=== PATIENT | male | born 1955 | race Caucasian/White ===

== ENCOUNTER 2022-10-25 13:34 | Outpatient (CLI) | payer MEDICARE, OTHER, SELFPAY ==
--- NOTE | ~2022-10-25 | MR_ITS ---
EXAMINATION: MR brain/brain stem wo con DATE: 10/25/2022 14:36 INDICATION: Unspecified dementia, mild. Memory loss. TECHNIQUE: Magnetic resonance imaging (MRI) of the brain and brainstem was performed without intraven ous contrast. COMPARISON: None. FINDINGS: There is no intracranial hemorrhage, acute infarction, or abnormal intracranial mass lesion . There are scattered areas of nonspecific increased T2-weighted signal intensity in the cerebral whi te matter. The ventricles are normal in size. There are likely changes of ocular lens replacement antoni geries. There is mild mucosal thickening in the paranasal sinuses. The mastoid air cells are normal. IMPRESSION: 1. Mild nonspecific cerebral white matter disease, which likely represents chronic small vessel ische bettye disease. Reviewed, dictated and finalized at location E. IMPRESSION: 1. Mild nonspecific cerebral white matter disease, which likely represents children's librarian idania small vessel ischemic disease.
[2022-10-25 20:48] LABS: Folic Acid > 20.0 ng/mL (2.76->20)
== END 2022-10-25 13:35 | disposition home or self-care (01) ==
PROVIDERS: PCP Family Medicine Adolescent Medicine; Visit Provider Student in an Organized Health Care Education/Training Program
DX: F03.A0 Unspecified dementia, mild, without behavioral disturbance, psychotic disturbance, mood disturbance, and anxiety (principal); E78.00 Pure hypercholesterolemia, unspecified; R93.0 Abnormal findings on diagnostic imaging of skull and head, not elsewhere classified
CPT/HCPCS: 36415; 70551; 82607; 82746; 84443

== ENCOUNTER 2023-08-25 14:12 | Outpatient (CLI) | payer MEDICARE, OTHER, SELFPAY | END 2023-08-25 14:13 | disposition home or self-care (01) | LOC: ANHAUDASC 14:14 | PROVIDERS: PCP Family Medicine Adolescent Medicine; Visit Provider Otolaryngology | DX: H93.13 Tinnitus, bilateral (principal); H90.3 Sensorineural hearing loss, bilateral | CPT/HCPCS: 92557; 92567 ==

== ENCOUNTER 2023-09-24 10:05 | Emergency (ER) | payer MEDICARE, OTHER, SELFPAY ==
--- NOTE | 2023-09-24 10:09 | ED.URI ---
HPI - URI/Sore Throat General Chief Complaint: Upper Respiratory Infection Stated Complaint: RUNNY NOSE/COVID EXPOSURE Time Seen by Provider: 09/24/23 10:19 Source: patient and RN notes reviewed Mode of arrival: ambulatory Limitations: no limitations History of Present Illness HPI Narrative: 68-year-old male presents with concern for 5 day history of runny nose, stuffy nose. Reports he had a positive COVID test 2 days ago at home. He denies fever, body aches, chills, sweats. Denies cough. Reports his brother also has COVID MD elicited complaint: rhinorrhea and nasal congestion Related Data Home Medications Medication Instructions Recorded Confirmed lisinopril 10 mg tablet 10 mg PO DAILY 04/29/21 08/11/23 melatonin 1 mg tablet 2 mg PO QHS 04/29/21 08/11/23 simvastatin 20 mg tablet 20 mg PO DAILY 04/29/21 08/11/23 testosterone 1.62 % (40.5 mg/2.5 topical 01/11/23 08/11/23 gram) transdermal gel packet ferrous sulfate 325 mg (65 mg 325 mg PO DAILY 08/11/23 08/11/23 iron) tablet (Feosol) Allergies Allergy/AdvReac Type Severity Reaction Status Date / Time No Known Allergies Allergy Verified 09/24/23 10:10 Review of Systems Review of Systems: CONSTITUTIONAL: Denies malaise, chills, sweats, or fever. EYES: Denies visual changes, redness, or discharge. ENT: Reports rhinorrhea, congestion. Denies sinus pain, otalgia and sore throat. CARDIOVASCULAR: Denies chest pain, palpitations, or edema. RESPIRATORY: Denies cough. Denies dyspnea. GASTROINTESTINAL: Denies abdominal pain, nausea, vomiting, diarrhea SKIN: Denies rash or itching. MUSCULOSKELETAL: Denies myalgia. NEUROLOGIC: Denies headache. All systems reviewed & are unremarkable except as noted in HPI and below PMFSH Surgical History Surgical History History of cataract surgery Family History Family History Sibling Patient's sister is in good health Patient's brother is in good health Mother Family history of emphysema Father Family history of congestive heart failure Diabetes mellitus Cerebrovascular accident Heart disease Grandparent Diabetes mellitus Social History Social History Smoking status: Never smoker Second hand tobacco smoke exposure: No Alcohol intake: current Drinks per week: 2 Alcohol use details: every now and then Substance use: never Substance use type: does not use Do You Feel Safe in your Home?: Yes Lack of Transportation: No Lack of Food: Never True Current Housing: I Have Housing Concerned About Future Housing: No Difficulty Paying Gas/Electric Bills: No Difficulty Paying for Meds: No Currently Unemployed: No Education: Master's Degree or Higher Difficulty w/ Childcare or Family Care: No Living arrangements: with family Occupation/Education: occupation Gender identity (if verbalized by the patient): Male Sexual Orientation (if Verbalized by the Patient): Straight or Heterosexual Spiritual care concerns: No Agree to blood products: Yes Comments At time of signature, agree with nursing past medical, surgical, social and family history. There is no relevant family history pertinent to the presenting complaint Exam Narrative: GENERAL: Well-appearing, well-nourished, and in no acute distress. HEAD: Normocephalic EYES: PERRLA, conjunctivae clear ENT: Nares clear, clear discharge. Mucous membranes moist. TM pearly ramos with dull light reflex bilaterally; no tragal tenderness. Oropharynx not erythematous without lesions. Tonsils not enlarged and without exudate, no drooling, no hoarseness, no trismus, uvula midline. NECK: Supple. No lymphadenopathy CHEST: Clear to auscultation, breath sounds equal. No wheezing, rhonchi, rales, or stridor. No respiratory distress, speaks in full sentences. HEART: Regular rate and r
[2023-09-24 10:14] VITALS: BP 139/78; PULSE 91; RESP 16; TEMP 37.1; O2SAT 100
== END 2023-09-24 10:30 | disposition home or self-care (01) ==
PROVIDERS: Emergency Provider Nurse Practitioner; PCP Family Medicine Adolescent Medicine
DX: U07.1 COVID-19 (principal)
CPT/HCPCS: 99213; G0463

== ENCOUNTER 2024-02-20 15:51 | Outpatient (CLI) | payer MEDICARE, OTHER, SELFPAY | END 2024-02-20 15:52 | disposition home or self-care (01) | PROVIDERS: PCP Family Medicine Adolescent Medicine; Visit Provider Psychiatry & Neurology Neurology | DX: G30.9 Alzheimer's disease, unspecified (principal); F02.80 Dementia in other diseases classified elsewhere, unspecified severity, without behavioral disturbance, psychotic disturbance, mood disturbance, and anxiety | CPT/HCPCS: 0346U; 36415 ==

== ENCOUNTER 2024-04-18 14:15 | Outpatient (CLI) | payer MEDICARE, OTHER, SELFPAY ==
--- OUTSIDE RECORDS SUMMARY | 2024-04-18 14:14 | XMS_ITS | Referral Summary ---
Author Organization [facility] Address [address] [facility] [place] [address] Care Team Providers Care Wire Machine Operator Name Role Phone Antonio Peña MD Primary Care Provider + Source Comments [facility],non-owned Affiliates and Associated Physician Practices is amultiple site organization consisting of ambulatory clinics and hospital sitesin [place], [place], [place] and [place]. This disclosure is being madepursuant to the Care Everywhere program and may not contain all information available regarding this patient. Last updated 17.[employer] [facility] Allergies No known active allergies Medications Be aware that medications may not be up to date on this document. Always verify current medications with the patient. No known medications Immunizations Name Administration Dates Next Due INFLUENZA VACCINE, QUADR. (F LUZONE; FLULAVAL; FLUARIX; AFLURIA QUADRIVALENT; 6MO+), 0.5 ML (IIV4) 01/14/2017 iNFLUENZA VACCINE, RECOM-MCCANN, QUADR. (FLUBLOCK QUADRIVALENT; 18Y+) (RIV4) 02/22/2018 Social History Tobacco Use Types Packs/Day Years Used Date Smoking Tobacco: Never Assessed Sex and Gender Information Value Date Recorded Sex Assigned at Not on file Gender Identity Not on file Sexual Orientation Not on file Plan of Treatment Not on file Care Teams Wire Machine Operator Relationship Specialty Start Date End Date Antoino Peña MD [address] [facility] [address] [place] [address] PCP - General Family Medicine 01/14/17
--- OUTSIDE RECORDS SUMMARY | 2024-04-18 14:14 | XMS_ITS | Continuity of Care Document ---
Author Organization [facility] Address [address] [place] [address] [address] [place] [address] Phone Care Team Providers Care Fisheries Technical Officer Name Role Phone Reddy OD, Phani Unavailable Unavailable Procedures Procedure Date Eye Exam & Treatment Refraction Eye Exam & Treatment Refraction Advance Directives Directive Yes / No Effective Date File Name No Information Encounters Encounter Description Practice Location Reason(s) For Visit Diagnoses Date Provider Providers Copied on Encounter [facility], [address] [place] [address] [address], [place], [place], [id number], tel:[phone] [facility] No Information Nov-0 8-200 9 Reddy OD Phani. [address] [facility] , [address], [place], [place], [facility], . tel:[phone] Referring Provider: Antonio Peña MD, [address] [place] [address], [address]. tel:[phone] [facility], [address] [place] [address] [address], [place], [place], [address], tel:[phone] [facility] No Information 1-200 7 Reddy OD Phani. [address] [facility] [address], [address], [place], [address], . tel:[phone] Referring Provider: Antonio Peña MD, [address] [place] [address], [address]. tel:[phone] Family History Family Member Type Diagnosis Age At Onset No Information Payers Payer name Insurance type Covered democrat ID Amena riggs(s) [employer] Plan [id number] 2 Social History Type Description Quantity Date [...]
--- OUTSIDE RECORDS SUMMARY | 2024-04-18 14:14 | XMS_ITS | Patient Health Summary ---
Author Organization [facility] Address [address] [facility] [place] [address] Care Team Providers Care Biomedical Engineering Professor Name Role Phone Antonio Peña MD Primary Care Provider + Note from [facility],non-owned Affiliates and Associated Physician Practices is amultiple site organization consisting of ambulatory clinics and hospital sitesin [place]. This disclosure is being madepursuant to the Care Everywhere program and may not contain all information available regarding this patient. Last updated 17.[facility] Allergies No known active allergies Medications Be aware that medications may not be up to date on this document. Always verify current medications with the patient. No known medications Immunizations * INFLUENZA VACCINE, QUADR. (FLUZONE; FLULAVAL; FLUARIX; AFLURIA QUADRIVALENT; 6MO+), 0.5 ML (IIV4)(Given 01/14/2017) * iNFLUENZA VACCINE, RECOM-MCCANN, QUADR. (FLUBLOCK QUADRIVALENT; 18Y+) (RIV4)(Given 02/22/2018) Social History Tobacco Use Types Packs/Day Years Used Date Smoking Tobacco: Never Assessed Sex and Gender Information Value Date Recorded Sex Assigned at Not on file Gender Identity Not on file Sexual Orientation Not on file Care Teams Biomedical Engineering Professor Relationship Specialty Start Date End Date Antonio Peña MD [address] [facility] [address] [place] [address] PCP - General Family Medicine 01/14/17
--- OUTSIDE RECORDS SUMMARY | 2024-04-18 14:14 | XMS_ITS | Clinical Summary ---
Author Organization [facility] Address [address] [place] [address] Care Team Providers Care Screw Eye Assembler Name Role Phone Unavailable Primary Care Provider Unavailabl e Social History Tobacco Use Types Packs/Day Years Used Date Smoking Tobacco: Never Assessed Sex and Gender Information Value Date Recorded Sex Assigned at Not on file Legal Sex Male 9:53 AM INSIDE SALES ASSISTANT Gender Identity Not on file Sexual Orientation Not on file Plan of Treatment Health Maintenance Due Date Last Done Comments Hepatitis C Virus (HCV) Screening 1955 TdaP Immunization 1956 Colonoscopy 2001 Colorectal Cancer Screening 2001 Cologuard 2006 Immunochemical Fecal Occult Blood 2006 Pneumococcal Immunization (50+ years) (1 of 1 - PCV) 2006 Zoster Immunization (1 of 2) 2006 PSA Discussion 2011 Influenza Immunization (#1) 2023 09/2 , 11/20/2018, 02/22/2018, Additional history exists SARS-COV-2 Immunization ( season) 2023 05/22/2020, 04/24/2020 Respiratory Syncytial Virus (RSV) Immunization (Adult) (1 - 1-dose 75+ series) 2031 Hepatitis B Immunization Aged Out No longer eligible based on patient's age to complete this topic Meningococcal Immunization (ACWY) Aged Out No longer eligible based on patient's age to complete this topic Rotavirus Immunization Aged Out No lo nger eligible based on patient's age to complete this topic
--- OUTSIDE RECORDS SUMMARY | 2024-04-18 14:14 | XMS_ITS | Clinical Summary ---
Author Organization [email or web address] Address [address] [facility] [place] [address] Care Team Providers Care Photographic Developer And Printer Name Role Phone Antonio Peña MD Primary Care Provider + Source Comments [email or web address],non-owned Affiliates and Associated Physician Practices is amultiple site organization consisting of ambulatory clinics and hospital sitesin [place], [place], [place]. This disclosure is being madepursuant to the Care Everywhere program and may not contain all information available regarding this patient. Last updated 17.[employer] [email or web address] Allergies No known active allergies Medications Be [...] Health Maintenance Due Date Last Done Comments COLOGUARD (AGES 45-75) - COL ON CA SCREENING 1956 COLON MONITORING 1956 COLONOSCOPY - COLON CA SCREENING 1956 CT COLONOGRAPHY - COLON CA SCREENING 1956 Colorectal Cancer Screening 1956 FIT - COLON CA SCREENING 1956 FLEX SIG - COLON CA SCREENING 1956 LIPID TESTING 1956 HEPATITIS C SCREENING 03/28/1974 DTAP/TDAP/TD VACCINES (1 - Tdap) 1975 PNEUMOCOCCAL VACCINE 50+ (1 of 1 - PCV) 2006 ZOSTER VACCINE (1 of 2) 2006 COVID-19 VACCINE (1 - 2023-2 5 season) 2023 INFLUENZA VACCINE (#1) 2023 8, 01/14/2017 DEPRESSION SCREENING 02/29/2024 Respiratory Syncytial Virus (RSV) Vaccine Pt: or over 60 yrs (1 - 1-dose 75+ series) 2031 HEPATITIS B VACCINE Aged Out No longe r eligible based on patient's age to complete this topic HIB VACCINE Aged Out No longer eligi ble based on patient's age to complete this topic HPV VACCINE Aged Out No longer eligi ble based on patient's age to complete this topic MENINGOCOCCAL (Group B) VACCINE Aged Out No longer eligible b ased on patient's age to complete this topic MENINGOCOCCAL VACCINE Aged Out No yann candice eligible based on patient's age to complete this topic Care Teams Photographic Developer And Printer Relationship Specialty Start Date End Date Antonio Peña MD [address] [facility] [address] [place] [address] PCP - General Family Medicine 01/14/17
--- OUTSIDE RECORDS SUMMARY | 2024-04-18 14:22 | XMS_ITS | Continuity of Care Document ---
Author Organization [facility] Address [address] [place] [address] [address] [place] [address] Phone Care Team Providers Care Braided Band Assembler Name Role Phone Reddy OD, Phani Unavailable Unavailable Procedures Procedure Date Eye Exam & Treatment Refraction Eye Exam & Treatment Refraction Advance Directives Directive Yes / No Effective Date File Name No Information Encounters Encounter Description Practice Location Reason(s) For Visit Diagnoses Date Provider Providers Copied on Encounter [facility], [address] [place] [address] [address], [place], [place], [id number], tel:[phone] [facility] No Information Nov-0 8-200 9 Reddy OD Phani. [address] [facility] , [address], [place], [place], [facility], . tel:[phone] Referring Provider: Antonio Peña MD, [address] [place] [address], [address]. tel:[phone] [facility], [address] [place] [address] [address], [place], [place], [id number], tel:[phone] [facility] No Information 1-200 7 Reddy OD Phani. [address] [facility] [address], [address], [place], [address], . tel:[phone] Referring Provider: Antonio Peña MD, [address] [place] [address], [address]. tel:[phone] Family History Family Member Type Diagnosis Age At Onset No Information Payers Payer name Insurance type Covered alliance party ID Amena riggs(s) [employer] Vision Plan [id number] 2 Social History Type Description Quantity Date [...]
[2024-04-22 02:57] LABS: Phos tau181(p-tau181) Plasma 2.15 pg/mL (< OR = 1.07)
[2024-04-22 22:13] LABS: A Beta 42 50 pg/mL; ABETA 40 331 pg/mL; Beta Amyloid 42/40 Ratio Plasm 0.151 (> OR = 0.170)
[2024-04-24 03:25] LABS: Neurofilament Light Chain Plas 3.72 pg/mL (<12.28)
== END 2024-04-18 14:16 | disposition home or self-care (01) ==
PROVIDERS: PCP Family Medicine Adolescent Medicine; Visit Provider Psychiatry & Neurology Neurology
DX: G30.9 Alzheimer's disease, unspecified (principal); F02.80 Dementia in other diseases classified elsewhere, unspecified severity, without behavioral disturbance, psychotic disturbance, mood disturbance, and anxiety
CPT/HCPCS: 36415; 82233; 84393

== ENCOUNTER 2024-05-03 13:58 | Outpatient (CLI) | payer MEDICARE, OTHER, SELFPAY ==
--- NOTE | ~2024-05-03 | CT_ITS ---
CT abdomen pelvis wo/w con Ordering provider: Sandro Farris MD History: 69 years Male with . GROSS HEMATURIA . Comparison: None. Technique: CT abdomen and pelvis with IV and without oral contrast. Automated exposure control and it erative reconstruction technique were employed. The dose-length product was 1698.36 mGy-cm. 130 mL Om nipaque 350 was given IV. Findings: VISUALIZED LOWER CHEST: Dependent atelectatic changes. Multiple small calcified granulomas. UPPER ABDOMINAL ORGANS: Liver: Tiny cysts in the right lobe of the liver measuring 5 mm segment #6 and segment #8 Gallbladder: Normal. Spleen: Normal. Stomach/duodenum: Normal. Pancreas: Normal. Adrenals: Normal. Kidneys: Mass is seen in the left kidney lower pole measuring 6.1 x 4.9x 8.2 cm most likely renal ashlyn l carcinoma. Central necrosis is noted. Small focus of calcification seen in the mass. The mass is ab utting the left psoas muscle. Thickening of the left renal pelvis is seen. Left upper pole cyst seen measuring 3.1 cm. PELVIC ORGANS: The bladder is underfilled with slightly thickened wall. Penile prosthesis is noted. BOWEL AND MESENTERY: Colon: No evidence of diverticulitis.. The appendix is not demonstrated. Small Bowel: Normal. No obstruction. Peritoneum/mesentery: No free air or free fluid. No mesenteric lymphadenopathy. RETROPERITONEUM: Mild atheromatous disease of the abdominal aorta. Single origin of the superior mes enteric and celiac artery is seen. No retroperitoneal lymphadenopathy. Small para-aortic lymph nodes are seen. MUSCULOSKELETAL: Superficial soft tissues: The superficial soft tissues are normal. Bones: Age appropriate degenerative changes of the spine. IMPRESSION: 1. Left renal mass most likely renal cell carcinoma. The mass is abutting the left psoas muscle. Foc us of calcification with central necrosis is seen. Thickening of the wall of the left renal pelvis is also noted which may be inflammatory or due to infiltration.. 2. No evidence of appendicitis, diverticulitis or intestinal obstruction Reviewed, dictated and finalized at location A. ING DEVICES ASSEMBLER IMPRESSION: 1. Left renal mass most likely renal cell carcinoma. The mass is abutting the left psoas muscle. Focus of calcification with central necrosis is seen. Thicke lisa of the wall of the left renal pelvis is also noted which may be inflammato ry or due to infiltration.. 2. No evidence of appendicitis, diverticulitis or intestinal obstruction
--- OUTSIDE RECORDS SUMMARY | 2024-05-03 15:17 | XMS_ITS | Continuity of Care Document ---
Author Organization [facility] Address [address] [place] [address] [address] [place] [address] Phone Care Team Providers Care Database Technician Name Role Phone Reddy OD, Phani Unavailable Unavailable Procedures Procedure Date Eye Exam & Treatment Refraction Eye Exam & Treatment Refraction Advance Directives Directive Yes / No Effective Date File Name No Information Encounters Encounter Description Practice Location Reason(s) For Visit Diagnoses Date Provider Providers Copied on Encounter [facility], [address] [place] [address] [address], [place], [place], [id number], tel:[phone] [facility] No Information 0 8-200 9 Reddy OD Phani. [address] [facility] , [address], [place], [place], [facility], . tel:[phone] Referring Provider: Antonio Peña MD, [address] [place] [address], [address]. tel:[phone] [facility], [address] [place] [address] [address], [place], [place], [address], tel:[phone] [facility] No Information 1-200 7 Reddy OD Phani. [address] [facility] [address], [place], [address], . tel:[phone] Referring Provider: Antonio Peña MD, [address] [place] [address], [address]. tel:[phone] Family History Family Member Type Diagnosis Age At Onset No Information Payers Payer name Insurance type Covered democrat ID Amena riggs(s) [employer] Vision Plan [id number] 2 Social History Type Description Quantity Date [...]
--- OUTSIDE RECORDS SUMMARY | 2024-05-03 15:17 | XMS_ITS | Referral Summary ---
Author Organization [facility] Address [address] [facility] [place] [address] Care Team Providers Care Aircraft Life Support Fitter Name Role Phone Antonio Peña MD Primary Care Provider + Source Comments [facility],non-owned Affiliates and Associated Physician Practices is amultiple site organization consisting of ambulatory clinics and hospital sitesin [place], [place], [place] and [place]. This disclosure is being madepursuant to the Care Everywhere program and may not contain all information available regarding this patient. Last updated 17.[employer] [facility] Allergies No known active allergies Medications Be [...] of Treatment Not on file Care Teams Aircraft Life Support Fitter Relationship Specialty Start Date End Date Antonio Peña MD [address] [facility] [address] [place] [address] PCP - General Family Medicine 01/14/17
--- OUTSIDE RECORDS SUMMARY | 2024-05-03 15:17 | XMS_ITS | Clinical Summary ---
Author Organization [facility] Address [address] [place] [address] Care Team Providers Care Drainlayer Name Role Phone Unavailable Primary Care Provider Unavailabl e Social History Tobacco Use Types Packs/Day Years Used Date Smoking Tobacco: Never Assessed Sex and Gender Information Value Date Recorded Sex Assigned at Not on file Legal Sex Male 9:53 AM WINCH DRIVER Gender Identity Not on file Sexual Orientation [...]
--- OUTSIDE RECORDS SUMMARY | 2024-05-03 15:17 | XMS_ITS | Clinical Summary ---
Author Organization [facility] Address [address] [place] [address] Care Team Providers Care Automotive Porter Name Role Phone Antonio Peña MD Primary Care Provider + Source Comments [facility],non-owned Affiliates and Associated Physician Practices is amultiple site organization consisting of ambulatory clinics and hospital sitesin [place], [place], [place] and [place]. This disclosure is being madepursuant to the Care Everywhere program and may not contain all information available regarding this patient. Last updated 17.[employer] [facility] Allergies No known active allergies Medications Be [...] age to complete this topic Care Teams Automotive Porter Relationship Specialty Start Date End Date Antonio Peña MD [address] [facility] 100 [place] [address] PCP - General Family Medicine 01/14/17
--- OUTSIDE RECORDS SUMMARY | 2024-05-03 15:17 | XMS_ITS | Patient Health Summary ---
Author Organization [facility] [employer] Address [address] [place] [address] Care Team Providers Care Tail Sawyer Name Role Phone Antonio Peña MD Primary Care Provider + Note from [facility],non-owned Affiliates and Associated Physician Practices is amultiple site organization consisting of ambulatory clinics and hospital sitesin [place], [place], [place] and [place]. This disclosure is being madepursuant to the Care Everywhere program and may not contain all information available regarding this patient. Last updated 17.[facility] [employer] Allergies No known active allergies Medications Be [...] Sexual Orientation Not on file Care Teams Tail Sawyer Relationship Specialty Start Date End Date Antonio Peña MD [address] [facility] [address] [place] [address] PCP - General Family Medicine 01/14/17
== END 2024-05-03 13:59 | disposition home or self-care (01) ==
LOC: ANHIMG 14:00
PROVIDERS: PCP Family Medicine Adolescent Medicine; Visit Provider Urology
DX: R93.41 Abnormal radiologic findings on diagnostic imaging of renal pelvis, ureter, or bladder (principal); N28.89 Other specified disorders of kidney and ureter; N28.0 Ischemia and infarction of kidney; R31.0 Gross hematuria
CPT/HCPCS: 74178; Q9967

== ENCOUNTER 2024-05-04 02:18 | Inpatient (IN) | payer MEDICARE, OTHER, SELFPAY ==
[2024-05-04] VITALS (13 sets, daily range): BP systolic 128–180; BP diastolic 68–98; PULSE 68–88; RESP 15–18; TEMP 36.4–36.9; O2SAT 96–100; BMI 29.9
--- NOTE | ~2024-05-04 | US_ITS ---
EXAMINATION: US pelvic limited DATE: 05/04/2024 12:39 INDICATION: Hematuria. TECHNIQUE: Multiple transabdominal sonographic images of the pelvis were obtained. COMPARISON: CT abdomen and pelvis 05/04/2024 FINDINGS: There is a Gamboa catheter in expected position. There is echogenic material in the bladder, consisten t with hematoma. IMPRESSION: 1. Hematoma in the bladder. Reviewed, dictated and finalized at location A. E [employer]GE IMPRESSION: 1. Hematoma in the bladder.
--- NOTE | ~2024-05-04 | CT_ITS ---
CT abdomen pelvis wo con Ordering provider: Manuel Noyola MD History: 69 years Male with . assess upper and lower urinary tract clot burden . Comparison: May 04, 2024 Technique: CT abdomen and pelvis without IV and without oral contrast. Automated exposure control and iterative reconstruction technique were employed. The dose-length product was 891.47 mGy-cm. Findings: VISUALIZED LOWER CHEST: Dependent atelectatic changes. UPPER ABDOMINAL ORGANS: Liver: Normal. Gallbladder: Normal. Spleen: Normal. Stomach/duodenum: Normal. Pancreas: Normal. Adrenals: Normal. Kidneys: Left kidney lower pole mass unchanged from previous examination. Left kidney upper pole cyst . Filling defect is seen in the left renal pelvis which may be a clot. Follow-up advised. PELVIC ORGANS: The bladder is underfilled with Gamboa's catheter. Minimal contrast is seen in the blad vandana. Previously seen clot is not well demonstrated. Penile prosthesis is noted. BOWEL AND MESENTERY: Colon: No evidence of diverticulitis. Normal appendix. Small Bowel: Normal. No obstruction. Peritoneum/mesentery: No free air or free fluid. No mesenteric lymphadenopathy. RETROPERITONEUM: Mild atheromatous disease of the abdominal aorta. No retroperitoneal lymphadenopat hy. MUSCULOSKELETAL: Superficial soft tissues: The superficial soft tissues are normal. Bones: Age appropriate degenerative changes of the spine. IMPRESSION: 1. Left kidney lower pole mass. 2. Possible clot in the left renal pelvis. The urinary bladder is underfilled no definite clot seen. 3. Other appearances are unchanged from previous study Reviewed, dictated and finalized at location A.
--- NOTE | ~2024-05-04 | CT_ITS ---
EXAMINATION: CT abdomen pelvis wo con DATE: 05/04/2024 04:03 INDICATION: Hematuria. TECHNIQUE: Computed tomography (CT) of the abdomen and pelvis was performed without intravenous contr ast. Automated exposure control and iterative reconstruction technique were employed. The dose-length product was 1005.24 mGy-cm. COMPARISON: CT abdomen and pelvis 05/03/2024 FINDINGS: The visualized portions of the lung bases demonstrate subpleural bands in the lower lobes, consistent with mild chronic lung disease. There is mild atelectasis in right lung. There is a 4 mm n odule left lower lobe, likely benign. No pleural effusion. The heart size is normal. No pericardial e ffusion. There is a small sliding hiatal hernia. The liver is normal. Calcifications in the spleen ar e consistent with old granulomatous disease. There is contrast in the gallbladder, which is normal in size. The pancreas and adrenal glands are normal. There is a 3.3 cm cyst in left kidney. There is a 7.4 cm enhancing mass in left kidney. There is mild bilateral hydronephrosis and hydroureter. There a re persistent contrast nephrograms, left worse than right. The prostate is moderately enlarged. The b ladder is distended. There is a Gamboa catheter in expected position. There is diffuse bladder wall th ickening, likely secondary to chronic outlet obstruction. There is heterogeneous attenuation of mater ial in the bladder. The appendix is normal. There are no pathologically enlarged lymph nodes. There i s no free intraperitoneal fluid. There is a penile prosthesis. There is severe lumbar spondylosis and mild thoracic spondylosis. There is mild chronic anterior wedging of multiple vertebral bodies. IMPRESSION: 1. 7.4 cm enhancing mass in left kidney, consistent with renal cell carcinoma. 2. Distended bladder with mild bilateral hydronephrosis and hydroureter. Heterogeneous attenuation of material in the bladder, consistent with hematoma. Reviewed, dictated and finalized at location A. [employer] SERVICES ANALYST IMPRESSION: 1. 7.4 cm enhancing mass in left kidney, consistent with renal cell carcinoma. 2. Distended bladder with mild bilateral hydronephrosis and hydroureter. Hetero geneous attenuation of material in the bladder, consistent with hematoma.
--- OUTSIDE RECORDS SUMMARY | 2024-05-04 02:21 | XMS_ITS | Patient Health Summary ---
Author Organization [facility] [employer] Address [address] [place] [address] Care Team Providers Care Washing Tub Operator Name Role Phone Antonio Peña MD Primary Care Provider + Note from [facility],non-owned Affiliates and Associated Physician Practices is amultiple site organization consisting of ambulatory clinics and hospital sitesin [place], [place] and [place]. This disclosure is being madepursuant to the Care Everywhere program and may not contain all information available regarding this patient. Last updated 17.[facility] [employer] Allergies No known active allergies Medications Be [...] Sexual Orientation Not on file Care Teams Washing Tub Operator Relationship Specialty Start Date End Date Antonio Peña MD [address] [facility] [address] [place] [address] PCP - General Family Medicine 01/14/17
--- OUTSIDE RECORDS SUMMARY | 2024-05-04 02:21 | XMS_ITS | Continuity of Care Document ---
Author Organization [facility] Address [address] [place] [address] [address] [place] [address] Phone Care Team Providers Care Machine Shop Lead Man Name Role Phone Reddy OD, Phani Unavailable Unavailable Procedures Procedure Date Eye Exam & Treatment Refraction Eye Exam & Treatment Refraction Advance Directives Directive Yes / No Effective Date File Name No Information Encounters Encounter Description Practice Location Reason(s) For Visit Diagnoses Date Provider Providers Copied on Encounter [facility], [address] [place] [address] [address], [place], [place], [id number], tel:[phone] SEC [facility] No Information Nov-0 8-200 9 Reddy OD Phani. [address] [facility] , [address], [place], [address], . tel:[phone] Referring Provider: Antonio Peña MD, [address] [place] [address], [address]. tel:[phone] [facility], [address] [place] [address] [address], [place], [place], [id number], tel:[phone] [facility] No Information 1-200 7 Reddy OD Phani. [address] [facility] [address], [address], [place], [address], . tel:[phone] Referring Provider: Antonio Peña MD, [address] [place] [address], [address]. tel:[phone] Family History Family Member Type Diagnosis Age At Onset No Information Payers Payer name Insurance type Covered alliance party ID Amena riggs(s) [employer] Vision Plan [id number] 2 Social History Type Description Quantity Date [...]
--- OUTSIDE RECORDS SUMMARY | 2024-05-04 02:21 | XMS_ITS | Clinical Summary ---
Author Organization 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
--- OUTSIDE RECORDS SUMMARY | 2024-05-04 02:21 | XMS_ITS | Referral Summary ---
Author Organization [facility] [employer] Address [address] [facility] [place] [address] Care Team Providers Care Diving Coach Name Role Phone Antonio Peña MD Primary Care Provider + Source Comments [facility] [employer],non-owned Affiliates and Associated Physician Practices is amultiple site organization consisting of ambulatory clinics and hospital sitesin [place], [place], [place] and [place]. This disclosure is being madepursuant to the Care Everywhere program and may not contain all information available regarding this patient. Last updated 17.[employer] Allergies No known active allergies Medications Be [...] of Treatment Not on file Care Teams Diving Coach Relationship Specialty Start Date End Date Antonio Peña MD [address] [facility] [address] [place] [address] PCP - General Family Medicine 01/14/17
--- OUTSIDE RECORDS SUMMARY | 2024-05-04 02:21 | XMS_ITS | Clinical Summary ---
Author Organization [facility] [employer] Address [address] [place] [address] Care Team Providers Care Physician Assistant Name Role Phone Antonio Peña MD Primary Care Provider + Source Comments [facility] [employer],non-owned Affiliates and Associated Physician Practices is amultiple site organization consisting of ambulatory clinics and hospital sitesin [place], [place], [place] and [place]. This disclosure is being madepursuant to the Care Everywhere program and may not contain all information available regarding this patient. Last updated 17.[employer] Allergies No known active allergies Medications Be [...] age to complete this topic Care Teams Physician Assistant Relationship Specialty Start Date End Date Antonio Peña MD [address] [facility] [address] [place] [address] PCP - General Family Medicine 01/14/17
[2024-05-04] MEDS: WATER FOR IRRIGATION, STERILE 500 ML BOTTLE (03:20)
[2024-05-04] MEDS: NACL 0.9% IRRIGATION POUR BOTTLE 500 ML (03:20)
--- OUTSIDE RECORDS SUMMARY | 2024-05-04 03:37 | XMS_ITS | Clinical Summary ---
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
--- OUTSIDE RECORDS SUMMARY | 2024-05-04 03:37 | XMS_ITS | Clinical Summary ---
Author Organization [facility] [employer] Address [address] [place] [address] Care Team Providers Care Emergency Veterinarian Name Role Phone Antonio Peña MD Primary Care Provider + Source Comments [facility] [employer],non-owned Affiliates and Associated Physician Practices is amultiple site organization consisting of ambulatory clinics and hospital sitesin [place], [place], [place] and [place]. This disclosure is being madepursuant to the Care Everywhere program and may not contain all information available regarding this patient. Last updated 17.[employer] Allergies No known active allergies Medications Be [...] age to complete this topic Care Teams Emergency Veterinarian Relationship Specialty Start Date End Date Antonio Peña MD [address] [facility] 100 [place] [address] PCP - General Family Medicine 01/14/17
--- OUTSIDE RECORDS SUMMARY | 2024-05-04 03:37 | XMS_ITS | Patient Health Summary ---
Author Organization [facility] [employer] Address [address] [place] [address] Care Team Providers Care Drier Take Off Tender Name Role Phone Antonio Peña MD Primary Care Provider + Note from [facility],non-owned Affiliates and Associated Physician Practices is amultiple site organization consisting of ambulatory clinics and hospital sitesin [place], [place], [place] and [place]. This disclosure is being madepursuant to the Care Everywhere program and may not contain all information available regarding this patient. Last updated 17.[facility] [employer] Allergies No known active allergies Medications Be [...] Sexual Orientation Not on file Care Teams Drier Take Off Tender Relationship Specialty Start Date End Date Antonio Peña MD [address] [facility] [address] [place] [address] PCP - General Family Medicine 01/14/17
--- OUTSIDE RECORDS SUMMARY | 2024-05-04 03:37 | XMS_ITS | Referral Summary ---
Author Organization [facility] [employer] Address [address] [facility] [place] [address] Care Team Providers Care Coin Machine Assembler Name Role Phone Antonio Peña MD Primary Care Provider + Source Comments [facility] [employer],non-owned Affiliates and Associated Physician Practices is amultiple site organization consisting of ambulatory clinics and hospital sitesin [place], [place], [place] and [place]. This disclosure is being madepursuant to the Care Everywhere program and may not contain all information available regarding this patient. Last updated 17.[employer] Allergies No known active allergies Medications Be [...] of Treatment Not on file Care Teams Coin Machine Assembler Relationship Specialty Start Date End Date Antonio Peña MD [address] [facility] [address] [place] [address] PCP - General Family Medicine 01/14/17
--- OUTSIDE RECORDS SUMMARY | 2024-05-04 03:37 | XMS_ITS | Continuity of Care Document ---
Author Organization [facility] Address [address] [place] [address] [address] [place] [address] Phone Care Team Providers Care Sustainability Coach Name Role Phone Reddy OD, Phani Unavailable Unavailable Procedures Procedure Date Eye Exam & Treatment Refraction Eye Exam & Treatment Refraction Advance Directives Directive Yes / No Effective Date File Name No Information Encounters Encounter Description Practice Location Reason(s) For Visit Diagnoses Date Provider Providers Copied on Encounter [facility], [address] [place] [address] [address], [place], [place], [id number], tel:[phone] SEC [facility] No Information Nov-0 8-200 9 Reddy OD Phani. [address] [facility] , [address], [place], [address], . tel:[phone] Referring Provider: Antonio Peña MD, [address] [place] [address], [address]. tel:[phone] [facility], [address] [place] [address] [address], [place], [place], [id number], tel:[phone] [facility] No Information 1-200 7 Reddy OD Phani. [address] [facility] [address], [address], [place], [address], . tel:[phone] Referring Provider: Antonio Peña MD, [address] [place] [address], [address]. tel:[phone] Family History Family Member Type Diagnosis Age At Onset No Information Payers Payer name Insurance type Covered republican ID Amena riggs(s) [employer] Vision Plan [id number] 2 Social History Type Description Quantity Date [...]
--- NOTE | 2024-05-04 03:39 | PC.NURSE ---
18 Fr 3-way hall placed originally, was able to get some bloody urine return but urine was coming out around hall. Exchanged the 18 Fr hall for a 3-way 22 Fr hall. Able to manually irrigate with some clots present. Dr. Lawrence at bedside, will place orders for continuous irrigation.
[2024-05-04 04:08] LABS: Basophils Percent Auto 0.3 % (0.2-1.2); Eosinophils Absolute Auto 0.1 K/mm3 (0-0.3); Eosinophils Percent Auto 0.8 % (0-4.4); Hematocrit 38.7 % (42.0-52.0); Hemoglobin 13.1 g/dL (14.0-18.0); Immature Granulocyte Absolute 0.04 K/mm3 (0.00-0.031); Immature Granulocyte Percent A 0.4 % (0-0.5); Lymphocytes Percent Auto 15.4 % (18.3-44.2); Mean Corpuscular HGB Conc 33.9 g/dl (32-36); Mean Corpuscular Hemoglobin 30.5 pg (26-34); Mean Corpuscular Volume 90.2 fl (80-100); Mean Platelet Volume 10.6 fl (7.4-10.4); Monocytes Percent Auto 9.3 % (2.6-8.5); Neutrophils Absolute Auto 8.1 K/mm3 (1.3-6.7); Neutrophils Percent Auto 73.8 % (45.5-73.1); Platelet Count Result 219 k/mm3 (150-375); Red Blood Count 4.29 M/mm3 (4.6-6.20); Red Cell Distribution Width 13.1 % (11.5-14.5)
[2024-05-04 04:19] LABS: Bacteria Urine None Seen /hpf; INR 1.1; Need Manual Microscopic Reviewed; Prothrombin Time 14.1 Seconds (11.1-14.7); RBC Urine >100 /hpf (0-2); Squamous Epithelial Cell Urine Occasional /hpf (Few)
[2024-05-04 04:20] LABS: Add Urine Microscopic? YES; Appearance Urine Turbid (Clear); Bilirubin Urine 1+ (Negative); Blood Urine 3+ (Negative); Color Urine Red (Yellow); Glucose Urine UA 2+ mg/dL (Negative); Ketones Urine Negative (Negative); Leukocyte Esterase Ur 1+ LEU/UL (Negative); Nitrate Urine Positive (Negative); Protein Urine 3+ mg/dL (Negative); Specific Grav Ur 1.011 (1.001-1.035); Urobilinogen Urine 0.2 mg/dL (<2.0)
[2024-05-04] MEDS: LIDOCAINE 2% GEL UROJET 10 ML PKG MUCOUS MEM (04:29)
[2024-05-04 04:32] LABS: Alanine Aminotransferase 21 U/L (6-50); Albumin Level 4.3 g/dL (3.5-5.1); Alkaline Phosphatase 74 U/L (38-126); Anion Gap 15 mmol/L (4-12); Aspartate Amino Transferase 27 U/L (17-59); Bilirubin,Total 0.5 mg/dL (0.2-1.3); Blood Urea Nitrogen 19 mg/dL (9-20); Calcium 8.9 mg/dL (8.4-10.2); Carbon Dioxide 18 mmol/L (22-30); Chloride 101 mmol/L (98-107); Estimated CRCL calculation 53 ml/min; Estimated Glomerular Filt Rate 59; Glucose 126 mg/dL (65-110); Magnesium 1.7 mg/dL (1.6-2.3); Potassium 4.3 mmol/L (3.4-5.0); Sodium 134 mmol/L (137-145)
--- NOTE | 2024-05-04 05:00 | ED_ITS ---
HPI - General Adult General Chief complaint: Urogenital-Male Stated complaint: my bladder is stopped up Time Seen by Provider: 05/04/24 03:24 History of Present Illness HPI narrative: Patient is a 69-year-old gentleman who presents emergency department with chief complaint of hematuria and inability to urinate. The patient has been having intermittent hematuria for last several weeks sees urology had an outpatient CT scan and then has had clots in his urine and has been unable to urinate since he was unable to pass a clot. The patient states he has uncomfortableness with attempted to urinate and feels as though he has a full bladder. Related Data Home Medications ?Medication ?Instructions ?Recorded ?Confirmed ?Last Taken ?Type lisinopril 10 mg tablet 10 mg PO DAILY 04/29/21 04/25/24 Unknown History melatonin 1 mg tablet 2 mg PO QHS 04/29/21 04/25/24 Unknown History simvastatin 20 mg tablet 20 mg PO DAILY 04/29/21 04/25/24 Unknown History testosterone 1.62 % (40.5 mg/2.5 topical 01/11/23 04/25/24 Unknown History gram) transdermal gel packet Allergies Allergy/AdvReac Type Severity Reaction Status Date / Time No Known Allergies Allergy Verified 05/04/24 02:19 Review of Systems 2 Review of Systems: A 10 system review of systems was completed on the patient and is negative except for what is stated in the HPI. Nursing and ancillary documentation was reviewed. [facility] Past Medical History Medical History REM behavioral disorder Obstructive sleep apnea syndrome in adult Dementia of the Alzheimer's type Surgical History Surgical History History of cataract surgery Family History Family History Sibling Patient's sister is in good health Patient's brother is in good health Mother Family history of emphysema Father Family history of congestive heart failure Diabetes mellitus Cerebrovascular accident Heart disease Grandparent Diabetes mellitus Social History Social History Smoking status: Never smoker Second hand tobacco smoke exposure: No Alcohol intake: current Drinks per week: 2 Alcohol use details: every now and then Substance use: never Substance use type: does not use Do You Feel Safe in your Home?: Yes Lack of Transportation: No Lack of Food: Never True Current Housing: I Have Housing Concerned About Future Housing: No Difficulty Paying Gas/Electric Bills: No Difficulty Paying for Meds: No Currently Unemployed: No Education: Master's Degree or Higher Difficulty w/ Childcare or Family Care: No Living arrangements: with family Occupation/Education: occupation Gender identity (if verbalized by the patient): Male Sexual Orientation (if Verbalized by the Patient): Straight or Heterosexual Spiritual care concerns: No Agree to blood products: Yes Exam 2 Narrative: GENERAL: Well-appearing, well-nourished, and in no acute distress. HEAD: Normocephalic, atraumatic. EYES: PERRLA and EOMI. ENT: Nares clear, no rhinorrhea or epistaxis. Mucous membranes moist. NECK: Supple. CHEST: Clear to auscultation. No respiratory distress. HEART: Regular rate and rhythm. No murmur heard. Normal peripheral pulses. ABDOMEN: Soft, nontender, nondistended, normal active bowel sounds. : Gamboa catheter in place there are clots in the urine and there is difficulty irrigating EXTREMITIES: Normal range of motion. No edema. SKIN: Warm, dry, no rash. NEURO: No focal deficits. Alert and oriented x3. PSYCH: Normal mood and affect. Course Vital Signs Vital signs: Vital Signs Temperature 36.4 C L 05/04/24 02:21 Pulse Rate 72 05/04/24 02:21 Respiratory Rate 18 05/04/24 02:21 Blood Pressure 163/98 H 05/04/24 02:21 Pulse Oximetry 98 05/04/24 02:21 Oxygen Delivery Room Air 05/04/24 02:21 Temperature 36.4 C L 05/04/24 02:21 Pulse Rate 68 05/04/24 04:30 Respiratory Rate 16 05/04/24 04:30 Blood Pressure 159/82 H 05/04/24 04:30 Pulse Oximetry 97 05/04/24 04:30 Oxygen Delivery Room Air 05/04/24 02:21 Medical Decision Making MDM Narrative Medical decision making narrative: Differential diagnosis includes large clot burden in the bladder, hematuria, UTI Patient's urinalysis was nitrate positive and positive for leukocyte esterase with 11-20 white blood cells the patient was started on Rocephin A 3 way catheter was placed patient was manually irrigated and then CBI was initiated. The case was discussed with Urology who will consult on the patient CT scan showed heterogeneous fluid within the bladder concerning for UA blood products Vital Signs Vital Signs: Vital Signs Temperature 36.4 C L 05/04/24 02:21 Pulse Rate 72 05/04/24 02:21 Respiratory Rate 18 05/04/24 02:21 Blood Pressure 163/98 H 05/04/24 02:21 Pulse Oximetry 98 05/04/24 02:21 Oxygen Delivery Room Air 05/04/24 02:21 Temperature 36.4 C L 05/04/24 02:21 Pulse Rate 68 05/04/24 04:30 Respiratory Rate 16 05/04/24 04:30 Blood Pressure 159/82 H 05/04/24 04:30 Pulse Oximetry 97 05/04/24 04:30 Oxygen Delivery Room Air 05/04/24 02:21 Lab Data 05/04/24 03:52 05/04/24 03:52 Labs: Lab Results 05/04/24 Range/Units 03:52 WBC 11.0 H (4.5-10.0) K/mm3 RBC 4.29 L (4.6-6.20) M/mm3 Hgb 13.1 L (14.0-18.0) g/dL Hct 38.7 L (42.0-52.0) % MCV 90.2 (80-100) fl MCH 30.5 (26-34) pg MCHC 33.9 (32-36) g/dl RDW 13.1 (11.5-14.5) % Plt Count 219 (150-375) k/mm3 MPV 10.6 H (7.4-10.4) fl Immature Gran % (Auto) 0.4 (0-0.5) % Neut % (Auto) 73.8 H (45.5-73.1) % Lymph % (Auto) 15.4 L (18.3-44.2) % [place] % (Auto) 9.3 H (2.6-8.5) % Eos % (Auto) 0.8 (0-4.4) % Baso % (Auto) 0.3 (0.2-1.2) % Lymph # (Auto) 1.70 (0.9-3.2) K/mm3 [place] # (Auto) 1.0 H (0.1-0.6) K/mm3 Eos # (Auto) 0.1 (0-0.3) K/mm3 Baso # (Auto) 0.0 (0.0-0.1) K/mm3 Abs Immat Gran (auto) 0.04 H (0.00-0.031) K/mm3 Absolute Neuts (auto) 8.1 H (1.3-6.7) K/mm3 Absolute Nucleated RBC 0.000 (0.0-0.012) K/mm3 Nucleated RBC % 0.0 (0.0-0.2) % PT 14.1 (11.1-14.7) Seconds INR 1.1 APTT 33.0 (22.3-36.8) Seconds Sodium 134 L (137-145) mmol/L Potassium 4.3 (3.4-5.0) mmol/L Chloride 101 (98-107) mmol/L Carbon Dioxide 18 L (22-30) mmol/L Anion Gap 15 H (4-12) mmol/L BUN 19 (9-20) mg/dL Creatinine 1.22 (0.7-1.3) mg/dL Estim Creat Clear Calc 53 ml/min Estimated GFR 59 (59 - ) Glucose 126 H (65-110) mg/dL Calcium 8.9 (8.4-10.2) mg/dL Magnesium 1.7 (1.6-2.3) mg/dL Total Bilirubin 0.5 (0.2-1.3) mg/dL AST 27 (17-59) U/L ALT 21 (6-50) U/L Alkaline Phosphatase 74 (38-126) U/L Total Protein 7.0 (6.3-8.2) g/dL Albumin 4.3 (3.5-5.1) g/dL Urine Color Red H (Yellow) Urine Appearance Turbid H (Clear) Urine pH 5.0 (5.0-9.0) Ur Specific [place] 1.011 (1.001-1.035) Urine Protein 3+ H (Negative) mg/dL Urine Glucose (UA) 2+ H (Negative) mg/dL Urine Ketones Negative (Negative) mg/dL Ur Blood (Man) 3+ H (Negative) Urine Nitrate Positive H (Negative) Urine Bilirubin 1+ H (Negative) Urine Urobilinogen 0.2 (<2.0) mg/dL Add Ur Microanalysis Reviewed Leukocyte Esterase Rfl 1+ H (Negative) SKYLAR/UL Urine RBC >100 H (0-2) /hpf Urine WBC 11-20 H (0-3) /hpf Ur Squamous Epith Cells Occasional (Few) /hpf Urine Bacteria None seen /hpf Urine Casts 3-5 Discharge Plan Discharge Clinical Impression: Hematuria Patient Disposition: Still a Patient Condition: Stable Patient Language: Sami Prescriptions: No Action ipratropium bromide 21 mcg (0.03 %) spray,non-aerosol 2 spray NASAL TID PRN (Reason: nasal drainage) Qty: 30 0RF Rx Instructions: administer into each nostril simvastatin 20 mg tablet 20 mg PO DAILY lisinopril 10 mg tablet 10 mg PO DAILY melatonin 1 mg tablet 2 mg PO QHS testosterone 1.62 % (40.5 mg/2.5 gram) gel in packet topical Rx Instructions: 3 PUMPS azelastine 137 mcg (0.1 %) spray,non-aerosol 137 mcg intranasal . q.h.s. Qty: 30 1RF Rx Instructions: administer into each nostril 1 or 2 sprays q.h.s. at bedtime memantine 10 mg tablet 10 mg PO BID Qty: 180 3RF donepezil [Aricept] 10 mg tablet 10 mg PO QHS Qty: 90 5RF (DME) lancets [Onetouch Delica Safety Lancet] 30 gauge misc See Rx Instructions .Route Qty: 200 3RF Rx Instructions: As directed (DME) blood-glucose meter [OneTouch Verio Flex meter] Misc See Rx Instructions .Route Qty: 1 3RF Rx Instructions: As directed (DME) OneTouch Ultra Test Strip See Rx Instructions .ROUTE .MEDSUPPLY Qty: 100 0RF Rx Instructions: Check glucose 1-2 times a day mecobalamin (vitamin B12) 1,000 mcg tablet,chewable 1,000 mcg PO DAILY Qty: 30 5RF metformin 1,000 mg tablet 1,000 mg PO BID Qty: 180 1RF insulin degludec [Tresiba FlexTouch U-200] 200 unit/mL (3 mL) insulin pen 20 unit subcut QAM Qty: 9 3RF (DME) pen needle, diabetic [BD Daniella 2nd Gen Pen Needle] 32 gauge x 5/32 needle See Rx Instructions .Route Qty: 100 2RF Rx Instructions: As directed to inject Tresiba Glyxambi 25-5 mg tablet 1 tablet PO DAILY Qty: 90 1RF Follow-up/Referrals: Antonio Peña MD [Primary Care Provider] - Time of Disposition: 05:05
--- NOTE | 2024-05-04 05:00 | PM.IMHP ---
H&P: HPI History of Present Illness Date/Time: 05/04/24 05:00 Chief Complaint: Difficulties urinating and blood in urine. Narrative: This is a 69-year-old male with history of kidney stones, dementia, hypertension, hyperlipidemia, type 2 diabetes mellitus, and obstructive sleep apnea who presented to the emergency department via private vehicle with complaints of difficulties urinating and blood in the urine. The patient provides the following history. He reports intermittent hematuria for a few weeks for which he has seen Urology with plans for upcoming cystoscopy. He is now having difficulties emptying his bladder and he has been passing blood clots. He denies fever, chills, sweats, chest pain, shortness of breath, nausea, vomiting, diarrhea, back pain, and abdominal pain. Weight has remained stable. He is not on anticoagulation. In the ED: Blood pressure was 163/98 on arrival, the remainder of his vital signs were stable. Labs are significant for WBC count of 11.0, hemoglobin 13.1, sodium 134, carbon dioxide 18, anion gap 15, glucose 126. Urinalysis was positive for 3+ protein, 2+ glucose, 3+ blood, nitrates, 1+ leukocyte esterase, greater than 100 RBC, and [address] of the abdomen and pelvis showed nonobstructing 2 mm left lower pole calculus, heterogeneous fluid within the bladder favored to reflect hemorrhagic blood products and asymmetric enlargement and hypoenhancement of the entirety of the left inter pole and lower pole kidney concerning for infiltrative process. Three way [place]oa catheter was inserted he has been started on CBI. He is being admitted in this setting for further treatment and urology consultation. Review of Systems Review of Systems: 12 systems were reviewed and are negative except for as per HPI. [facility] Past Medical History Medical History Hyperlipidemia Hypertension Type 2 diabetes mellitus Obstructive sleep apnea REM behavioral disorder Dementia of the Alzheimer's type Surgical History Surgical History History of cataract surgery Family History Family History Sibling Patient's sister is in good health Patient's brother is in good health Mother Family history of emphysema Father Family history of congestive heart failure Diabetes mellitus Cerebrovascular accident Heart disease Grandparent Diabetes mellitus Social History Social History Social History: Surrogate medical decision maker: Ivis Salguero, spouse Code status: Full code. Smoking status: Never smoker Second hand tobacco smoke exposure: No Alcohol intake: current Drinks per week: 1 Alcohol use details: every now and then Substance use: never Substance use type: does not use Do You Feel Safe in your Home?: Yes Lack of Transportation: No Lack of Food: Never True Current Housing: I Have Housing Concerned About Future Housing: No Difficulty Paying Gas/Electric Bills: No Difficulty Paying for Meds: No Currently Unemployed: No Education: Master's Degree or Higher Difficulty w/ Childcare or Family Care: No Spiritual care concerns: No Agree to blood products: Yes Meds Home Medications and Allergies Home Medications ?Medication ?Instructions ?Recorded ?Confirmed ?Type lisinopril 10 mg tablet 10 mg PO DAILY 04/29/21 05/04/24 History melatonin 1 mg tablet 2 mg PO QHS 04/29/21 05/04/24 History simvastatin 20 mg tablet 20 mg PO DAILY 04/29/21 05/04/24 History testosterone 1.62 % (40.5 mg/2.5 See Rx Instructions topical QHS 01/11/23 05/04/24 History gram) transdermal gel packet blood sugar diagnostic (OneTouch #100 ea 11/22/23 05/04/24 Rx Ultra Test strips) blood-glucose meter (OneTouch #1 ea 11/22/23 05/04/24 Rx Verio Flex Meter) lancets 30 gauge (Onetouch Delica #200 ea 11/22/23 05/04/24 Rx Safety Lancet) azelastine 137 mcg (0.1 %) nasal 137 mcg (0.137 mL) intranasal . 11/28/23 05/04/24 Rx spray q.h.s. chronic seasonal allergic rhinitis #30 mL metformin 1,000 mg tablet 1,000 mg PO BID #180 tabs 12/26/23 05/04/24 Rx insulin degludec 200 unit/mL (3 20 unit (0.1 mL) subcut QAM #9 mL 01/13/24 05/04/24 Rx mL) subcutaneous pen (Tresiba FlexTouch U-200 insulin) pen needle, diabetic 32 gauge x #100 ea 03/27/24 05/04/24 Rx 5/32 (BD Daniella 2nd Gen Pen Needle) empagliflozin 25 mg-linagliptin 5 1 tablet PO DAILY #90 tabs 04/02/24 05/04/24 Rx mg tablet (Glyxambi) donepezil 10 mg tablet (Aricept) 10 mg PO QHS #90 tabs 04/25/24 05/04/24 Rx memantine 10 mg tablet 10 mg PO BID #180 tabs 04/25/24 05/04/24 Rx ipratropium bromide 21 mcg (0.03 2 spray intranasal DAILY PRN nasal 05/04/24 05/04/24 History %) nasal spray drainage Allergies Allergy/AdvReac Type Severity Reaction Status Date / Time No Known Allergies Allergy Verified 05/04/24 02:19 Vital Signs Vital Signs - 24 hr 05/04/24 02:21 05/04/24 04:30 Temperature 97.5 F L Pulse Rate 72 68 Respiratory Rate 18 16 Blood Pressure 163/98 H 159/82 H Pulse Oximetry 98 97 Oxygen Delivery Room Air Exam Narrative: General: Well-developed, nontoxic-appearing male supine in bed in no acute distress. Weight: 94.5 kg. BMI: 29.9 P HEENT: PERRL, EOMI. Sclera anicteric. Oral mucosa moist. Neck: Supple. Respiratory: Lungs are clear to auscultation bilaterally. Cardiovascular: Regular rate and rhythm with S1-S2. Gastrointestinal: Abdomen is soft and nontender with positive bowel sounds. No guarding or rebound tenderness. Genitourinary: Currently on CBI. Skin: Warm and dry. Extremities: No cyanosis, clubbing, or significant edema. Radial and pedal pulses intact. Neurological: Alert. Cranial nerves 2-12 are grossly intact. No gross focal deficits to casual conversation. Psychiatric: Pleasant and cooperative. Seems to suffer from short-term memory loss. H&P: Results Labs Labs: Short CBC 05/04/24 Range/Units 03:52 WBC 11.0 H (4.5-10.0) K/mm3 Hgb 13.1 L (14.0-18.0) g/dL Hct 38.7 L (42.0-52.0) % Plt Count 219 (150-375) k/mm3 [facility] 05/04/24 03:52 Sodium 134 L Potassium 4.3 Chloride 101 Carbon Dioxide 18 L BUN 19 Creatinine 1.22 Glucose 126 H Calcium 8.9 Liver Function 05/04/24 Range/Units 03:52 Total Bilirubin 0.5 (0.2-1.3) mg/dL AST 27 (17-59) U/L ALT 21 (6-50) U/L Alkaline Phosphatase 74 (38-126) U/L Albumin 4.3 (3.5-5.1) g/dL Urine 05/04/24 Range/Units 03:52 Urine Color Red H (Yellow) Urine Appearance Turbid H (Clear) Urine pH 5.0 (5.0-9.0) Ur Specific [place] 1.011 (1.001-1.035) Urine Protein 3+ H (Negative) mg/dL Urine Glucose (UA) 2+ H (Negative) mg/dL Impressions Abdomen/Pelvis CT 05/04/24 06:30 IMPRESSION: 1. 7.4 cm enhancing mass in left kidney, consistent with renal cell carcinoma. 2. Distended bladder with mild bilateral hydronephrosis and hydroureter. Heterogeneous attenuation of material in the bladder, consistent with hematoma. Pelvis Ultrasound 05/04/24 13:17 IMPRESSION: 1. Hematoma in the bladder. Imaging CT scan - abdomen: Radiologist's impression: 1. Nonobstructing 2 mm left lower pole calculus 2. Heterogeneous fluid within the bladder favored to reflect hemorrhagic blood products. 3. Asymmetric enlargement and hypoenhancement of the entirety of the left inter pole and lower pole kidney concerning for infiltrative process. Assessment and Plan Assessment and plan (1) Hematuria: Code(s): R31.9 - Hematuria, unspecified Status: Acute (2) Abnormal finding on diagnostic imaging of kidney: Code(s): R93.429 - Abnormal radiologic findings on diagnostic imaging of unspecified kidney Status: Acute (3) Left nephrolithiasis: Code(s): N20.0 - Calculus of kidney Status: Acute (4) Hypertension: Code(s): I10 - Essential (primary) hypertension Status: Acute (5) Type 2 diabetes mellitus: Code(s): E11.9 - Type 2 diabetes mellitus without complications Status: Acute (6) Obstructive sleep apnea: Code(s): G47.33 - Obstructive sleep apnea (adult) (pediatric) Status: Acute (7) Mild dementia: Code(s): F03.A0 - Unspecified dementia, mild, without behavioral disturbance, psychotic disturbance, mood disturbance, and anxiety Status: Acute Plan The patient presented to the emergency department for evaluation of difficulties urinating blood in the urine as detailed in HPI. Labs, imaging, EKG, and all reports were personally reviewed. Three way [place] catheter was inserted and he has been started on CBI. He will be NPO for possible cystoscopy later on today. Left kidney stone does not seem to be causing issues at this time. Eventually he will need an MRI to evaluate the left kidney due to concerns for possible malignancy. Continue empiric ceftriaxone, pending urine cultures. Blood pressures have been running a bit high and will be monitored. CPAP will be provided for the patient to use while hospitalized. Initiate sliding scale insulin, Accu-Cheks, and hypoglycemic protocol. His home medications will be reviewed and resumed as appropriate. Findings and treatment plan were discussed with the patient. Questions were solicited and answered to satisfaction. The patient's medical management will be taken over by the hospitalist team in a.m. Quality VTE Prophylaxis VTE prophylaxis: mechanical ordered If No VTE Prophylaxis Answer both mechanical and pharmacologic: Reason no pharmacologic proph: medical contraindication (hematuria) Hospitalist MIPS Advance Care Plan I have confirmed that the patient's Advanced Care Plan is present, code status is documented, or surrogate decision maker is listed in patient medical record.: Yes Medication Reconciliation I have utilized all available resources to obtain, update and review the patients current medications (includes all prescriptions, OTC, herbals, cannabis, and nutritional supplements).: Yes
[2024-05-04] MEDS: MORPHINE SULFATE (*CRX) 4 MG/ML INJ 2 MG IV PUSH (05:52)
[2024-05-04 06:36] LABS: Glucose Point of Care 109 mg/dl (65-105)
[2024-05-04 07:57] LABS: Glucose Point of Care 97 mg/dl (65-105)
--- NOTE | 2024-05-04 09:54 | P.CONUR_ITS ---
Assessment and Plan Assessment and plan (1) Gross hematuria: Code(s): R31.0 - Gross hematuria Status: Acute Assessment and Plan: Urinated bladder free of clots. We will get follow-up ultrasound of his bladder. At this point I do not think he needs operative intervention in the form of clot evac. I did inform them if he has significant clot in the bladder or recurrent bleeding that may be a possibility. Continue CBI at a slow rate. Can be titrated towards clear. Follow labs (2) Renal mass, left: Code(s): N28.89 - Other specified disorders of kidney and ureter Status: Acute Assessment and Plan: Discussed the natural history of renal masses and treatment options. Discussed in his this almost certainly represents a renal cell carcinoma. Will ultimately require surgical intervention on his kidney. The this will not be done during this hospitalization. We will arrange as an outpatient (3) Erectile dysfunction: Code(s): N52.9 - Male erectile dysfunction, unspecified Status: Acute Assessment and Plan: Status post inflatable penile prosthesis (4) Hypogonadism: Status: Acute Assessment and Plan: Treated by Dr. Farris Urology Consult Note HPI Date Seen: 05/04/24 Requesting Physician: David Aranda MD Primary Care Provider: Antonio Peña MD Family Provider: Hospitalist Consult Narrative Narrative: Ruben Salguero Jr. is a 69 year old male who was seen in the office recently for gross hematuria. This is about 2 weeks ago. The blood in the urine resolved. A CT scan was ordered and a cystoscopy appointment was made. He went for his CT scan yesterday. He had clear urine at the time. He then redeveloped gross hematuria with clot retention which prompted evaluation emergency room. Ultimately his CT scan came back with a left renal mass. He was admitted to the hospital. His bladder was irrigated and CBI was instituted. His hematuria is much improved. I irrigated his bladder at the bedside with 1 L of saline. I got out some clots. CBI is now running clear. I discussed with him and his that he will undoubtedly require nephrectomy for this left renal mass. We will monitor his gross hematuria. I will get a repeat bladder ultrasound to see if his bladder is free of clots. He does complain of some bladder spasm secondary to catheter. Past urologic surgeries include inflatable penile prosthesis. Past urologic history also incised Review of Systems 2 Review of Systems: All systems reviewed & are unremarkable except as noted in HPI and below PMFSH Past Medical History Medical History Hyperlipidemia Hypertension Type 2 diabetes mellitus Obstructive sleep apnea REM behavioral disorder Dementia of the Alzheimer's type Surgical History Surgical History History of cataract surgery Family History Family History Sibling Patient's sister is in good health Patient's brother is in good health Mother Family history of emphysema Father Family history of congestive heart failure Diabetes mellitus Cerebrovascular accident Heart disease Grandparent Diabetes mellitus Social History Social History Social History: Surrogate medical decision maker: nolberto Mccord Code status: Full code. Smoking status: Never smoker Second hand tobacco smoke exposure: No Alcohol intake: current Drinks per week: 2 Alcohol use details: every now and then Substance use: never Substance use type: does not use Do You Feel Safe in your Home?: Yes Lack of Transportation: No Lack of Food: Never True Current Housing: I Have Housing Concerned About Future Housing: No Difficulty Paying Gas/Electric Bills: No Difficulty Paying for Meds: No Currently Unemployed: No Education: Master's Degree or Higher Difficulty w/ Childcare or Family Care: No Spiritual care concerns: No Agree to blood products: Yes Meds Home Medications and Allergies Home Medications ?Medication ?Instructions ?Recorded ?Confirmed ?Type lisinopril 10 mg tablet 10 mg PO DAILY 04/29/21 04/25/24 History melatonin 1 mg tablet 2 mg PO QHS 04/29/21 04/25/24 History simvastatin 20 mg tablet 20 mg PO DAILY 04/29/21 04/25/24 History mecobalamin (vitamin B12) 1,000 1,000 mcg PO DAILY #30 tabs 11/02/22 04/25/24 Rx mcg chewable tablet testosterone 1.62 % (40.5 mg/2.5 topical 01/11/23 04/25/24 History gram) transdermal gel packet ipratropium bromide 21 mcg (0.03 2 spray intranasal TID PRN nasal 09/24/23 04/25/24 Rx %) nasal spray drainage #30 mL blood sugar diagnostic (OneTouch #100 ea 11/22/23 04/25/24 Rx Ultra Test strips) blood-glucose meter (OneTouch #1 ea 11/22/23 04/25/24 Rx Verio Flex Meter) lancets 30 gauge (Onetouch Delica #200 ea 11/22/23 04/25/24 Rx Safety Lancet) azelastine 137 mcg (0.1 %) nasal 137 mcg (0.137 mL) intranasal . 11/28/23 04/25/24 Rx spray q.h.s. chronic seasonal allergic rhinitis #30 mL metformin 1,000 mg tablet 1,000 mg PO BID #180 tabs 12/26/23 04/25/24 Rx insulin degludec 200 unit/mL (3 20 unit (0.1 mL) subcut QAM #9 mL 01/13/24 04/25/24 Rx mL) subcutaneous pen (Loaded Pocketsiba FlexTouch U-200 insulin) pen needle, diabetic 32 gauge x #100 ea 03/27/24 04/25/24 Rx 5/32 (BD Daniella 2nd Gen Pen Needle) empagliflozin 25 mg-linagliptin 5 1 tablet PO DAILY #90 tabs 04/02/24 04/25/24 Rx mg tablet (Glyxambi) donepezil 10 mg tablet (Aricept) 10 mg PO QHS #90 tabs 04/25/24 04/25/24 Rx memantine 10 mg tablet 10 mg PO BID #180 tabs 04/25/24 04/25/24 Rx Allergies Allergy/AdvReac Type Severity Reaction Status Date / Time No Known Allergies Allergy Verified 05/04/24 02:19 Vital Signs Vital Signs - 24 hr 05/04/24 02:21 05/04/24 04:30 05/04/24 05:01 Temperature 97.5 F L Pulse Rate 72 68 72 Respiratory Rate 18 16 18 Blood Pressure 163/98 H 159/82 H 180/84 H Pulse Oximetry 98 97 98 Oxygen Delivery Room Air 05/04/24 06:00 05/04/24 06:14 05/04/24 06:15 Temperature Pulse Rate 74 Respiratory Rate 15 Blood Pressure 176/79 H Pulse Oximetry 98 99 99 Oxygen Delivery 05/04/24 06:30 05/04/24 06:45 05/04/24 07:01 Temperature Pulse Rate 88 70 Respiratory Rate 16 15 Blood Pressure 168/79 H 173/78 H Pulse Oximetry 99 100 96 Oxygen Delivery Exam 2 Const: General: cooperative and healthy appearing Nutritional Appearance: a verage body habitus and well nourished Orientation/consciousness: patient oriented x3 Limitations: no limitations HENMT: Head: normal to inspection Eyes: General: appearance normal, both eyes and all related structures Neck: Neck: normal visual inspection and full ROM Chest: Chest palpation & inspection: normal inspection of the chest Resp: Effort & Inspection: normal respiratory effort, able to speak in complete sentences and no grunting GI: Inspection: normal to inspection Urinary Catheter: Urinary Catheter: patent and draining and urine pink Back/Spine/Pelvis: Other: Irrigated free of clots Skin: General skin exam: normal color and no rashes or lesions noted Neuro: General: patient oriented x3 and moves all extremities Extrem: General: normal to inspection Psych: Appearance: grossly normal Results Labs 05/04/24 03:52 05/04/24 03:52 Labs: Short CBC 05/04/24 Range/Units 03:52 WBC 11.0 H (4.5-10.0) K/mm3 Hgb 13.1 L (14.0-18.0) g/dL Hct 38.7 L (42.0-52.0) % Plt Count 219 (150-375) k/mm3 BMP 05/04/24 03:52 Sodium 134 L Potassium 4.3 Chloride 101 Carbon Dioxide 18 L BUN 19 Creatinine 1.22 Glucose 126 H Calcium 8.9 Liver Function 05/04/24 Range/Units 03:52 Total Bilirubin 0.5 (0.2-1.3) mg/dL AST 27 (17-59) U/L ALT 21 (6-50) U/L Alkaline Phosphatase 74 (38-126) U/L Albumin 4.3 (3.5-5.1) g/dL Urine 05/04/24 Range/Units 03:52 Urine Color Red H (Yellow) Urine Appearance Turbid H (Clear) Urine pH 5.0 (5.0-9.0) Ur Specific [place] 1.011 (1.001-1.035) Urine Protein 3+ H (Negative) mg/dL Urine Glucose (UA) 2+ H (Negative) mg/dL Imaging My impression: CT scan reviewed by myself. Left renal mass. Clot within the urinary bladder.
--- NOTE | 2024-05-04 10:22 | ADMGEN ---
This patient, Ruben Salguero Jr., was admitted to [facility] Surg Room 330-01. Patient/family oriented to hospital policies and general routines including ID bracelet, bed and alarms, visiting hours, pain management, procedures, bathroom and other care routines, personal items, smoking policy, room service/diet, and visiting hours. Information on how to activate the Rapid Response Team has been discussed. Patient/Family are encouraged to report perceived risks to care and to ask questions if they do not understand what they are told or what they should do.
[2024-05-04 11:22] LABS: Glucose Point of Care 116 mg/dl (65-105)
[2024-05-04 11:24] LABS: Hematocrit 39.3 % (42.0-52.0); Hemoglobin 13.5 g/dL (14.0-18.0)
[2024-05-04] MEDS: lisinopriL 10 MG TABLET PO (11:30)
[2024-05-04] MEDS: SIMVASTATIN 20 MG TABLET PO (12:07)
[2024-05-04] MEDS: MEMANTINE 10 MG TABLET PO ×2 (12:07→17:51)
[2024-05-04] MEDS: EMPAGLIFLOZIN 25 MG TABLET BY MOUTH (12:07)
[2024-05-04] MEDS: SITagliptin PHOSPHATE 100 MG TABLET BY MOUTH (12:07)
[2024-05-04] MEDS: oxyBUTYnin CHLORIDE 5 MG TABLET PO ×3 (12:07→23:37)
[2024-05-04] MEDS: MORPHINE SULFATE (*CRX) 2 MG/ML INJ IV PUSH ×2 (12:08→18:57)
[2024-05-04 16:29] LABS: Glucose Point of Care 130 mg/dl (65-105)
[2024-05-04 17:16] LABS: Hematocrit 38.5 % (42.0-52.0); Hemoglobin 13.1 g/dL (14.0-18.0)
--- NOTE | 2024-05-04 17:18 | PM.IMPN ---
Progress Note: A&P Assessment and Plan (1) Hematuria: Code(s): R31.9 - Hematuria, unspecified Status: Acute (2) Abnormal finding on diagnostic imaging of kidney: Code(s): R93.429 - Abnormal radiologic findings on diagnostic imaging of unspecified kidney Status: Acute (3) Left nephrolithiasis: Code(s): N20.0 - Calculus of kidney Status: Acute (4) Hypertension: Code(s): I10 - Essential (primary) hypertension Status: Acute (5) Type 2 diabetes mellitus: Code(s): E11.9 - Type 2 diabetes mellitus without complications Status: Acute (6) Obstructive sleep apnea: Code(s): G47.33 - Obstructive sleep apnea (adult) (pediatric) Status: Acute (7) Mild dementia: Code(s): F03.A0 - Unspecified dementia, mild, without behavioral disturbance, psychotic disturbance, mood disturbance, and anxiety Status: Acute Plan patient with hematuria, suspect most likely 2/2 renal mass, urologist irrigated the bladder, CBI is working there is still some blood coming out, patient stats feels better compare when he arrived, patient will patient will need to remove the renal mass later when clinically stable, patient has a diabetes will continue home regimen and monitor with sliding scale. Patient is present in the room Subjective Date/time seen: 05/04/24 17:18 Interval history: H&P-Narrative: This is a 69-year-old male with history of kidney stones, dementia, hypertension, hyperlipidemia, type 2 diabetes mellitus, and obstructive sleep apnea who presented to the emergency department via private vehicle with complaints of difficulties urinating and blood in the urine. The patient provides the following history. He reports intermittent hematuria for a few weeks for which he has seen Urology with plans for upcoming cystoscopy. He is now having difficulties emptying his bladder and has noticed blood in the urine. In the ED: Blood pressure was 163/98 on arrival, the remainder of his vital signs were stable. Labs are significant for WBC count of 11.0, hemoglobin 13.1, sodium 134, carbon dioxide 18, anion gap 15, glucose 126. Urinalysis was positive for 3+ protein, 2+ glucose, 3+ blood, nitrates, 1+ leukocyte esterase, greater than 100 RBC, and [address] of the abdomen and pelvis showed nonobstructing 2 mm left lower pole calculus, heterogeneous fluid within the bladder favored to reflect hemorrhagic blood products and asymmetric enlargement and hypoenhancement of the entirety of the left inter pole and lower pole kidney concerning for infiltrative process. Three way Gamboa catheter was inserted he has been started on CBI. He is being admitted in this setting for further treatment and urology consultation. patient with hematuria, suspect most likely 2/2 renal mass, urologist irrigated the bladder, CBI is working there is still some blood coming out, patient stats feels better compare when he arrived, patient will patient will need to remove the renal mass later when clinically stable, patient has a diabetes will continue home regimen and monitor with sliding scale. Patient is present in the room Review of Systems Review of Systems: 12 systems were reviewed and are negative except for as per HPI. Exam Narrative: Patient is comfortable, NAD HEENT: eyes are clear and none icteric LUNGS:CTA HEART: RR S1S2 ABD: BS+, Soft and nontender Lower extremities: no edema SKIN: nonjaundiced Neuro: grossly intact. Objective Data Vital Signs Vital Signs: Vital Signs - 24 hr 05/04/24 02:21 05/04/24 04:30 05/04/24 05:01 Temperature 36.4 C L Pulse Rate 72 68 72 Respiratory Rate 18 16 18 Blood Pressure 163/98 H 159/82 H 180/84 H Pulse Oximetry 98 97 98 Oxygen Delivery Room Air 05/04/24 06:00 05/04/24 06:14 05/04/24 06:15 Temperature Pulse Rate 74 Respiratory Rate 15 Blood Pressure 176/79 H Pulse Oximetry 98 99 99 Oxygen Delivery 05/04/24 06:30 05/04/24 06:45 05/04/24 07:01 Temperature Pulse Rate 88 70 Respiratory Rate 16 15 Blood Pressure 168/79 H 173/78 H Pulse Oximetry 99 100 96 Oxygen Delivery 05/04/24 14:00 Temperature 36.9 C Pulse Rate 68 Respiratory Rate 18 Blood Pressure 132/68 Pulse Oximetry 98 Oxygen Delivery Intake/Output Intake/Output: Intake & Output 05/01/24 05/02/24 05/03/24 05/04/24 23:59 23:59 23:59 23:59 Intake Total 290 Balance 290 Meds/Results Medications: Active Medications Generic Name Dose Route Start Last Admin Trade Name Freq PRN Reason Stop Dose Admin Acetaminophen 650 mg 05/04/24 05:11 Acetaminophen 325 Mg Tablet PO Q6H PRN Mild Pain (1-3) or Fever Azelastine HCl 2 spray 05/04/24 21:00 Azelastine Hcl Nasal 0.1% 137 Mcg/Spr 30 Ml Btl NASAL HS [facility] Dextrose 12.5 gm 05/04/24 05:11 Dextrose 50% 25 Gm/50 Ml Syringe IV PUSH PRN PRN Hypoglycemia Protocol Donepezil HCl 10 mg 05/04/24 21:00 Donepezil Hcl 10 Mg Tablet PO QHS [facility] Empagliflozin 25 mg 05/04/24 11:00 05/04/24 12:07 Empagliflozin 25 Mg Tablet BY MOUTH 25 mg DAILY [facility] Administration Glucagon 1 mg 05/04/24 05:11 Glucagon For Inj 1 Mg Vial IM PRN PRN Hypoglycemia Protocol Glucose 15 gm 05/04/24 05:11 Glucose Oral Gel 15 Gm Of Glucse In 37.5 Gm Tube PO PRN PRN Hypoglycemia Protocol Ceftriaxone Sodium 1 gm in 50 mls @ 100 mls/hr 05/05/24 05:00 Rocephin 1 Gm/Ns 50 Ml IVPB Q24H [facility] Dextrose 1,000 mls @ 100 mls/hr 05/04/24 05:11 Dextrose 5% 1,000 Ml IVPB PRN PRN Hypoglycemia Protocol Insulin Aspart 3 - 6 units 05/04/24 08:00 05/04/24 14:16 Insulin Aspart (*Bkc) 100 Units/Ml SUB-Q Not Given TIDWM [facility] Protocol Insulin Aspart 1 - 3 units 05/04/24 21:00 Insulin Aspart (*Bkc) 100 Units/Ml SUB-Q HS [facility] Protocol Insulin Glargine 20 units 05/05/24 09:00 Insulin Glargine (*Bkc) 100 Units/Ml SUB-Q QAM [facility] Ipratropium [place] 2 spray 05/04/24 10:44 Ipratropium Nasal [place] 0.03% 15 Ml Bottle NASAL DAILY PRN nasal drainage Lisinopril 10 mg 05/04/24 10:55 05/04/24 11:30 Lisinopril 10 Mg Tablet PO 10 mg DAILY [facility] Administration Melatonin 3 mg 05/04/24 21:00 Melatonin 3 Mg Tablet PO HS [facility] Memantine 10 mg 05/04/24 10:55 05/04/24 12:07 Memantine 10 Mg Tablet PO 10 mg BID [facility] Administration Metformin HCl 1,000 mg 05/04/24 17:00 Metformin Hcl 500 Mg Tablet PO BID [facility] Miscellaneous Information 0 each 05/04/24 00:01 Testosterone Topical Is Nonformulary - Can Patient Use From Home? Hold While Here? XX 06/03/24 00:00 CLARIFY [facility] Morphine Sulfate 2 mg 05/04/24 11:59 05/04/24 12:08 Morphine Sulfate (*Crx) 2 Mg/Ml Inj IV PUSH 2 mg Q6HR PRN Administration Pain Rated 7-10 Non-Formulary Medication 0 mg 05/04/24 21:00 Testosterone TOPICAL 06/03/24 20:59 QHS [facility] Oxybutynin Chloride 5 mg 05/04/24 11:54 05/04/24 12:07 Oxybutynin Chloride 5 Mg Tablet PO 5 mg TID PRN Administration Abdominal Cramping Simvastatin 20 mg 05/04/24 10:55 05/04/24 12:07 Simvastatin 20 Mg Tablet PO 20 mg DAILY [facility] Administration Sitagliptin Phosphate 100 mg 05/04/24 11:00 05/04/24 12:07 Sitagliptin Phosphate 100 Mg Tablet BY MOUTH 100 mg DAILY [facility] Administration Radiology Results: ITS Impressions Abdomen/Pelvis CT 05/04/24 06:30 IMPRESSION: 1. 7.4 cm enhancing mass in left kidney, consistent with renal cell carcinoma. 2. Distended bladder with mild bilateral hydronephrosis and hydroureter. Heterogeneous attenuation of material in the bladder, consistent with hematoma. Pelvis Ultrasound 05/04/24 13:17 IMPRESSION: 1. Hematoma in the bladder. Labs Labs: Laboratory Results - last 24 hr 05/04/24 05/04/24 05/04/24 03:52 06:31 07:55 WBC 11.0 H RBC 4.29 L Hgb 13.1 L Hct 38.7 L MCV 90.2 MCH 30.5 MCHC 33.9 RDW 13.1 Plt Count 219 MPV 10.6 H Immature Gran % (Auto) 0.4 Neut % (Auto) 73.8 H Lymph % (Auto) 15.4 L [place] % (Auto) 9.3 H Eos % (Auto) 0.8 Baso % (Auto) 0.3 Lymph # (Auto) 1.70 [place] # (Auto) 1.0 H Eos # (Auto) 0.1 Baso # (Auto) 0.0 Abs Immat Gran (auto) 0.04 H Absolute Neuts (auto) 8.1 H Absolute Nucleated RBC 0.000 Nucleated RBC % 0.0 PT 14.1 INR 1.1 APTT 33.0 Sodium 134 L Potassium 4.3 Chloride 101 Carbon Dioxide 18 L Anion Gap 15 H BUN 19 Creatinine 1.22 Estim Creat Clear Calc 53 Estimated GFR 59 Glucose 126 H POC Capillary Glucose 109 H 97 Calcium 8.9 Magnesium 1.7 Total Bilirubin 0.5 AST 27 ALT 21 Alkaline Phosphatase 74 Total Protein 7.0 Albumin 4.3 Urine Color Red H Urine Appearance Turbid H Urine pH 5.0 Ur Specific [place] 1.011 Urine Protein 3+ H Urine Glucose (UA) 2+ H Urine Ketones Negative Ur Blood (Man) 3+ H Urine Nitrate Positive H Urine Bilirubin 1+ H Urine Urobilinogen 0.2 Add Ur Microanalysis Reviewed Leukocyte Esterase Rfl 1+ H Urine RBC >100 H Urine WBC 11-20 H Ur Squamous Epith Cells Occasional Urine Bacteria None seen Urine Casts 3-5 05/04/24 05/04/24 05/04/24 11:14 11:17 16:22 WBC RBC Hgb 13.5 L Hct 39.3 L MCV MCH MCHC RDW Plt Count MPV Immature Gran % (Auto) Neut % (Auto) Lymph % (Auto) [place] % (Auto) Eos % (Auto) Baso % (Auto) Lymph # (Auto) [place] # (Auto) Eos # (Auto) Baso # (Auto) Abs Immat Gran (auto) Absolute Neuts (auto) Absolute Nucleated RBC Nucleated RBC % PT INR APTT Sodium Potassium Chloride Carbon Dioxide Anion Gap BUN Creatinine Estim Creat Clear Calc Estimated GFR Glucose POC Capillary Glucose 116 H 130 H Calcium Magnesium Total Bilirubin AST ALT Alkaline Phosphatase Total Protein Albumin Urine Color Urine Appearance Urine pH Ur Specific [place] Urine Protein Urine Glucose (UA) Urine Ketones Ur Blood (Man) Urine Nitrate Urine Bilirubin Urine Urobilinogen Add Ur Microanalysis Leukocyte Esterase Rfl Urine RBC Urine WBC Ur Squamous Epith Cells Urine Bacteria Urine Casts 05/04/24 17:10 WBC RBC Hgb 13.1 L Hct 38.5 L MCV MCH MCHC RDW Plt Count MPV Immature Gran % (Auto) Neut % (Auto) Lymph % (Auto) [place] % (Auto) Eos % (Auto) Baso % (Auto) Lymph # (Auto) [place] # (Auto) Eos # (Auto) Baso # (Auto) Abs Immat Gran (auto) Absolute Neuts (auto) Absolute Nucleated RBC Nucleated RBC % PT INR APTT Sodium Potassium Chloride Carbon Dioxide Anion Gap BUN Creatinine Estim Creat Clear Calc Estimated GFR Glucose POC Capillary Glucose Calcium Magnesium Total Bilirubin AST ALT Alkaline Phosphatase Total Protein Albumin Urine Color Urine Appearance Urine pH Ur Specific [place] Urine Protein Urine Glucose (UA) Urine Ketones Ur Blood (Man) Urine Nitrate Urine Bilirubin Urine Urobilinogen Add Ur Microanalysis Leukocyte Esterase Rfl Urine RBC Urine WBC Ur Squamous Epith Cells Urine Bacteria Urine Casts Quality VTE Prophylaxis VTE prophylaxis: mechanical ordered
[2024-05-04] MEDS: metFORMIN HCL 500 MG TABLET 1000 MG PO (17:51)
--- NOTE | 2024-05-04 17:58 | PCRCNOTE ---
PT. REFUSING TO WEAR CPAP DOES NOT WANT IN ROOM.
[2024-05-04] MEDS: AZELASTINE HCL NASAL 0.1% 137 MCG/SPR 30 ML BTL 2 SPRAY NASAL (20:20)
[2024-05-04] MEDS: MELATONIN 3 MG TABLET PO (20:21)
[2024-05-04] MEDS: ACETAMINOPHEN 325 MG TABLET 650 MG PO (20:21)
[2024-05-04] MEDS: DONEPEZIL HCL 10 MG TABLET PO (20:21)
[2024-05-04 21:28] LABS: Glucose Point of Care 223 mg/dl (65-105)
[2024-05-04 23:26] LABS: Glucose Point of Care 100 mg/dl (65-105)
[2024-05-04 23:47] LABS: Hematocrit 37.2 % (42.0-52.0); Hemoglobin 12.7 g/dL (14.0-18.0)
[2024-05-05 04:59] VITALS: BP 113/64; PULSE 60; RESP 16; TEMP 36.3; O2SAT 98
--- NOTE | 2024-05-05 05:48 | PCRCNOTE ---
pt refused use of hospital unit
[2024-05-05 06:26] LABS: Hematocrit 38.6 % (42.0-52.0); Hemoglobin 12.7 g/dL (14.0-18.0); Mean Corpuscular HGB Conc 32.9 g/dl (32-36); Mean Platelet Volume 10.8 fl (7.4-10.4); Platelet Count Result 212 k/mm3 (150-375); Red Blood Count 4.24 M/mm3 (4.6-6.20); Red Cell Distribution Width 13.2 % (11.5-14.5); White Blood Count 8.8 K/mm3 (4.5-10.0)
[2024-05-05 06:40] LABS: Anion Gap 11 mmol/L (4-12); Blood Urea Nitrogen 18 mg/dL (9-20); Calcium 8.8 mg/dL (8.4-10.2); Carbon Dioxide 22 mmol/L (22-30); Chloride 103 mmol/L (98-107); Estimated CRCL calculation 48 ml/min; Estimated Glomerular Filt Rate 52; Glucose 114 mg/dL (65-110); Sodium 136 mmol/L (137-145)
--- NOTE | 2024-05-05 07:05 | P.PNUR_ITS ---
Progress Note: A&P Assessment and Plan (1) Gross hematuria: Code(s): R31.0 - Gross hematuria Status: Acute Assessment and Plan: * Unclear if due to renal mass, UTI, or other urologic etiology -- regardless, goal will be to get him out of clot retention * Continue Rocephin, follow up Urine Cultures, if negative no further antibiotics needed; if positive, would convert to PO option for total of 7d treatment including his IV Abx given here * Continue CBI today, but plan to clamp it at 06:00 tomorrow -- if able to wean off of CBI, would do a void trial prior to d/c once urine culture is back * Patient being set up for outpatient urologic follow up (2) Renal mass, left: Code(s): N28.89 - Other specified disorders of kidney and ureter Status: Acute Assessment and Plan: Will eventually need outpatient follow up to discuss Left Nephrectomy likely with Drs. Boyd or Kurt Subjective Subjective Date/Time Seen: 05/05/24 07:05 Interval history: GISSEL overnight CBI running, urine clearing up, light pink on very slow CBI rate; did not need manual irrigation overnight Patient and his have many questions today, focused on criteria for discharge, concern about recurrent bleeding, and outpatient establishment with Urology for further Hematuria and Renal Mass workup Urine Cultures pending, on Rocephin Review of Systems Review of Systems: All systems reviewed & are unremarkable except as noted in HPI and below Exam Narrative: No acute distress Gamboa draining light pink urine on slow rate CBI Objective Data Vital Signs Vital Signs: Vital Signs - 24 hr 05/04/24 14:00 05/04/24 20:07 05/04/24 20:20 Temperature 36.9 C 36.9 C Pulse Rate 68 72 72 Respiratory Rate 18 18 18 Blood Pressure 132/68 128/70 Pulse Oximetry 98 98 98 Oxygen Delivery Room Air 05/04/24 23:10 05/05/24 04:59 Temperature 36.3 C L Pulse Rate 60 Respiratory Rate 16 Blood Pressure 113/64 Pulse Oximetry 98 98 Oxygen Delivery Room Air Intake/Output Intake/Output: Intake & Output 05/02/24 05/03/24 05/04/24 05/05/24 23:59 23:59 23:59 23:59 Intake Total 530 450 Output Total 1600 Balance -1070 450 Meds/Results Medications: Active Medications Generic Name Dose Route Start Last Admin Trade Name Freq PRN Reason Stop Dose Admin Acetaminophen 650 mg 05/04/24 05:11 05/04/24 20:21 Acetaminophen 325 Mg Tablet PO 650 mg Q6H PRN Administration Mild Pain (1-3) or Fever Azelastine HCl 2 spray 05/04/24 21:00 05/04/24 20:20 Azelastine Hcl Nasal 0.1% 137 Mcg/Spr 30 Ml Btl NASAL 2 spray HS [facility] Administration Dextrose 12.5 gm 05/04/24 05:11 Dextrose 50% 25 Gm/50 Ml Syringe IV PUSH PRN PRN Hypoglycemia Protocol Donepezil HCl 10 mg 05/04/24 21:00 05/04/24 20:21 Donepezil Hcl 10 Mg Tablet PO 10 mg QHS [facility] Administration Empagliflozin 25 mg 05/04/24 11:00 05/04/24 12:07 Empagliflozin 25 Mg Tablet BY MOUTH 25 mg DAILY [facility] Administration Glucagon 1 mg 05/04/24 05:11 Glucagon For Inj 1 Mg Vial IM PRN PRN Hypoglycemia Protocol Glucose 15 gm 05/04/24 05:11 Glucose Oral Gel 15 Gm Of Glucse In 37.5 Gm Tube PO PRN PRN Hypoglycemia Protocol Ceftriaxone Sodium 1 gm in 50 mls @ 100 mls/hr 05/05/24 05:00 05/05/24 04:21 Rocephin 1 Gm/Ns 50 Ml IVPB 100 mls/hr Q24H [facility] Administration Dextrose 1,000 mls @ 100 mls/hr 05/04/24 05:11 Dextrose 5% 1,000 Ml IVPB PRN PRN Hypoglycemia Protocol Insulin Aspart 1 - 3 units 05/04/24 21:00 05/04/24 21:34 Insulin Aspart (*Bkc) 100 Units/Ml SUB-Q Not Given HS [facility] Protocol Insulin Aspart 2 - 5 units 05/05/24 08:00 Insulin Aspart (*Bkc) 100 Units/Ml SUB-Q TIDWM [facility] Protocol Insulin Glargine 20 units 05/05/24 09:00 Insulin Glargine (*Bkc) 100 Units/Ml SUB-Q QAM [facility] Ipratropium [place] 2 spray 05/04/24 10:44 Ipratropium Nasal [place] 0.03% 15 Ml Bottle NASAL DAILY PRN nasal drainage Lisinopril 10 mg 05/04/24 10:55 05/04/24 11:30 Lisinopril 10 Mg Tablet PO 10 mg DAILY [facility] Administration Melatonin 3 mg 05/04/24 21:00 05/04/24 20:21 Melatonin 3 Mg Tablet PO 3 mg HS [facility] Administration Memantine 10 mg 05/04/24 10:55 05/04/24 17:51 Memantine 10 Mg Tablet PO 10 mg BID [facility] Administration Metformin HCl 1,000 mg 05/04/24 17:00 05/04/24 17:51 Metformin Hcl 500 Mg Tablet PO 1,000 mg BID [facility] Administration Miscellaneous Information 0 each 05/04/24 00:01 Testosterone Topical Is Nonformulary - Can Patient Use From Home? Hold While Here? XX 06/03/24 00:00 CLARIFY [facility] Morphine Sulfate 2 mg 05/04/24 11:59 05/04/24 18:57 Morphine Sulfate (*Crx) 2 Mg/Ml Inj IV PUSH 2 mg Q6HR PRN Administration Pain Rated 7-10 Non-Formulary Medication 0 mg 05/04/24 21:00 Testosterone TOPICAL 06/03/24 20:59 QHS [facility] Oxybutynin Chloride 5 mg 05/04/24 11:54 05/04/24 23:37 Oxybutynin Chloride 5 Mg Tablet PO 5 mg TID PRN Administration Abdominal Cramping Simvastatin 20 mg 05/04/24 10:55 05/04/24 12:07 Simvastatin 20 Mg Tablet PO 20 mg DAILY [facility] Administration Sitagliptin Phosphate 100 mg 05/04/24 11:00 05/04/24 12:07 Sitagliptin Phosphate 100 Mg Tablet BY MOUTH 100 mg DAILY [facility] Administration Radiology Results: ITS Impressions Abdomen/Pelvis CT 05/04/24 06:30 IMPRESSION: 1. 7.4 cm enhancing mass in left kidney, consistent with renal cell carcinoma. 2. Distended bladder with mild bilateral hydronephrosis and hydroureter. Heterogeneous attenuation of material in the bladder, consistent with hematoma. Pelvis Ultrasound 05/04/24 13:17 IMPRESSION: 1. Hematoma in the bladder. Labs Labs: Laboratory Results - last 24 hr 05/04/24 05/04/24 05/04/24 07:55 11:14 11:17 WBC RBC Hgb 13.5 L Hct 39.3 L MCV MCH MCHC RDW Plt Count MPV Sodium Potassium Chloride Carbon Dioxide Anion Gap BUN Creatinine Estim Creat Clear Calc Estimated GFR Glucose POC Capillary Glucose 97 116 H Calcium Magnesium 05/04/24 05/04/24 05/04/24 16:22 17:10 20:01 WBC RBC Hgb 13.1 L Hct 38.5 L MCV MCH MCHC RDW Plt Count MPV Sodium Potassium Chloride Carbon Dioxide Anion Gap BUN Creatinine Estim Creat Clear Calc Estimated GFR Glucose POC Capillary Glucose 130 H 223 H Calcium Magnesium 05/04/24 05/04/24 05/05/24 23:15 23:23 05:51 WBC 8.8 RBC 4.24 L Hgb 12.7 L 12.7 L Hct 37.2 L 38.6 L MCV 91.0 MCH 30.0 MCHC 32.9 RDW 13.2 Plt Count 212 MPV 10.8 H Sodium 136 L Potassium 4.0 Chloride 103 Carbon Dioxide 22 Anion Gap 11 BUN 18 Creatinine 1.36 H Estim Creat Clear Calc 48 Estimated GFR 52 L Glucose 114 H POC Capillary Glucose 100 Calcium 8.8 Magnesium 2.0
[2024-05-05] MEDS: SITagliptin PHOSPHATE 100 MG TABLET BY MOUTH (08:13)
[2024-05-05] MEDS: SIMVASTATIN 20 MG TABLET PO (08:13)
[2024-05-05] MEDS: lisinopriL 10 MG TABLET PO (08:13)
[2024-05-05] MEDS: metFORMIN HCL 500 MG TABLET 1000 MG PO ×2 (08:13→17:28)
[2024-05-05] MEDS: EMPAGLIFLOZIN 25 MG TABLET BY MOUTH (08:13)
[2024-05-05] MEDS: MEMANTINE 10 MG TABLET PO ×2 (08:13→17:28)
[2024-05-05] MEDS: INSULIN GLARGINE (*BKC) 100 UNITS/ML 20 UNITS SUB-Q (08:14)
[2024-05-05 08:24] LABS: Glucose Point of Care 117 mg/dl (65-105)
[2024-05-05 11:47] LABS: Glucose Point of Care 87 mg/dl (65-105)
[2024-05-05] MEDS: ACETAMINOPHEN 325 MG TABLET 650 MG PO ×2 (12:11→20:20)
[2024-05-05 14:00] VITALS: BP 119/55; PULSE 63; RESP 18; TEMP 36.3; O2SAT 97
--- NOTE | 2024-05-05 14:30 | PM.IMPN ---
Progress Note: A&P Assessment and Plan (1) Hematuria: Code(s): R31.9 - Hematuria, unspecified Status: Acute (2) Abnormal finding on diagnostic imaging of kidney: Code(s): R93.429 - Abnormal radiologic findings on diagnostic imaging of unspecified kidney Status: Acute (3) Left nephrolithiasis: Code(s): N20.0 - Calculus of kidney Status: Acute (4) Hypertension: Code(s): I10 - Essential (primary) hypertension Status: Acute (5) Type 2 diabetes mellitus: Code(s): E11.9 - Type 2 diabetes mellitus without complications Status: Acute (6) Obstructive sleep apnea: Code(s): G47.33 - Obstructive sleep apnea (adult) (pediatric) Status: Acute (7) Mild dementia: Code(s): F03.A0 - Unspecified dementia, mild, without behavioral disturbance, psychotic disturbance, mood disturbance, and anxiety Status: Acute Plan The patient presented to the emergency department for evaluation of difficulties urinating blood in the urine as detailed in HPI. Labs, imaging, EKG, and all reports were personally reviewed. Three way [place] catheter was inserted and he has been started on CBI. He will be NPO for possible cystoscopy later on today. Left kidney stone does not seem to be causing issues at this time. Eventually he will need an MRI to evaluate the left kidney due to concerns for possible malignancy. Continue empiric ceftriaxone, pending urine cultures. Blood pressures have been running a bit high and will be monitored. CPAP will be provided for the patient to use while hospitalized. Initiate sliding scale insulin, Accu-Cheks, and hypoglycemic protocol. His home medications will be reviewed and resumed as appropriate. Findings and treatment plan were discussed with the patient. Questions were solicited and answered to satisfaction. The patient's medical management will be taken over by the hospitalist team in a.m. patient with hematuria, suspect most likely 2/2 renal mass, urologist irrigated the bladder, CBI is working there is still some blood coming out, patient stats feels better compare when he arrived, today patient was seen by his urologist, recommended to continue CBI and clamped it tomorrow at 6am and will monitor, urine culture no growth so far, patient will need to remove the renal mass later when clinically stable, patient has a diabetes will continue home regimen and monitor with sliding scale. Patient is present in the room Subjective Date/time seen: 05/05/24 14:30 Interval history: H&P-Narrative: This is a 69-year-old male with history of kidney stones, dementia, hypertension, hyperlipidemia, type 2 diabetes mellitus, and obstructive sleep apnea who presented to the emergency department via private vehicle with complaints of difficulties urinating and blood in the urine. The patient provides the following history. He reports intermittent hematuria for a few weeks for which he has seen Urology with plans for upcoming cystoscopy. He is now having difficulties emptying his bladder and has noticed blood in the urine. In the ED: Blood pressure was 163/98 on arrival, the remainder of his vital signs were stable. Labs are significant for WBC count of 11.0, hemoglobin 13.1, sodium 134, carbon dioxide 18, anion gap 15, glucose 126. Urinalysis was positive for 3+ protein, 2+ glucose, 3+ blood, nitrates, 1+ leukocyte esterase, greater than 100 RBC, and [address] of the abdomen and pelvis showed nonobstructing 2 mm left lower pole calculus, heterogeneous fluid within the bladder favored to reflect hemorrhagic blood products and asymmetric enlargement and hypoenhancement of the entirety of the left inter pole and lower pole kidney concerning for infiltrative process. Three way [place] catheter was inserted he has been started on CBI. He is being admitted in this setting for further treatment and urology consultation. patient with hematuria, suspect most likely 2/2 renal mass, urologist irrigated the bladder, CBI is working there is still some blood coming out, patient stats feels better compare when he arrived, today patient was seen by his urologist, recommended to continue CBI and clamped it tomorrow at 6am and will monitor, urine culture no growth so far, patient will need to remove the renal mass later when clinically stable, patient has a diabetes will continue home regimen and monitor with sliding scale. Patient is present in the room Review of Systems Review of Systems: 12 systems were reviewed and are negative except for as per HPI. Exam Narrative: General: Well-developed, nontoxic-appearing male supine in bed in no acute distress. Weight: 94.5 kg. BMI: 29.9 P HEENT: PERRL, EOMI. Sclera anicteric. Oral mucosa moist. Neck: Supple. Respiratory: Lungs are clear to auscultation bilaterally. Cardiovascular: Regular rate and rhythm with S1-S2. Gastrointestinal: Abdomen is soft and nontender with positive bowel sounds. No guarding or rebound tenderness. Genitourinary: Currently on CBI. Skin: Warm and dry. Extremities: No cyanosis, clubbing, or significant edema. Radial and pedal pulses intact. Neurological: Alert. Cranial nerves 2-12 are grossly intact. No gross focal deficits to casual conversation. Psychiatric: Pleasant and cooperative. Seems to suffer from short-term memory loss. Objective Data Vital Signs Vital Signs: Vital Signs - 24 hr 05/04/24 20:07 05/04/24 20:20 05/04/24 23:10 Temperature 36.9 C Pulse Rate 72 72 Respiratory Rate 18 18 Blood Pressure 128/70 Pulse Oximetry 98 98 98 Oxygen Delivery Room Air Room Air 05/05/24 04:59 05/05/24 08:10 Temperature 36.3 C L Pulse Rate 60 Respiratory Rate 16 Blood Pressure 113/64 Pulse Oximetry 98 Oxygen Delivery Room Air Intake/Output Intake/Output: Intake & Output 05/02/24 05/03/24 05/04/24 05/05/24 23:59 23:59 23:59 23:59 Intake Total 530 690 Output Total 1600 6640 Balance -1070 -5950 Meds/Results Medications: Active Medications Generic Name Dose Route Start Last Admin Trade Name Freq PRN Reason Stop Dose Admin Acetaminophen 650 mg 05/04/24 05:11 05/05/24 12:11 Acetaminophen 325 Mg Tablet PO 650 mg Q6H PRN Administration Mild Pain (1-3) or Fever Azelastine HCl 2 spray 05/04/24 21:00 05/04/24 20:20 Azelastine Hcl Nasal 0.1% 137 Mcg/Spr 30 Ml Btl NASAL 2 spray HS [facility] Administration Dextrose 12.5 gm 05/04/24 05:11 Dextrose 50% 25 Gm/50 Ml Syringe IV PUSH PRN PRN Hypoglycemia Protocol Donepezil HCl 10 mg 05/04/24 21:00 05/04/24 20:21 Donepezil Hcl 10 Mg Tablet PO 10 mg QHS [facility] Administration Empagliflozin 25 mg 05/04/24 11:00 05/05/24 08:13 Empagliflozin 25 Mg Tablet BY MOUTH 25 mg DAILY [facility] Administration Glucagon 1 mg 05/04/24 05:11 Glucagon For Inj 1 Mg Vial IM PRN PRN Hypoglycemia Protocol Glucose 15 gm 05/04/24 05:11 Glucose Oral Gel 15 Gm Of Glucse In 37.5 Gm Tube PO PRN PRN Hypoglycemia Protocol Ceftriaxone Sodium 1 gm in 50 mls @ 100 mls/hr 05/05/24 05:00 05/05/24 04:21 Rocephin 1 Gm/Ns 50 Ml IVPB 100 mls/hr Q24H [facility] Administration Dextrose 1,000 mls @ 100 mls/hr 05/04/24 05:11 Dextrose 5% 1,000 Ml IVPB PRN PRN Hypoglycemia Protocol Insulin Aspart 1 - 3 units 05/04/24 21:00 05/04/24 21:34 Insulin Aspart (*Bkc) 100 Units/Ml SUB-Q Not Given HS [facility] Protocol Insulin Aspart 2 - 5 units 05/05/24 08:00 05/05/24 12:04 Insulin Aspart (*Bkc) 100 Units/Ml SUB-Q Not Given TIDWM [facility] Protocol Insulin Glargine 20 units 05/05/24 09:00 05/05/24 08:14 Insulin Glargine (*Bkc) 100 Units/Ml SUB-Q 20 units QAM [facility] Administration Ipratropium [place] 2 spray 05/04/24 10:44 Ipratropium Nasal [place] 0.03% 15 Ml Bottle NASAL DAILY PRN nasal drainage Lisinopril 10 mg 05/04/24 10:55 05/05/24 08:13 Lisinopril 10 Mg Tablet PO 10 mg DAILY [facility] Administration Melatonin 3 mg 05/04/24 21:00 05/04/24 20:21 Melatonin 3 Mg Tablet PO 3 mg HS [facility] Administration Memantine 10 mg 05/04/24 10:55 05/05/24 08:13 Memantine 10 Mg Tablet PO 10 mg BID [facility] Administration Metformin HCl 1,000 mg 05/04/24 17:00 05/05/24 08:13 Metformin Hcl 500 Mg Tablet PO 1,000 mg BID [facility] Administration Miscellaneous Information 0 each 05/04/24 00:01 Testosterone Topical Is Nonformulary - Can Patient Use From Home? Hold While Here? XX 06/03/24 00:00 CLARIFY [facility] Morphine Sulfate 2 mg 05/04/24 11:59 05/04/24 18:57 Morphine Sulfate (*Crx) 2 Mg/Ml Inj IV PUSH 2 mg Q6HR PRN Administration Pain Rated 7-10 Non-Formulary Medication 0 mg 05/04/24 21:00 Testosterone TOPICAL 06/03/24 20:59 QHS [facility] Oxybutynin Chloride 5 mg 05/04/24 11:54 05/04/24 23:37 Oxybutynin Chloride 5 Mg Tablet PO 5 mg TID PRN Administration Abdominal Cramping Simvastatin 20 mg 05/04/24 10:55 05/05/24 08:13 Simvastatin 20 Mg Tablet PO 20 mg DAILY [facility] Administration Sitagliptin Phosphate 100 mg 05/04/24 11:00 05/05/24 08:13 Sitagliptin Phosphate 100 Mg Tablet BY MOUTH 100 mg DAILY [facility] Administration Radiology Results: ITS Impressions Abdomen/Pelvis CT 05/04/24 06:30 IMPRESSION: 1. 7.4 cm enhancing mass in left kidney, consistent with renal cell carcinoma. 2. Distended bladder with mild bilateral hydronephrosis and hydroureter. Heterogeneous attenuation of material in the bladder, consistent with hematoma. Pelvis Ultrasound 05/04/24 13:17 IMPRESSION: 1. Hematoma in the bladder. Labs Labs: Laboratory Results - last 24 hr 05/04/24 05/04/24 05/04/24 16:22 17:10 20:01 WBC RBC Hgb 13.1 L Hct 38.5 L MCV MCH MCHC RDW Plt Count MPV Sodium Potassium Chloride Carbon Dioxide Anion Gap BUN Creatinine Estim Creat Clear Calc Estimated GFR Glucose POC Capillary Glucose 130 H 223 H Calcium Magnesium 05/04/24 05/04/24 05/05/24 23:15 23:23 05:51 WBC 8.8 RBC 4.24 L Hgb 12.7 L 12.7 L Hct 37.2 L 38.6 L MCV 91.0 MCH 30.0 MCHC 32.9 RDW 13.2 Plt Count 212 MPV 10.8 H Sodium 136 L Potassium 4.0 Chloride 103 Carbon Dioxide 22 Anion Gap 11 BUN 18 Creatinine 1.36 H Estim Creat Clear Calc 48 Estimated GFR 52 L Glucose 114 H POC Capillary Glucose 100 Calcium 8.8 Magnesium 2.0 05/05/24 05/05/24 08:11 11:41 WBC RBC Hgb Hct MCV MCH MCHC RDW Plt Count MPV Sodium Potassium Chloride Carbon Dioxide Anion Gap BUN Creatinine Estim Creat Clear Calc Estimated GFR Glucose POC Capillary Glucose 117 H 87 Calcium Magnesium Quality VTE Prophylaxis VTE prophylaxis: mechanical ordered
[2024-05-05 16:46] LABS: Glucose Point of Care 142 mg/dl (65-105)
--- NOTE | 2024-05-05 19:53 | PC.NURSE ---
On 05/05/24, the OCCUPATIONAL THERAPY SPECIALIST, Olya, provided care and [facility] documentation on this patient. I have reviewed the OCCUPATIONAL THERAPY SPECIALIST's documentation and agree with the findings.
[2024-05-05 20:20] VITALS: PULSE 65; RESP 16; O2SAT 97
[2024-05-05] MEDS: DONEPEZIL HCL 10 MG TABLET PO (20:26)
[2024-05-05] MEDS: AZELASTINE HCL NASAL 0.1% 137 MCG/SPR 30 ML BTL 2 SPRAY NASAL (20:26)
[2024-05-05] MEDS: MELATONIN 3 MG TABLET PO (20:26)
[2024-05-05 20:42] VITALS: BP 125/63; PULSE 65; RESP 16; TEMP 36.7; O2SAT 97
[2024-05-05 21:12] LABS: Glucose Point of Care 133 mg/dl (65-105)
--- NOTE | 2024-05-06 00:39 | PC.NURSE ---
daylight savings time
--- NOTE | 2024-05-06 03:03 | PC.NURSE ---
Daylight Savings Time For Daylight Savings Time Ending in the Fall - Clocks are moved back. For Daylight Savings Time Beginning in the Spring - Clocks are moved ahead. For [facility], the time of change occurs at 0200 hrs. Time is taken from the hvac specialist. This entry on the patient's chart recognizes the change in time reflected during documentation. Example: 2 entries for vital signs may be charted for 0200 hrs.
[2024-05-06 05:08] VITALS: BP 133/68; PULSE 59; RESP 16; TEMP 36.3; O2SAT 96
[2024-05-06 06:02] LABS: Hematocrit 37.8 % (42.0-52.0); Hemoglobin 12.8 g/dL (14.0-18.0); Mean Corpuscular HGB Conc 33.9 g/dl (32-36); Mean Corpuscular Hemoglobin 30.8 pg (26-34); Mean Corpuscular Volume 90.9 fl (80-100); Mean Platelet Volume 10.4 fl (7.4-10.4); Platelet Count Result 217 k/mm3 (150-375); Red Blood Count 4.16 M/mm3 (4.6-6.20); Red Cell Distribution Width 13.2 % (11.5-14.5); White Blood Count 8.8 K/mm3 (4.5-10.0)
[2024-05-06 06:12] LABS: Anion Gap 13 mmol/L (4-12); Blood Urea Nitrogen 22 mg/dL (9-20); Calcium 8.9 mg/dL (8.4-10.2); Carbon Dioxide 19 mmol/L (22-30); Chloride 103 mmol/L (98-107); Estimated CRCL calculation 46 ml/min; Estimated Glomerular Filt Rate 50; Glucose 109 mg/dL (65-110); Magnesium 2.1 mg/dL (1.6-2.3); Potassium 3.8 mmol/L (3.4-5.0); Sodium 135 mmol/L (137-145)
[2024-05-06 08:17] LABS: Glucose Point of Care 101 mg/dl (65-105)
--- NOTE | 2024-05-06 08:56 | WPDUROPN2 ---
Progress Note: A&P Assessment and Plan (1) Gross hematuria: Code(s): R31.0 - Gross hematuria Status: Acute Assessment and Plan: Unclear if due to renal mass or a lower urinary tract urologic etiology -- regardless, inpatient goal is to get him out of clot retention Urine Cultures negative, no further antibiotics needed Urologically cleared for d/c home today Plan for hall removal with a void trial prior to d/c Patient being set up for outpatient urologic follow up (2) Renal mass, left: Code(s): N28.89 - Other specified disorders of kidney and ureter Status: Acute Assessment and Plan: Will eventually need outpatient follow up to discuss Left Nephrectomy likely with Drs. Boyd or Kurt Subjective Subjective Date/Time Seen: 05/06/24 08:56 Interval history: GISSEL overnight Urine remains clear light pink with CBI off -- did not need manual irrigation overnight Urine Culture came back negative Review of Systems Review of Systems: All systems reviewed & are unremarkable except as noted in HPI and below Exam Narrative: No acute distress Hall draining light pink urine off of CBI Objective Data Vital Signs Vital Signs: Vital Signs - 24 hr 05/05/24 08:10 05/05/24 14:00 05/05/24 20:20 Temperature 36.3 C L Pulse Rate 63 65 Respiratory Rate 18 16 Blood Pressure 119/55 L Pulse Oximetry 97 97 Oxygen Delivery Room Air Room Air 05/05/24 20:42 05/06/24 05:08 Temperature 36.7 C 36.3 C L Pulse Rate 65 59 L Respiratory Rate 16 16 Blood Pressure 125/63 133/68 Pulse Oximetry 97 96 Oxygen Delivery Intake/Output Intake/Output: Intake & Output 05/03/24 05/04/24 05/05/24 05/07/24 23:59 23:59 23:59 00:59 Intake Total 530 2010 500 Output Total 2353 9607 Balance -2876 -2105 500 Meds/Results Medications: Active Medications Generic Name Dose Route Start Last Admin Trade Name Freq PRN Reason Stop Dose Admin Acetaminophen 650 mg 05/04/24 05:11 05/05/24 20:20 Acetaminophen 325 Mg Tablet PO 650 mg Q6H PRN Administration Mild Pain (1-3) or Fever Azelastine HCl 2 spray 05/04/24 21:00 05/05/24 20:26 Azelastine Hcl Nasal 0.1% 137 Mcg/Spr 30 Ml Btl NASAL 2 spray HS [facility] Administration Dextrose 12.5 gm 05/04/24 05:11 Dextrose 50% 25 Gm/50 Ml Syringe IV PUSH PRN PRN Hypoglycemia Protocol Donepezil HCl 10 mg 05/04/24 21:00 05/05/24 20:26 Donepezil Hcl 10 Mg Tablet PO 10 mg QHS [facility] Administration Empagliflozin 25 mg 05/04/24 11:00 05/05/24 08:13 Empagliflozin 25 Mg Tablet BY MOUTH 25 mg DAILY [facility] Administration Glucagon 1 mg 05/04/24 05:11 Glucagon For Inj 1 Mg Vial IM PRN PRN Hypoglycemia Protocol Glucose 15 gm 05/04/24 05:11 Glucose Oral Gel 15 Gm Of Glucse In 37.5 Gm Tube PO PRN PRN Hypoglycemia Protocol Ceftriaxone Sodium 1 gm in 50 mls @ 100 mls/hr 05/05/24 05:00 05/06/24 04:52 Rocephin 1 Gm/Ns 50 Ml IVPB 100 mls/hr Q24H [facility] Administration Dextrose 1,000 mls @ 100 mls/hr 05/04/24 05:11 Dextrose 5% 1,000 Ml IVPB PRN PRN Hypoglycemia Protocol Insulin Aspart 1 - 3 units 05/04/24 21:00 05/05/24 21:32 Insulin Aspart (*Bkc) 100 Units/Ml SUB-Q Not Given HS [facility] Protocol Insulin Aspart 2 - 5 units 05/05/24 08:00 05/05/24 17:27 Insulin Aspart (*Bkc) 100 Units/Ml SUB-Q Not Given TIDWM [facility] Protocol Insulin Glargine 20 units 05/05/24 09:00 05/05/24 08:14 Insulin Glargine (*Bkc) 100 Units/Ml SUB-Q 20 units QAM [facility] Administration Ipratropium [place] 2 spray 05/04/24 10:44 Ipratropium Nasal [place] 0.03% 15 Ml Bottle NASAL DAILY PRN nasal drainage Lisinopril 10 mg 05/04/24 10:55 05/05/24 08:13 Lisinopril 10 Mg Tablet PO 10 mg DAILY [facility] Administration Melatonin 3 mg 05/04/24 21:00 05/05/24 20:26 Melatonin 3 Mg Tablet PO 3 mg HS [facility] Administration Memantine 10 mg 05/04/24 10:55 05/05/24 17:28 Memantine 10 Mg Tablet PO 10 mg BID [facility] Administration Metformin HCl 1,000 mg 05/04/24 17:00 05/05/24 17:28 Metformin Hcl 500 Mg Tablet PO 1,000 mg BID [facility] Administration Miscellaneous Information 0 each 05/04/24 00:01 Testosterone Topical Is Nonformulary - Can Patient Use From Home? Hold While Here? XX 06/03/24 00:00 CLARIFY [facility] Morphine Sulfate 2 mg 05/04/24 11:59 05/04/24 18:57 Morphine Sulfate (*Crx) 2 Mg/Ml Inj IV PUSH 2 mg Q6HR PRN Administration Pain Rated 7-10 Non-Formulary Medication 0 mg 05/04/24 21:00 Testosterone TOPICAL 06/03/24 20:59 QHS [facility] Oxybutynin Chloride 5 mg 05/04/24 11:54 05/04/24 23:37 Oxybutynin Chloride 5 Mg Tablet PO 5 mg TID PRN Administration Abdominal Cramping Simvastatin 20 mg 05/04/24 10:55 05/05/24 08:13 Simvastatin 20 Mg Tablet PO 20 mg DAILY [facility] Administration Sitagliptin Phosphate 100 mg 05/04/24 11:00 05/05/24 08:13 Sitagliptin Phosphate 100 Mg Tablet BY MOUTH 100 mg DAILY [facility] Administration Radiology Results: ITS Impressions Abdomen/Pelvis CT 05/04/24 06:30 IMPRESSION: 1. 7.4 cm enhancing mass in left kidney, consistent with renal cell carcinoma. 2. Distended bladder with mild bilateral hydronephrosis and hydroureter. Heterogeneous attenuation of material in the bladder, consistent with hematoma. Pelvis Ultrasound 05/04/24 13:17 IMPRESSION: 1. Hematoma in the bladder. Labs Labs: Laboratory Results - last 24 hr 05/05/24 05/05/24 05/05/24 08:11 11:41 16:42 WBC RBC Hgb Hct MCV MCH MCHC RDW Plt Count MPV Sodium Potassium Chloride Carbon Dioxide Anion Gap BUN Creatinine Estim Creat Clear Calc Estimated GFR Glucose POC Capillary Glucose 117 H 87 142 H Calcium Magnesium 05/05/24 05/06/24 05/06/24 20:14 05:46 08:00 WBC 8.8 RBC 4.16 L Hgb 12.8 L Hct 37.8 L MCV 90.9 MCH 30.8 MCHC 33.9 RDW 13.2 Plt Count 217 MPV 10.4 Sodium 135 L Potassium 3.8 Chloride 103 Carbon Dioxide 19 L Anion Gap 13 H BUN 22 H Creatinine 1.42 H Estim Creat Clear Calc 46 Estimated GFR 50 L Glucose 109 POC Capillary Glucose 133 H 101 Calcium 8.9 Magnesium 2.1
[2024-05-06] MEDS: EMPAGLIFLOZIN 25 MG TABLET BY MOUTH (10:01)
[2024-05-06] MEDS: SITagliptin PHOSPHATE 100 MG TABLET BY MOUTH (10:01)
[2024-05-06] MEDS: lisinopriL 10 MG TABLET PO (10:01)
[2024-05-06] MEDS: metFORMIN HCL 500 MG TABLET 1000 MG PO ×2 (10:02→18:02)
[2024-05-06] MEDS: SIMVASTATIN 20 MG TABLET PO (10:02)
[2024-05-06] MEDS: NACL 0.9% IRRIGATION POUR BOTTLE 500 ML (10:02)
[2024-05-06] MEDS: WATER FOR IRRIGATION, STERILE 1,000 ML BOTTLE 1000 ML (10:02)
[2024-05-06] MEDS: MEMANTINE 10 MG TABLET PO ×2 (10:02→18:02)
[2024-05-06] MEDS: INSULIN GLARGINE (*BKC) 100 UNITS/ML 20 UNITS SUB-Q (10:09)
[2024-05-06 11:53] LABS: Glucose Point of Care 97 mg/dl (65-105)
[2024-05-06 14:00] VITALS: BP 133/62; PULSE 71; RESP 20; TEMP 36.4; O2SAT 98
--- NOTE | 2024-05-06 14:36 | P.PNIM_ITS ---
Progress Note: A&P Assessment and Plan (1) Hematuria: Code(s): R31.9 - Hematuria, unspecified Status: Acute (2) Abnormal finding on diagnostic imaging of kidney: Code(s): R93.429 - Abnormal radiologic findings on diagnostic imaging of unspecified kidney Status: Acute (3) Left nephrolithiasis: Code(s): N20.0 - Calculus of kidney Status: Acute (4) Hypertension: Code(s): I10 - Essential (primary) hypertension Status: Acute (5) Type 2 diabetes mellitus: Code(s): E11.9 - Type 2 diabetes mellitus without complications Status: Acute (6) Obstructive sleep apnea: Code(s): G47.33 - Obstructive sleep apnea (adult) (pediatric) Status: Acute (7) Mild dementia: Code(s): F03.A0 - Unspecified dementia, mild, without behavioral disturbance, psychotic disturbance, mood disturbance, and anxiety Status: Acute Plan The patient presented to the emergency department for evaluation of difficulties urinating blood in the urine as detailed in HPI. Labs, imaging, EKG, and all reports were personally reviewed. Three way [place] catheter was inserted and he has been started on CBI. He will be NPO for possible cystoscopy later on today. Left kidney stone does not seem to be causing issues at this time. Eventually he will need an MRI to evaluate the left kidney due to concerns for possible malignancy. Continue empiric ceftriaxone, pending urine cultures. Blood pressures have been running a bit high and will be monitored. CPAP will be provided for the patient to use while hospitalized. Initiate sliding scale insulin, Accu-Cheks, and hypoglycemic protocol. His home medications will be reviewed and resumed as appropriate. Findings and treatment plan were discussed with the patient. Questions were solicited and answered to satisfaction. The patient's medical management will be taken over by the hospitalist team in a.m. patient with hematuria, suspect most likely 2/2 renal mass, urologist irrigated the bladder, CBI is working there is still some blood coming out, patient stats feels better compare when he arrived, today patient was seen by his urologist, recommended to continue CBI and clamped it on 05/06 at 6am, once clamp was removed patient had bloody urine output, patient was seen by his urologist recommended to conitnue CBI, keep patient NPO, will have CT scan in the morning and further recommendation, will monitor, urine culture no growth so far, patient will need to remove the renal mass later when clinically stable, patient has a diabetes will continue home regimen and monitor with sliding scale. Patient is present in the room Subjective Date/time seen: 05/06/24 14:36 Interval history: H&P-Narrative: This is a 69-year-old male with history of kidney stones, dementia, hypertension, hyperlipidemia, type 2 diabetes mellitus, and obstructive sleep a pnea who presented to the emergency department via private vehicle with complaints of difficulties urinating and blood in the urine. The patient provides the following history. He reports intermittent hematuria for a few weeks for which he has seen Urology with plans for upcoming cystoscopy. He is now having difficulties emptying his bladder and has noticed blood in the urine. In the ED: Blood pressure was 163/98 on arrival, the remainder of his vital signs were stable. Labs are significant for WBC count of 11.0, hemoglobin 13.1, sodium 134, carbon dioxide 18, anion gap 15, glucose 126. Urinalysis was positive for 3+ protein, 2+ glucose, 3+ blood, nitrates, 1+ leukocyte esterase, greater than 100 RBC, and [address] of the abdomen and pelvis showed nonobstructing 2 mm left lower pole calculus, heterogeneous fluid within the bladder favored to reflect hemorrhagic blood products and asymmetric enlargement and hypoenhancement of the entirety of the left inter pole and lower pole kidney concerning for infiltrative process. Three way [place] catheter was inserted he has been started on CBI. He is being admitted in this setting for further treatment and urology consultation. patient with hematuria, suspect most likely 2/2 renal mass, urologist irrigated the bladder, CBI is working there is still some blood coming out, patient stats feels better compare when he arrived, today patient was seen by his urologist, recommended to continue CBI and clamped it on 05/06 at 6am, once clamp was removed patient had bloody urine output, patient was seen by his urologist recommended to conitnue CBI, keep patient NPO, will have CT scan in the morning and further recommendation, will monitor, urine culture no growth so far, patient will need to remove the renal mass later when clinically stable, patient has a diabetes will continue home regimen and monitor with sliding scale. Patient is present in the room Review of Systems Review of Systems: 12 systems were reviewed and are negativ e except for as per HPI. Objective Data Vital Signs Vital Signs: Vital Signs - 24 hr 05/05/24 14:00 05/05/24 20:20 05/05/24 20:42 Temperature 36.3 C L 36.7 C Pulse Rate 63 65 65 Respiratory Rate 18 16 16 Blood Pressure 119/55 L 125/63 Pulse Oximetry 97 97 97 Oxygen Delivery Room Air 05/06/24 05:08 05/06/24 10:45 Temperature 36.3 C L Pulse Rate 59 L Respiratory Rate 16 Blood Pressure 133/68 Pulse Oximetry 96 Oxygen Delivery Room Air Intake/Output Intake/Output: Intake & Output 05/03/24 05/04/24 05/05/24 05/07/24 23:59 23:59 23:59 00:59 Intake Total 530 2010 900 Output Total 1600 9004 Balance -9268 -4461 900 Meds/Results Medications: Active Medications Generic Name Dose Route Start Last Admin Trade Name Daydayq PRN Reason Stop Dose Admin Acetaminophen 650 mg 05/04/24 05:11 05/05/24 20:20 Acetaminophen 325 Mg Tablet PO 650 mg Q6H PRN Administration Mild Pain (1-3) or Fever Azelastine HCl 2 spray 05/04/24 21:00 05/05/24 20:26 Azelastine Hcl Nasal 0.1% 137 Mcg/Spr 30 Ml Btl NASAL 2 spray HS [facility] Administration Dextrose 12.5 gm 05/04/24 05:11 Dextrose 50% 25 Gm/50 Ml Syringe IV PUSH PRN PRN Hypoglycemia Protocol Donepezil HCl 10 mg 05/04/24 21:00 05/05/24 20:26 Donepezil Hcl 10 Mg Tablet PO 10 mg QHS [facility] Administration Empagliflozin 25 mg 05/04/24 11:00 05/06/24 10:01 Empagliflozin 25 Mg Tablet BY MOUTH 25 mg DAILY [facility] Administration Glucagon 1 mg 05/04/24 05:11 Glucagon For Inj 1 Mg Vial IM PRN PRN Hypoglycemia Protocol Glucose 15 gm 05/04/24 05:11 Glucose Oral Gel 15 Gm Of Glucse In 37.5 Gm Tube PO PRN PRN Hypoglycemia Protocol Ceftriaxone Sodium 1 gm in 50 mls @ 100 mls/hr 05/05/24 05:00 05/06/24 04:52 Rocephin 1 Gm/Ns 50 Ml IVPB 100 mls/hr Q24H [facility] Administration Dextrose 1,000 mls @ 100 mls/hr 05/04/24 05:11 Dextrose 5% 1,000 Ml IVPB PRN PRN Hypoglycemia Protocol Insulin Aspart 1 - 3 units 05/04/24 21:00 05/05/24 21:32 Insulin Aspart (*Bkc) 100 Units/Ml SUB-Q Not Given HS [facility] Protocol Insulin Aspart 2 - 5 units 05/05/24 08:00 05/06/24 13:58 Insulin Aspart (*Bkc) 100 Units/Ml SUB-Q Not Given TIDWM [facility] Protocol Insulin Glargine 20 units 05/05/24 09:00 05/06/24 10:09 Insulin Glargine (*Bkc) 100 Units/Ml SUB-Q 20 units QAM [facility] Administration Ipratropium [place] 2 spray 05/04/24 10:44 Ipratropium Nasal [place] 0.03% 15 Ml Bottle NASAL DAILY PRN nasal drainage Lisinopril 10 mg 05/04/24 10:55 05/06/24 10:01 Lisinopril 10 Mg Tablet PO 10 mg DAILY [facility] Administration Melatonin 3 mg 05/04/24 21:00 05/05/24 20:26 Melatonin 3 Mg Tablet PO 3 mg HS [facility] Administration Memantine 10 mg 05/04/24 10:55 05/06/24 10:02 Memantine 10 Mg Tablet PO 10 mg BID [facility] Administration Metformin HCl 1,000 mg 05/04/24 17:00 05/06/24 10:02 Metformin Hcl 500 Mg Tablet PO 1,000 mg BID [facility] Administration Miscellaneous Information 0 each 05/04/24 00:01 Testosterone Topical Is Nonformulary - Can Patient Use From Home? Hold While Here? XX 06/03/24 00:00 CLARIFY [facility] Morphine Sulfate 2 mg 05/04/24 11:59 05/04/24 18:57 Morphine Sulfate (*Crx) 2 Mg/Ml Inj IV PUSH 2 mg Q6HR PRN Administration Pain Rated 7-10 Non-Formulary Medication 0 mg 05/04/24 21:00 Testosterone TOPICAL 06/03/24 20:59 QHS [facility] Oxybutynin Chloride 5 mg 05/04/24 11:54 05/04/24 23:37 Oxybutynin Chloride 5 Mg Tablet PO 5 mg TID PRN Administration Abdominal Cramping Simvastatin 20 mg 05/04/24 10:55 05/06/24 10:02 Simvastatin 20 Mg Tablet PO 20 mg DAILY [facility] Administration Sitagliptin Phosphate 100 mg 05/04/24 11:00 05/06/24 10:01 Sitagliptin Phosphate 100 Mg Tablet BY MOUTH 100 mg DAILY [facility] Administration Radiology Results: ITS Impressions Abdomen/Pelvis CT 05/04/24 06:30 IMPRESSION: 1. 7.4 cm enhancing mass in left kidney, consistent with renal cell carcinoma. 2. Distended bladder with mild bilateral hydronephrosis and hydroureter. Heterogeneous attenuation of material in the bladder, consistent with hematoma. Pelvis Ultrasound 05/04/24 13:17 IMPRESSION: 1. Hematoma in the bladder. Labs Labs: Laboratory Results - last 24 hr 05/05/24 05/05/24 05/06/24 16:42 20:14 05:46 WBC 8.8 RBC 4.16 L Hgb 12.8 L Hct 37.8 L MCV 90.9 MCH 30.8 MCHC 33.9 RDW 13.2 Plt Count 217 MPV 10.4 Sodium 135 L Potassium 3.8 Chloride 103 Carbon Dioxide 19 L Anion Gap 13 H BUN 22 H Creatinine 1.42 H Estim Creat Clear Calc 46 Estimated GFR 50 L Glucose 109 POC Capillary Glucose 142 H 133 H Calcium 8.9 Magnesium 2.1 05/06/24 05/06/24 08:00 11:44 WBC RBC Hgb Hct MCV MCH MCHC RDW Plt Count MPV Sodium Potassium Chloride Carbon Dioxide Anion Gap BUN Creatinine Estim Creat Clear Calc Estimated GFR Glucose POC Capillary Glucose 101 97 Calcium Magnesium Quality VTE Prophylaxis VTE prophylaxis: mechanical ordered
[2024-05-06 17:17] LABS: Glucose Point of Care 109 mg/dl (65-105)
[2024-05-06 20:00] VITALS: PULSE 71; RESP 20; O2SAT 98
[2024-05-06] MEDS: DONEPEZIL HCL 10 MG TABLET PO (20:13)
[2024-05-06] MEDS: MELATONIN 3 MG TABLET 6 MG PO (20:15)
[2024-05-06] MEDS: AZELASTINE HCL NASAL 0.1% 137 MCG/SPR 30 ML BTL 2 SPRAY NASAL (20:19)
[2024-05-06 20:30] VITALS: BP 126/75; PULSE 67; RESP 18; TEMP 36.8; O2SAT 98
[2024-05-06 22:02] LABS: Glucose Point of Care 167 mg/dl (65-105)
[2024-05-07 06:00] VITALS: BP 126/78; PULSE 65; RESP 16; TEMP 36.9; O2SAT 98
[2024-05-07 06:36] LABS: Hemoglobin 12.7 g/dL (14.0-18.0); Mean Corpuscular HGB Conc 32.6 g/dl (32-36); Mean Corpuscular Hemoglobin 30.2 pg (26-34); Mean Corpuscular Volume 92.9 fl (80-100); Mean Platelet Volume 10.5 fl (7.4-10.4); Platelet Count Result 246 k/mm3 (150-375); Red Cell Distribution Width 13.2 % (11.5-14.5)
[2024-05-07 06:51] LABS: Anion Gap 9 mmol/L (4-12); Blood Urea Nitrogen 22 mg/dL (9-20); Calcium 8.8 mg/dL (8.4-10.2); Carbon Dioxide 26 mmol/L (22-30); Chloride 104 mmol/L (98-107); Estimated CRCL calculation 41 ml/min; Estimated Glomerular Filt Rate 43; Glucose 97 mg/dL (65-110); Magnesium 2.1 mg/dL (1.6-2.3); Potassium 4.2 mmol/L (3.4-5.0); Sodium 139 mmol/L (137-145)
[2024-05-07 07:50] LABS: Glucose Point of Care 98 mg/dl (65-105)
--- NOTE | 2024-05-07 08:56 | WPDUROPN2 ---
Progress Note: A&P Assessment and Plan (1) Gross hematuria: Code(s): R31.0 - Gross hematuria Status: Acute (2) Renal mass, left: Code(s): N28.89 - Other specified disorders of kidney and ureter Status: Acute Plan 69-year-old admitted with gross hematuria and clot retention. CT on 05/04/2024 revealed 7cm left lower pole renal mass. Initially cleared on CBI but developed recurrent gross hematuria prior to discharge. - Recurrent gross hematuria after initial improvement warranted further CT imaging to reassess clot burden and left kidney. - Repeat CT abdomen/pelvis this AM shows left kidney lower pole mass and possible clot in the left renal pelvis. The urinary bladder is underfilled no definite clot seen. - Discussed with Dr. Olivo --> source of bleeding likely r/t left renal mass. Recommend left nephrectomy. No need for cysto/clot evac today. - Discussed with patient and spouse --> agreeable to nephrectomy as soon as tomorrow pending OR availability. - NPO after midnight. Hold all blood thinners/ASA. OK to resume diet today. Maintain indwelling [place]. Continue to wean CBI as able, irrigate PRN clots. Subjective Subjective Date/Time Seen: 05/07/24 08:56 Interval history: Initially cleared on CBI yesterday but developed recurrent gross hematuria prior to discharge. - Repeat CT abdomen/pelvis without contrast this AM to assess clot burden shows left kidney lower pole mass and possible clot in the left renal pelvis. The urinary bladder is underfilled no definite clot seen. - Urine draining light red on CBI this morning, no clots, no pain - Hgb stable, renal function worsening Exam Narrative: No acute distress [place] draining light red on CBI Objective Data Vital Signs Vital Signs: Vital Signs - 24 hr 05/06/24 10:45 05/06/24 14:00 05/06/24 20:00 Temperature 97.5 F L Pulse Rate 71 71 Respiratory Rate 20 20 Blood Pressure 133/62 Pulse Oximetry 98 98 Oxygen Delivery Room Air Room Air 05/06/24 20:30 05/07/24 06:00 Temperature 98.2 F 98.5 F Pulse Rate 67 65 Respiratory Rate 18 16 Blood Pressure 126/75 126/78 Pulse Oximetry 98 98 Oxygen Delivery Intake/Output Intake/Output: Intake & Output 0305/05/24 05/07/24 05/07/24 23:59 23:59 00:59 23:59 Intake Total 530 2009 1800 900 Output Total 1600 7339 866 Balance -1076 -2684 1800 150 Meds/Results Medications: Active Medications Generic Name Dose Route Start Last Admin Trade Name Freq PRN Reason Stop Dose Admin Acetaminophen 650 mg 05/04/24 05:11 05/05/24 20:20 Acetaminophen 325 Mg Tablet PO 650 mg Q6H PRN Administration Mild Pain (1-3) or Fever Azelastine HCl 2 spray 05/04/24 21:00 05/06/24 20:19 Azelastine Hcl Nasal 0.1% 137 Mcg/Spr 30 Ml Btl NASAL 2 spray HS [facility] Administration Dextrose 12.5 gm 05/04/24 05:11 Dextrose 50% 25 Gm/50 Ml Syringe IV PUSH PRN PRN Hypoglycemia Protocol Donepezil HCl 10 mg 05/04/24 21:00 05/06/24 20:13 Donepezil Hcl 10 Mg Tablet PO 10 mg QHS [facility] Administration Empagliflozin 25 mg 05/04/24 11:00 05/07/24 08:25 Empagliflozin 25 Mg Tablet BY MOUTH Not Given DAILY [facility] Glucagon 1 mg 05/04/24 05:11 Glucagon For Inj 1 Mg Vial IM PRN PRN Hypoglycemia Protocol Glucose 15 gm 05/04/24 05:11 Glucose Oral Gel 15 Gm Of Glucse In 37.5 Gm Tube PO PRN PRN Hypoglycemia Protocol Ceftriaxone Sodium 1 gm in 50 mls @ 100 mls/hr 05/05/24 05:00 05/07/24 06:06 Rocephin 1 Gm/Ns 50 Ml IVPB Infused Q24H [facility] Infusion Dextrose 1,000 mls @ 100 mls/hr 05/04/24 05:11 Dextrose 5% 1,000 Ml IVPB PRN PRN Hypoglycemia Protocol Insulin Aspart 1 - 3 units 05/04/24 21:00 05/06/24 20:26 Insulin Aspart (*Bkc) 100 Units/Ml SUB-Q Not Given HS [facility] Protocol Insulin Aspart 2 - 5 units 05/05/24 08:00 05/07/24 08:10 Insulin Aspart (*Bkc) 100 Units/Ml SUB-Q Not Given TIDWM [facility] Protocol Insulin Glargine 20 units 05/05/24 09:00 05/07/24 08:25 Insulin Glargine (*Bkc) 100 Units/Ml SUB-Q Not Given QAM [facility] Ipratropium [place] 2 spray 05/04/24 10:44 Ipratropium Nasal [place] 0.03% 15 Ml Bottle NASAL DAILY PRN nasal drainage Lisinopril 10 mg 05/04/24 10:55 05/07/24 08:26 Lisinopril 10 Mg Tablet PO Not Given DAILY [facility] Melatonin 6 mg 05/06/24 21:00 05/06/24 20:15 Melatonin 3 Mg Tablet PO 6 mg HS [facility] Administration Memantine 10 mg 05/04/24 10:55 05/07/24 08:26 Memantine 10 Mg Tablet PO Not Given BID [facility] Metformin HCl 1,000 mg 05/04/24 17:00 05/07/24 08:26 Metformin Hcl 500 Mg Tablet PO Not Given BID [facility] Morphine Sulfate 2 mg 05/04/24 11:59 05/04/24 18:57 Morphine Sulfate (*Crx) 2 Mg/Ml Inj IV PUSH 2 mg Q6HR PRN Administration Pain Rated 7-10 Non-Formulary Medication 0 mg 05/04/24 21:00 Testosterone TOPICAL 06/03/24 20:59 HS [facility] Oxybutynin Chloride 5 mg 05/04/24 11:54 05/04/24 23:37 Oxybutynin Chloride 5 Mg Tablet PO 5 mg TID PRN Administration Abdominal Cramping Simvastatin 20 mg 05/04/24 10:55 05/07/24 08:26 Simvastatin 20 Mg Tablet PO Not Given DAILY [facility] Sitagliptin Phosphate 100 mg 05/04/24 11:00 05/07/24 08:26 Sitagliptin Phosphate 100 Mg Tablet BY MOUTH Not Given DAILY [facility] Radiology Results: ITS Impressions Pelvis Ultrasound 05/04/24 13:17 IMPRESSION: 1. Hematoma in the bladder. Labs Labs: Laboratory Results - last 24 hr 05/06/24 05/06/24 05/06/24 11:44 16:51 20:24 WBC RBC Hgb Hct MCV MCH MCHC RDW Plt Count MPV Sodium Potassium Chloride Carbon Dioxide Anion Gap BUN Creatinine Estim Creat Clear Calc Estimated GFR Glucose POC Capillary Glucose 97 109 H 167 H Calcium Magnesium 05/07/24 05/07/24 05:53 07:47 WBC 8.0 RBC 4.20 L Hgb 12.7 L Hct 39.0 L MCV 92.9 MCH 30.2 MCHC 32.6 RDW 13.2 Plt Count 246 MPV 10.5 H Sodium 139 Potassium 4.2 Chloride 104 Carbon Dioxide 26 Anion Gap 9 BUN 22 H Creatinine 1.60 H Estim Creat Clear Calc 41 Estimated GFR 43 L Glucose 97 POC Capillary Glucose 98 Calcium 8.8 Magnesium 2.1
[2024-05-07 11:40] LABS: Glucose Point of Care 107 mg/dl (65-105)
[2024-05-07] MEDS: oxyBUTYnin CHLORIDE 5 MG TABLET PO (13:44)
[2024-05-07] MEDS: ACETAMINOPHEN 325 MG TABLET 650 MG PO (13:44)
[2024-05-07 14:00] VITALS: BP 122/61; PULSE 64; RESP 16; TEMP 36.5; O2SAT 98
--- NOTE | 2024-05-07 16:19 | P.TS_ITS ---
Transfer Discharge Sum: Prov Provider Date of admission: 05/04/24 11:22 Primary care physician: Antonio Peña MD Admitting clinician: David Aranda MD Consults: 05/04/24 05:01 Consult to Physician Routine Comment: Consulting Provider: Ap Olivo Reason for consultation: Hematuria Has provider been notified: Yes Transfer Discharge Sum: Med Medications Active and Home Medications: Home Medications lisinopril 10 mg tablet 10 mg PO DAILY 04/29/21 [History Confirmed 05/04/24] melatonin 1 mg tablet 2 mg PO QHS 04/29/21 [History Confirmed 05/04/24] simvastatin 20 mg tablet 20 mg PO DAILY 04/29/21 [History Confirmed 05/04/24] testosterone 1.62 % (40.5 mg/2.5 gram) transdermal gel packet See Rx Instructions topical QHS 01/11/23 [History Confirmed 05/04/24] blood sugar diagnostic (OneTouch Ultra Test strips) #100 ea 11/22/23 [Rx Confirmed 05/04/24] blood-glucose meter (OneTouch Verio Flex Meter) #1 ea 11/22/23 [Rx Confirmed 05/04/24] lancets 30 gauge (Onetouch Delica Safety Lancet) #200 ea 11/22/23 [Rx Confirmed 05/04/24] azelastine 137 mcg (0.1 %) nasal spray 137 mcg (0.137 mL) intranasal . q.h.s. chronic seasonal allergic rhinitis #30 mL 11/28/23 [Rx Confirmed 05/04/24] metformin 1,000 mg tablet 1,000 mg PO BID #180 tabs 12/26/23 [Rx Confirmed 05/04/24] insulin degludec 200 unit/mL (3 mL) subcutaneous pen (Tresiba FlexTouch U-200 insulin) 20 unit (0.1 mL) subcut QAM #9 mL 01/13/24 [Rx Confirmed 05/04/24] pen needle, diabetic 32 gauge x (BD Danilela 2nd Gen Pen Needle) #100 ea 03/27/24 [Rx Confirmed 05/04/24] empagliflozin 25 mg-linagliptin 5 mg tablet (Glyxambi) 1 tablet PO DAILY #90 tabs 04/02/24 [Rx Confirmed 05/04/24] donepezil 10 mg tablet (Aricept) 10 mg PO QHS #90 tabs 04/25/24 [Rx Confirmed 05/04/24] memantine 10 mg tablet 10 mg PO BID #180 tabs 04/25/24 [Rx Confirmed 05/04/24] ipratropium bromide 21 mcg (0.03 %) nasal spray 2 spray intranasal DAILY PRN nasal drainage 05/04/24 [History Confirmed 05/04/24] Active Medications Acetaminophen (Acetaminophen 325 Mg Tablet) 650 mg PO Q6H PRN PRN Reason: Mild Pain (1-3) or Fever Last Admin: 05/07/24 13:44 Dose: 650 mg Azelastine HCl (Azelastine Hcl Nasal 0.1% 137 Mcg/Spr 30 Ml Btl) 2 spray NASAL HS [facility] Last Admin: 05/06/24 20:19 Dose: 2 spray Dextrose (Dextrose 50% 25 Gm/50 Ml Syringe) 12.5 gm IV PUSH PRN PRN; Protocol PRN Reason: Hypoglycemia Donepezil HCl (Donepezil Hcl 10 Mg Tablet) 10 mg PO QHS [facility] Last Admin: 05/06/24 20:13 Dose: 10 mg Empagliflozin (Empagliflozin 25 Mg Tablet) 25 mg BY MOUTH DAILY [facility] Last Admin: 05/07/24 08:25 Dose: Not Given Glucagon (Glucagon For Inj 1 Mg Vial) 1 mg IM PRN PRN; Protocol PRN Reason: Hypoglycemia Glucose (Glucose Oral Gel 15 Gm Of Glucse In 37.5 Gm Tube) 15 gm PO PRN PRN; Protocol PRN Reason: Hypoglycemia Ceftriaxone Sodium (Rocephin 1 Gm/Ns 50 Ml) 1 gm in 50 mls @ 100 mls/hr IVPB Q24H [facility] Last Infusion: 05/07/24 06:06 Dose: Infused Dextrose (Dextrose 5% 1,000 Ml) 1,000 mls @ 100 mls/hr IVPB PRN PRN; Protocol PRN Reason: Hypoglycemia Insulin Aspart (Insulin Aspart (*Bkc) 100 Units/Ml) 1 - 3 units SUB-Q HS [facility]; Protocol Last Admin: 05/06/24 20:26 Dose: Not Given Insulin Aspart (Insulin Aspart (*Bkc) 100 Units/Ml) 2 - 5 units SUB-Q TIDWM [facility]; Protocol Last Admin: 05/07/24 11:58 Dose: Not Given Insulin Glargine (Insulin Glargine (*Bkc) 100 Units/Ml) 20 units SUB-Q QAM [facility] Last Admin: 05/07/24 08:25 Dose: Not Given Ipratropium [place] (Ipratropium Nasal [place] 0.03% 15 Ml Bottle) 2 spray NASAL DAILY PRN PRN Reason: nasal drainage Lisinopril (Lisinopril 10 Mg Tablet) 10 mg PO DAILY [facility] Last Admin: 05/07/24 08:26 Dose: Not Given Melatonin (Melatonin 3 Mg Tablet) 6 mg PO HS [facility] Last Admin: 05/06/24 20:15 Dose: 6 mg Memantine (Memantine 10 Mg Tablet) 10 mg PO BID [facility] Last Admin: 05/07/24 08:26 Dose: Not Given Metformin HCl (Metformin Hcl 500 Mg Tablet) 1,000 mg PO BID [facility] Last Admin: 05/07/24 08:26 Dose: Not Given Morphine Sulfate (Morphine Sulfate (*Crx) 2 Mg/Ml Inj) 2 mg IV PUSH Q6HR PRN PRN Reason: Pain Rated 7-10 Last Admin: 05/04/24 18:57 Dose: 2 mg Non-Formulary Medication (Testosterone) 0 mg [facility] Stop: 06/03/24 20:59 Oxybutynin Chloride (Oxybutynin Chloride 5 Mg Tablet) 5 mg PO TID PRN PRN Reason: Abdominal Cramping Last Admin: 05/07/24 13:44 Dose: 5 mg Simvastatin (Simvastatin 20 Mg Tablet) 20 mg PO DAILY [facility] Last Admin: 05/07/24 08:26 Dose: Not Given Sitagliptin Phosphate (Sitagliptin Phosphate 100 Mg Tablet) 100 mg BY MOUTH DAILY [facility] Last Admin: 05/07/24 08:26 Dose: Not Given Transfer Discharge Sum: Hosp Hospital Course Hospital course: Ruben Salguero Jr. is a 69 year old male patient is accepted by Dr. Elliott urologist and Dr. Hendricks hospitalist. Time Spent with Patient Time attestation: Total time spent providing and/or coordinating transfer services: DS: Data Data Completed and Pending Labs on day of discharge: Labs from last 24 hours 05/07/24 05/07/24 05/07/24 11:37 07:47 05:53 WBC 8.0 RBC 4.20 L Hgb 12.7 L Hct 39.0 L MCV 92.9 MCH 30.2 MCHC 32.6 RDW 13.2 Plt Count 246 MPV 10.5 H Sodium 139 Potassium 4.2 Chloride 104 Carbon Dioxide 26 Anion Gap 9 BUN 22 H Creatinine 1.60 H Estim Creat Clear Calc 41 Estimated GFR 43 L Glucose 97 POC Capillary Glucose 107 H 98 Calcium 8.8 Magnesium 2.1 05/06/24 05/06/24 20:24 16:51 WBC RBC Hgb Hct MCV MCH MCHC RDW Plt Count MPV Sodium Potassium Chloride Carbon Dioxide Anion Gap BUN Creatinine Estim Creat Clear Calc Estimated GFR Glucose POC Capillary Glucose 167 H 109 H Calcium Magnesium
--- NOTE | 2024-05-07 16:20 | P.TS_ITS ---
Transfer Discharge Sum: Prov Provider Date of admission: 05/04/24 11:22 Primary care physician: Antonio Peña MD Admitting clinician: David Aranda MD Consults: 05/04/24 05:01 Consult to Physician Routine Comment: Consulting Provider: Ap Olivo Reason for consultation: Hematuria Has provider been notified: Yes DS: Discharge Diagnosis Discharge Diagnosis Plan patient is accepte by Dr. Elliott urologist and Dr. Harrington hospitalist. Transfer Discharge Sum: Med Medications Active and Home Medications: Home Medications lisinopril 10 mg tablet 10 mg PO DAILY 04/29/21 [History Confirmed 05/04/24] melatonin 1 mg tablet 2 mg PO QHS 04/29/21 [History Confirmed 05/04/24] simvastatin 20 mg tablet 20 mg PO DAILY 04/29/21 [History Confirmed 05/04/24] testosterone 1.62 % (40.5 mg/2.5 gram) transdermal gel packet See Rx Instructions topical QHS 01/11/23 [History Confirmed 05/04/24] blood sugar diagnostic (OneTouch Ultra Test strips) #100 ea 11/22/23 [Rx Confirmed 05/04/24] blood-glucose meter (OneTouch Verio Flex Meter) #1 ea 11/22/23 [Rx Confirmed 05/04/24] lancets 30 gauge (Onetouch Delica Safety Lancet) #200 ea 11/22/23 [Rx Confirmed 05/04/24] azelastine 137 mcg (0.1 %) nasal spray 137 mcg (0.137 mL) intranasal . q.h.s. chronic seasonal allergic rhinitis #30 mL 11/28/23 [Rx Confirmed 05/04/24] metformin 1,000 mg tablet 1,000 mg PO BID #180 tabs 12/26/23 [Rx Confirmed 05/04/24] insulin degludec 200 unit/mL (3 mL) subcutaneous pen (Tresiba FlexTouch U-200 insulin) 20 unit (0.1 mL) subcut QAM #9 mL 01/13/24 [Rx Confirmed 05/04/24] pen needle, diabetic 32 gauge x 5/32 (BD Daniella 2nd Gen Pen Needle) #100 ea 03/27/24 [Rx Confirmed 05/04/24] empagliflozin 25 mg-linagliptin 5 mg tablet (Glyxambi) 1 tablet PO DAILY #90 tabs 04/02/24 [Rx Confirmed 05/04/24] donepezil 10 mg tablet (Aricept) 10 mg PO QHS #90 tabs 04/25/24 [Rx Confirmed 05/04/24] memantine 10 mg tablet 10 mg PO BID #180 tabs 04/25/24 [Rx Confirmed 05/04/24] ipratropium bromide 21 mcg (0.03 %) nasal spray 2 spray intranasal DAILY PRN nasal drainage 05/04/24 [History Confirmed 05/04/24] Active Medications Acetaminophen (Acetaminophen 325 Mg Tablet) 650 mg PO Q6H PRN PRN Reason: Mild Pain (1-3) or Fever Last Admin: 05/07/24 13:44 Dose: 650 mg Azelastine HCl (Azelastine Hcl Nasal 0.1% 137 Mcg/Spr 30 Ml Btl) 2 spray NASAL HS [facility] Last Admin: 05/06/24 20:19 Dose: 2 spray Dextrose (Dextrose 50% 25 Gm/50 Ml Syringe) 12.5 gm IV PUSH PRN PRN; Protocol PRN Reason: Hypoglycemia Donepezil HCl (Donepezil Hcl 10 Mg Tablet) 10 mg PO QHS [facility] Last Admin: 05/06/24 20:13 Dose: 10 mg Empagliflozin (Empagliflozin 25 Mg Tablet) 25 mg BY MOUTH DAILY [facility] Last Admin: 05/07/24 08:25 Dose: Not Given Glucagon (Glucagon For Inj 1 Mg Vial) 1 mg IM PRN PRN; Protocol PRN Reason: Hypoglycemia Glucose (Glucose Oral Gel 15 Gm Of Glucse In 37.5 Gm Tube) 15 gm PO PRN PRN; Protocol PRN Reason: Hypoglycemia Ceftriaxone Sodium (Rocephin 1 Gm/Ns 50 Ml) 1 gm in 50 mls @ 100 mls/hr IVPB Q24H [facility] Last Infusion: 05/07/24 06:06 Dose: Infused Dextrose (Dextrose 5% 1,000 Ml) 1,000 mls @ 100 mls/hr IVPB PRN PRN; Protocol PRN Reason: Hypoglycemia Insulin Aspart (Insulin Aspart (*Bkc) 100 Units/Ml) 1 - 3 units SUB-Q HS [facility]; Protocol Last Admin: 05/06/24 20:26 Dose: Not Given Insulin Aspart (Insulin Aspart (*Bkc) 100 Units/Ml) 2 - 5 units SUB-Q TIDWM SC H; Protocol Last Admin: 05/07/24 11:58 Dose: Not Given Insulin Glargine (Insulin Glargine (*Bkc) 100 Units/Ml) 20 units SUB-Q QAM [facility] Last Admin: 05/07/24 08:25 Dose: Not Given Ipratropium Herald (Ipratropium Nasal [place] 0.03% 15 Ml Bottle) 2 spray NASAL DAILY PRN PRN Reason: nasal drainage Lisinopril (Lisinopril 10 Mg Tablet) 10 mg PO DAILY [facility] Last Admin: 05/07/24 08:26 Dose: Not Given Melatonin (Melatonin 3 Mg Tablet) 6 mg PO HS [facility] Last Admin: 05/06/24 20:15 Dose: 6 mg Memantine (Memantine 10 Mg Tablet) 10 mg PO BID [facility] Last Admin: 05/07/24 08:26 Dose: Not Given Metformin HCl (Metformin Hcl 500 Mg Tablet) 1,000 mg PO BID [facility] Last Admin: 05/07/24 08:26 Dose: Not Given Morphine Sulfate (Morphine Sulfate (*Crx) 2 Mg/Ml Inj) 2 mg IV PUSH Q6HR PRN PRN Reason: Pain Rated 7-10 Last Admin: 05/04/24 18:57 Dose: 2 mg Non-Formulary Medication (Testosterone) 0 mg TOPICAL HS [facility] Stop: 06/03/24 20:59 Oxybutynin Chloride (Oxybutynin Chloride 5 Mg Tablet) 5 mg PO TID PRN PRN Reason: Abdominal Cramping Last Admin: 05/07/24 13:44 Dose: 5 mg Simvastatin (Simvastatin 20 Mg Tablet) 20 mg PO DAILY [facility] Last Admin: 05/07/24 08:26 Dose: Not Given Sitagliptin Phosphate (Sitagliptin Phosphate 100 Mg Tablet) 100 mg BY MOUTH DAILY [facility] Last Admin: 05/07/24 08:26 Dose: Not Given Transfer Discharge Sum: Hosp Hospital Course Hospital course: Ruben Salguero is a 69 year old male Time Spent with Patient Time attestation: Total time spent providing and/or coordinating transfer services: DS: Data Data Completed and Pending Labs on day of discharge: Labs from last 24 hours 05/07/24 05/07/24 05/07/24 11:37 07:47 05:53 WBC 8.0 RBC 4.20 L Hgb 12.7 L Hct 39.0 L MCV 92.9 MCH 30.2 MCHC 32.6 RDW 13.2 Plt Count 246 MPV 10.5 H Sodium 139 Potassium 4.2 Chloride 104 Carbon Dioxide 26 Anion Gap 9 BUN 22 H Creatinine 1.60 H Estim Creat Clear Calc 41 Estimated GFR 43 L Glucose 97 POC Capillary Glucose 107 H 98 Calcium 8.8 Magnesium 2.1 05/06/24 05/06/24 20:24 16:51 WBC RBC Hgb Hct MCV MCH MCHC RDW Plt Count MPV Sodium Potassium Chloride Carbon Dioxide Anion Gap BUN Creatinine Estim Creat Clear Calc Estimated GFR Glucose POC Capillary Glucose 167 H 109 H Calcium Magnesium
[2024-05-07 16:49] LABS: Glucose Point of Care 91 mg/dl (65-105)
[2024-05-07] MEDS: metFORMIN HCL 500 MG TABLET 1000 MG PO (17:13)
[2024-05-07] MEDS: MEMANTINE 10 MG TABLET PO (17:13)
[2024-05-07] MEDS: MELATONIN 3 MG TABLET 6 MG PO (19:59)
[2024-05-07] MEDS: DONEPEZIL HCL 10 MG TABLET PO (19:59)
[2024-05-07] MEDS: AZELASTINE HCL NASAL 0.1% 137 MCG/SPR 30 ML BTL 2 SPRAY NASAL (20:02)
[2024-05-07 21:06] LABS: Glucose Point of Care 149 mg/dl (65-105)
[2024-05-07 22:00] VITALS: BP 133/69; PULSE 62; RESP 20; TEMP 36.4; O2SAT 99
[2024-05-08] MEDS: ACETAMINOPHEN 325 MG TABLET 650 MG PO ×2 (01:08→08:07)
[2024-05-08] MEDS: oxyBUTYnin CHLORIDE 5 MG TABLET PO (04:30)
[2024-05-08 06:00] VITALS: BP 129/63; PULSE 57; RESP 16; TEMP 36.7; O2SAT 99
--- NOTE | 2024-05-08 06:20 | PC.NURSE ---
report called to Regina LUTZ @ [facility].
[2024-05-08 06:34] LABS: Hematocrit 37.6 % (42.0-52.0); Hemoglobin 12.6 g/dL (14.0-18.0); Mean Corpuscular HGB Conc 33.5 g/dl (32-36); Mean Corpuscular Hemoglobin 30.6 pg (26-34); Mean Corpuscular Volume 91.3 fl (80-100); Mean Platelet Volume 10.3 fl (7.4-10.4); Platelet Count Result 240 k/mm3 (150-375); Red Blood Count 4.12 M/mm3 (4.6-6.20); Red Cell Distribution Width 12.9 % (11.5-14.5); White Blood Count 7.5 K/mm3 (4.5-10.0)
[2024-05-08 06:45] LABS: Anion Gap 12 mmol/L (4-12); Blood Urea Nitrogen 23 mg/dL (9-20); Calcium 8.7 mg/dL (8.4-10.2); Carbon Dioxide 20 mmol/L (22-30); Chloride 105 mmol/L (98-107); Estimated CRCL calculation 49 ml/min; Estimated Glomerular Filt Rate 53; Glucose 110 mg/dL (65-110); Potassium 3.8 mmol/L (3.4-5.0); Sodium 137 mmol/L (137-145)
[2024-05-08 07:50] LABS: Glucose Point of Care 101 mg/dl (65-105)
[2024-05-08] MEDS: SITagliptin PHOSPHATE 100 MG TABLET BY MOUTH (08:07)
[2024-05-08] MEDS: SIMVASTATIN 20 MG TABLET PO (08:07)
[2024-05-08] MEDS: MEMANTINE 10 MG TABLET PO (08:07)
[2024-05-08] MEDS: metFORMIN HCL 500 MG TABLET 1000 MG PO (08:07)
[2024-05-08] MEDS: EMPAGLIFLOZIN 25 MG TABLET BY MOUTH (08:07)
[2024-05-08] MEDS: lisinopriL 10 MG TABLET PO (08:07)
[2024-05-08] MEDS: INSULIN GLARGINE (*BKC) 100 UNITS/ML 20 UNITS SUB-Q (08:09)
== END 2024-05-08 09:20 | disposition short-term general hospital (02) | DRG 696 ==
LOC: ANHED 05:05 → ANH3MEDSUR 06:38
PROVIDERS: Admitting Provider Internal Medicine; Emergency Provider Emergency Medicine; PCP Family Medicine Adolescent Medicine; Visit Provider Family Medicine
DX: R31.0 Gross hematuria (principal); N28.89 Other specified disorders of kidney and ureter; E78.5 Hyperlipidemia, unspecified; E11.9 Type 2 diabetes mellitus without complications; F03.A0 Unspecified dementia, mild, without behavioral disturbance, psychotic disturbance, mood disturbance, and anxiety; G47.33 Obstructive sleep apnea (adult) (pediatric); I10 Essential (primary) hypertension; N25.9 Disorder resulting from impaired renal tubular function, unspecified; N20.0 Calculus of kidney; Z79.84 Long term (current) use of oral hypoglycemic drugs; Z79.4 Long term (current) use of insulin
CPT/HCPCS: 36415; 74176; 74178; 76857; 80048; 80053; 81001; 82948; 83735; 85014; 85018; 85025; 85027; 85610; 85730; 87086; 96365; 96375; 99285; A9270; G0378; J0696; J1815; J2270; Q9967

== ENCOUNTER 2024-07-25 09:00 | Outpatient (CLI) | payer MEDICARE, OTHER, SELFPAY ==
--- NOTE | ~2024-07-25 | XR_ITS ---
EXAMINATION: XR chest 2V 07/25/2024 09:16 INDICATION: Renal cell carcinoma PROCEDURE: 2 view chest COMPARISON: No prior studies for comparison. FINDINGS: The lungs are clear. The cardiomediastinal silhouette is within normal limits. There are no pleural effusions. There is no pneumothorax suspected. There are calcified granulomas in both gautam ngs. Mild thoracic spondylosis. IMPRESSION: 1: NO ACUTE CARDIOPULMONARY DISEASE. Reviewed, dictated and finalized at location A.
--- NOTE | ~2024-07-25 | CT_ITS ---
CT of the Abdomen and Pelvis: Indication: Renal cell carcinoma Technique: 2.5 mm axial scans were obtained through the abdomen and pelvis following intravenous adm inistration of 100 cc of Omnipaque 350. Dose reduction technique was used on this scan by utilizing a utomated exposure control and iterative reconstruction technique. The dose-length product (DLP) was 7 51.38 mGy-cm. COMPARISON: 05/07/2024 Findings: Scans through the lung bases demonstrates stable 3 mm left lower lobe pulmonary nodule. The liver, spleen, pancreas, gallbladder, adrenals and right kidney are within normal limits. Status post left nephrectomy. No evidence of aortic aneurysm. No lymphadenopathy. No bowel obstruction or bowel wall thickening. There is no evidence to suggest acute appendicitis. Images through the pelvis were performed. Urinary bladder unremarkable. Prostate gland mildly enlarge d. No pelvic mass evident. No ascites. Impression: No evidence for active malignancy or metastatic disease. Status post left nephrectomy. Reviewed, dictated and finalized at [facility]. Impression: No evidence for active malignancy or metastatic disease. Status post left nephrectomy.
--- OUTSIDE RECORDS SUMMARY | 2024-07-25 09:08 | XMS_ITS | Encounter Summary ---
Author Organization [facility] Address [address] [place] [address] Phone Care Team Providers Care Community Outreach Coordinator Name Role Phone Antonio Peña MD Primary Care Prov ider Sandro Farris MD Unavailable [phone] Diana Fogn MD Unavailable [phone] Yaquelin Murillo MD PhD Unavailable [phone] Kali Lewis MD Unavailable [phone] Encounter Details Date Type Department Care Team (Latest Contact Info) Description 08/06/2021 Orders Only [facility] SLEEP Scanning, Provider Social History Tobacco Use Types Packs/Day Years Used Date Smoking Tobacco: Former Smokeless Tobacco: Never Sex and Gender Information Value Date Recorded Sex Assigned at Not on file 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 Gender Identity Not on file Sexual Orientation Not on file documented as of this encounter Plan of Treatment Not on file documented as of this encounter Procedures Procedure Name Priority Date/Time Associated Diagnosis Comments SLEEP LAB/STUDY - RESULT 08/06/2021 5:10 PM CDT documented in this encounter Results * SLEEP LAB/STUDY - RESULT (08/06/2021 5:10 PM CDT) us Provider Scanning Final Result documented in this encounter Visit Diagnoses Not on filedocumented in this encounter Care Teams Community Outreach Coordinator Relationship Specialty Start Date End Date Antonio Peña MD [address] [place] [address] PCP - General 10/18/16 Sandro Farris MD [address] [place] [address] Consulting Physician Urology 01/30/18 Diana Fong MD [address] [place] [address] Referring Physician Endocrinology Diabetes & Metabolism 01/30/18 Yaquelin Murillo MD PhD [facility] [address] [place] [address] Referring Physician Neurology 02/06/19 [place] [address] [place] [address] Consulting Physician Urology 05/11/24 documented as of this encounter
--- OUTSIDE RECORDS SUMMARY | 2024-07-25 09:08 | XMS_ITS | Clinical Summary ---
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
--- OUTSIDE RECORDS SUMMARY | 2024-07-25 09:09 | XMS_ITS | Clinical Summary ---
Author Organization [facility] Address [address] [place] [address] Care Team Providers Care 911 Emergency Services Dispatcher Name Role Phone Antonio Peña MD Primary Care Prov ider Sandro Farris MD Unavailable [phone] Diana Fong MD Unavailable [phone] Yaquelin Murillo MD PhD Unavailable [phone] Kali Lewis MD Unavailable [phone] Allergies Active Allergy Reactions Criticality Noted Date Comments Liraglutide Stomach upset Low Reaction: GI upset, Medications blood glucose diagnostic strip by in vitro route. Testing twice daily 6 Active lancets 30 gauge misc USE 1-2 TIMES DAILY 6 Active BD LUER-NURYS SYRINGE 3 mL 21 gauge x 1 1/2 syringe U ONCE A WEEK UTD PRN 3 8 Active metFORMIN (GLUCOPHAGE) 1,000 mg tabletIndications: Type 2 diabetes mellitus with hyperglycemia, without long-term current use of insulin (HCC) Take 1 tablet (1,000 mg total) by mouth 2 (two) times a day 60 tablet 3 Active testosterone 20.25 mg/1.25 gram (1.62 %) gel in metered-dose pump APPLY 2 PUMPS ON THE SKIN DAILY 3 Active simvastatin (ZOCOR) 20 mg tabletIndications: Mixed hyperlipidemia TAKE 1 TABLET DAILY 90 tablet 3 3 Active lisinopriL (PRINIVIL,ZESTRIL) 10 mg tabletIndications: Mixed hyperlipidemia,Typ e 2 diabetes mellitus with hyperglycemia, without long-term current use of insulin (HCC) TAKE 1 TABLET IN THE MORNING 90 tablet 3 3 Active pen needle, diabetic (BD Daniella 2nd Gen Pen Needle) 32 gauge x needleIndications: Type 2 diabetes mellitus with hyperglycemia, without long-term current use of insulin (HCC) Use with insulin once daily 60 each 1 4 Active donepeziL (ARICEPT) 10 mg tablet Take 1 tablet (10 mg total) by mouth nightly 5 Active memantine (NAMENDA) 10 mg tablet Take 1 tablet (10 mg total) by mouth 2 (two) times a day 5 Active melatonin 5 mg tablet 1 tablet (5 mg total) nightly Active azelastine (ASTELIN) 137 mcg (0.1 %) nasal spray Administer 2 sprays into each nostril nightly Use in each nostril as directed Active ipratropium (ATROVENT) 21 mcg (0.03 %) nasal spray Administer 2 sprays into each nostril daily as needed for rhinitis Active empagliflozin-sarah gliptin 25-5 mg tablet Take 1 tablet by mouth daily Active insulin degludec (TRESIBA) 200 unit/mL (3 mL) pen for injection Inject 0.1 mL (20 Units total) under the skin every morning Active acetaminophen 500 mg capsuleIndications :Pain Take 2 capsules (1,000 mg total) by mouth every 6 (six) hours 5 Active oxyCODONE (ROXICODONE) 5 mg immediate release tabletIndications: Pain Take 1 tablet (5 mg total) by mouth every 4 (four) hours as needed for pain 20 tablet 5 Active Active Problems Problem Noted Date Diagnosed Date Penis pain 05/08/2024 Primary hypertension 05/08/2024 Assessment & Plan (05/09/2024 12:48 PM CDT): BP controlled. ACEi held. Alzheimer's dementia without behavioral disturba nce 05/08/2024 Assessment & Plan (05/09/2024 12:49 PM CDT): Cont Aricept, Namenda. Delirium precautions. Gross hematuria 05/08/2024 Assessment & Plan (05/10/2024 5:18 PM CDT): Records from [facility] reviewed. CT abdomen pelvis shows 7.4 cm enhancing mass in the left kidney, consistent with renal cell carcinoma. 2. Distended bladder with mild bilateral hydronephrosis and hydroureter. Heterogeneous attenuation material in the bladder consistent with hematoma. Renal mass, left 05/08/2024 Assessment & Plan (05/11/2024 5:29 PM CDT): Left kidney mass as noted no CT. Urology following. S/p L nephrectomy 05/10/24. CT Chest shows JORJE nodule 4mm. WBC 10->9. Hgb 11->12.3. Cr 1.18->1.28 Acute cystitis with hematuria 05/08/2024 Assessment & Plan (05/10/2024 5:17 PM CDT): Possible UTI. Has immunity to COVID-19 virus 10/08/2020 Overview (06/08/2021): Moderna x 3 Assessment & Plan (06/08/2021 8:08 AM CDT): Fully vaccinated Obstructive sleep apnea 05/03/2019 Assessment & Plan (05/09/2024 12:48 PM CDT): CPAP nightly. Hypersomnia 05/03/2019 Memory loss 01/30/2019 Assessment & Plan (06/11/2021 7:37 AM CDT): Managed by Neurology. He is not on any medication that would increase the risk of hypoglycemia Male hypogonadism 02/02/2018 Overview (02/02/2018): Managed by his urologist Assessment & Plan (07/13/2022 7:11 PM CDT): -Managed by urology -Recent testosterone labs were forwarded to Dr. Farris Assessment & Plan (06/11/2021 7:40 AM CDT): Managed by his urologist. Free testosterone level pending at the time of the visit Assessment & Plan (10/08/2020 3:12 PM CDT): Clinically stable and managed by his urologist. However, will check level. Assessment & Plan (08/30/2019 2:37 PM CDT): On testosterone therapy, managed by his urologist. Recent labs show good safety profile. Assessment & Plan (08/09/2018 2:10 PM CDT): Defer to Dr. Snyder. However, Hgb is high and I advised f/u with him about this. The free testosterone is a little on the high side, but within the normal range. 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 Assessment & Plan (07/12/2022 9:44 AM CDT): -Last lipid panel: TC: 127 Tri HDL: 45 LDL: 66 on 07/01/22 -Continue same medical management Assessment & Plan (06/11/2021 7:36 AM CDT): Continue statin, optimize glycemic control. Assessment & Plan (10/08/2020 2:19 PM CDT): Continue statin, optimize glycemic control. Assessment & Plan (03/12/2020 3:19 PM COLLOID MILL OPERATOR): Continue statin, optimize glycemic control Assessment & Plan (08/30/2019 2:37 PM CDT): Continue statin, optimize glycemic control Assessment & Plan (08/09/2018 2:06 PM CDT): Continue statin, optimize glycemic control Assessment & Plan (02/02/2018 9:50 AM COLLOID MILL OPERATOR): Continue statin, [place] 3. Recent LDL within goal Type 2 diabetes mellitus wit h hyperglycemia, with long-term current use of insulin 01/17/2018 Assessment & Plan (05/09/2024 12:48 PM CDT): Hold basal insulin. Cont SSI. Pt on CLD. Assessment & Plan (07/13/2022 7:13 PM CDT): -Currently taking basal insulin + oral agents -A1C on 07/01/22 was 6.9% -Will continue same medications for now -Cost may be an issue with Jardiance and Januvia; discussed alternative medications in the same classes -May consider DC of Januvia -Discussed diet and activity modifications. -Advised to call with any concerns/complaints regarding glucose readings -Eye exam is due and he was reminded to schedule follow up -Foot exam reveals no evidence of sensation loss Assessment & Plan (06/11/2021 7:36 AM CDT): Working with diet and exercise, but he needs to check his glucoses more often. Assessment & Plan (10/08/2020 2:18 PM CDT): Hemoglobin A1c is improving. Multiple medications with minimal hypoglycemia. Assessment & Plan (03/12/2020 3:18 PM COLLOID MILL OPERATOR): Glucoses higher overnight and lower during the day, so needs adjustments in his insulin within a good margin of safety. We will also try to get results of his recent labs from his PCP Assessment & Plan (08/30/2019 2:37 PM CDT): Overall improving, glucoses within a good margin of safety. We can continue current medication, for now Assessment & Plan (02/06/2019 1:49 PM COLLOID MILL OPERATOR): Glucoses a little high sometimes after meals, but generally within a good margin of safety. With his memory issues, it is best to not make any changes at this time Assessment & Plan (08/09/2018 2:05 PM CDT): Glucoses tend to be higher in the mornings and lower in the afternoons, so I would change the timing of his Levemir to suppertime. Need to maintain a good margin of safety Assessment & Plan (02/02/2018 9:48 AM COLLOID MILL OPERATOR): Glucoses appear to be okay, but he needs to check more often to maintain a good margin of safety. No change in therapy at this time otherwise Bunion 04/09/2015 Nocturia 04/07/2015 Oliguria 04/07/2015 Encounters Date Type Department Care Team Description 07/09/2024 11:57 AM CDT - 07/09/2024 11:59 PM CDT Hospital Encounter [facility] [address] [place] [id number] Discharge Disposition: Discharge to home or self care 07/09/2024 11:56 AM CDT - 07/09/2024 11:59 PM CDT Hospital Encounter [facility] ([facility]) [address] [place] [id number] Dementia, unspecified dementia severity, unspecified dementia type, unspecified whether behavioral, psychotic, or mood disturbance or anxiety (HCC) Discharge Disposition: Discharge to home or self care 05/10/2024 8:44 AM CDT Anesthesia Event [facility] Operating [facility] [place] [address] Shashank Barbosa MD 05/10/2024 8:00 AM CDT - 05/10/2024 12:00 PM CDT Surgery [facility] [address] [place] [phone] aKli Lewis MD Hand Assisted Laparoscopic Left Nephrectomy 05/10/2024 Telephone [facility] [address] [place] [address] [address] [place] [address] Joan Marrero 05/08/2024 10:28 AM CDT - 05/11/2024 4:28 PM CDT Hospital Encounter [facility] [address] [place] [address] Uyen Harrington MD Williams, Timothy John, MD Dehaan, MD Abida Dowd, MD Debbie Gutierrez, Kali Amos MD Renal mass, left [N28.89] (Primary Dx); Left renal mass Discharge Disposition: Discharge to home or self care from Last 3 Months Immunizations Immunization Administration Dates Next Due Influenza, Quadrivalent, Spl it, Preservative Free, Intramuscular 01/14/2017 Influenza, Trivalent, Preservative Free, Intramu scular 02/29/2016,11/28/2014 Surgical History Surgery Date Site/Laterality Comments SD XCAPSL CTRC RMVL INSJ IO LENS PROSTH W/O ECP Extracapsular Cataract Extract W/ Insert Intraocular Lens Prosthesis - OU (Added by TW Conv) Medical History Medical History Date Comments Personal history of other en docrine, nutritional and metabolic disease History of hypoglyce mena - (Added by TW Conv) History of recurrent pneumonia H istory of pneumonia - x2 (Added by TW Conv) Personal history of other di seases of the respiratory system History of acute bronchitis - (Added by TW Conv) Family History Medical History Relation Name Comments Diabetes type II Father Type 2 Diab etes Mellitus - (Added by TW Conv) Diabetes type II Maternal Grandmother Typ e 2 Diabetes Mellitus - (Added by TW Conv) Relation Name Status Comments Father Maternal Grandmother Social History Tobacco Use Types Packs/Day Years Used Date Smoking Tobacco: Former Smokeless Tobacco: Never Tobacco Cessation:Counseling Given: Not Answered [facility] Utilities Answer Date Recorded In the past 12 months has th e electric, gas, oil, or water company threatened to shut off services in your home? No 05/09/2024 Social Connection and Isolat ion Panel [NHANES] Answer Date Recorded In a typical week, how many times do you talk on the phone with family, friends, or neighbors? More than three times a week 05/09/2024 How often do you get togethe r with friends or relatives? More than three times a week 05/09/2024 How often do you attend chur ch or bahai services? More than 4 times per year 05/09/2024 Do you belong to any clubs o r organizations such as temple groups, unions, fraternal or athletic groups, or school groups? Yes 05/09/2024 How often do you attend meet ings of the clubs or organizations you belong to? More than 4 times per year 05/09/2024 Are you , , di vorced, , never , or living with a partner? 05/09/2024 AUDIT-C Answer Date Recorded Q1: How often do you have a drink containing alc ohol? 2-4 times a month 05/10/2024 Q2: How many drinks containi ng alcohol do you have on a typical day when you are drinking? 1 or 2 05/10/2024 Q3: How often do you have si x or more drinks on one occasion? Never 05/10/2024 Overall Financial Resource Strain (CARDIA) Answe r Date Recorded How hard is it for you to pa y for the very basics like food, housing, medical care, and heating? Not hard at all 05/09/2024 Hunger Vital Sign Answer Date Recorded Within the past 12 months, y ou worried that your food would run out before you got the money to buy more. Never true 05/10/19 25 Within the past 12 months, t he food you bought just didn't last and you didn't have money to get more. Never true 05/09/2024 PRAPARE - Transportation Answer Date Re corded In the past 12 months, has l ack of transportation kept you from medical appointments or from getting medications? No 04/28 In the past 12 months, has l ack of transportation kept you from meetings, work, or from getting things needed for daily living? No 05/09/2024 Housing Stability Vital Sign Answer Ubaldo e Recorded In the last 12 months, was t here a time when you were not able to pay the mortgage or rent on time? No 05/09/2024 In the past 12 months, how m any times have you moved where you were living? 0 05/09/2024 At any time in the past 12 m [facility], were you homeless or living in a half-way (including now)? No 05/09/2024 Personal Safety Answer Date Recorded Have you ever been in or are you currently in a harmful physical or emotional relationship or is someone making you feel afraid or unsafe? 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 MILL OPERATOR Gender Identity Not on file Sexual Orientation Not on file Obstetrics History Last Filed Vital Signs Vital Sign Reading Time Taken Comments Blood Pressure 138/70 05/11/2024 11:30 AM CDT Pulse 64 05/11/2024 11:30 AM CDT Temperature 36.5 C (97.7 F) 05/11/2024 11:30 AM CDT Respiratory Rate 18 05/11/2024 11:30 AM CDT Oxygen Saturation 99% 05/11/2024 11:30 AM CDT Inhaled Oxygen Concentration - - Weight 89.4 kg (197 lb) 05/08/2024 10:30 AM CDT Height 177.8 cm (5' 10) 05/08/2024 10:30 AM CDT Body Mass Index 28.27 05/08/2024 10:30 AM CDT Plan of Treatment Health Maintenance Due Date Last Done Comments Colon Cancer Screening-Colonoscopy 1956 Depression Screening 1956 Hepatitis C Screening 1956 Prostate Cancer Screening-PSA 1956 Dilated Eye Exam 1956 Foot Exam 1956 DTaP/Tdap/Td Vaccine (1 - Tdap) 1967 Hepatitis B Screening 1974 Pneumococcal vaccine 65+ (1 of 2 - PCV) 1975 Abdominal Aortic Aneurysm (A AA) Screen 2021 Well Visit 65+ 2021 Albumin Creatinine Ratio, Urine 10/01/2021 10/01/2020, 08/29/2019, 01/25/2018 Lipid Panel 07/02/2023 07/01/2022, 04/0 07/2021, 10/01/2020, Additional history exists Covid-19 Vaccine ( - 2023-2 5 season) 2023 12/28/2020, 05/22/2020, 04/24/2020 Influenza Vaccine (Season Ended) 2024 12/14/2020, 11/18/2019, 11/20/2018, Additional history exists Hemoglobin A1C 11/09/2024 05/09/2024, 05/0 05/2022, 06/09/2021, Additional history exists Fall Risk Assessment 05/11/2025 05/11/2024 eGFR 05/11/2025 05/11/2024, 03/1 04/2024, 05/09/2024, Additional history exists Zoster Vaccine Completed 05/11/2021, 02/01/2021 Procedures Procedure Name Priority Date/Time Associated Diagnosis Comments PET/CT AMYLOID BRAIN Schedule Routine, Read Routine (OP Routine) 07/09/2024 2:02 PM CDT Dementia, unspecified dementia severity, unspecified dementia type, unspecified whether behavioral, psychotic, or mood disturbance or anxiety (HCC) CBC WITHOUT DIFFERENTIAL Routine 05/11/2024 12:04 PM CDT POCT GLUCOSE DEVICE Routine 05/11/2024 12:03 PM CDT EGFR Routine 05/11/2024 11:59 AM CDT BASIC METABOLIC PANEL Routine 05/11/2024 11:59 AM CDT POCT GLUCOSE DEVICE Routine 05/11/2024 6 :45 AM CDT POCT GLUCOSE DEVICE Routine 05/10/2024 9 :03 PM CDT POCT GLUCOSE DEVICE Routine 05/10/2024 5 :48 PM CDT EGFR STAT 05/10/2024 1:13 PM CDT CBC WITHOUT DIFFERENTIAL STAT 05/10/2024 1:13 PM CDT BASIC METABOLIC PANEL STAT 05/10/2024 1:13 PM CDT POCT GLUCOSE DEVICE Routine 05/10/2024 1 :09 PM CDT SURGICAL PATHOLOGY Routine 05/10/2024 11:59 AM CDT Left renal mass SD AN PROCEDURE PLACEHOLDER Routine 05/10/2024 9:08 AM CDT SD AN ELECTIVE ENDOTRACHEAL AIRWAY Routine 05/10/2024 9:08 AM CDT FLEXIBLE CYSTOSCOPY 05/10/2024 8 :44 AM CDT Left renal mass LAPAROSCOPIC HAND ASSISTED NEPHRECTOMY 05/10/2024 8:44 AM CDT Left renal mass POCT GLUCOSE DEVICE Routine 05/10/2024 7 :06 AM CDT POCT GLUCOSE DEVICE Routine 05/09/2024 8 :22 PM CDT POCT GLUCOSE DEVICE Routine 05/09/2024 4 :22 PM CDT POCT GLUCOSE DEVICE Routine 05/09/2024 11:37 AM CDT POCT GLUCOSE DEVICE Routine 05/09/2024 6 :12 AM CDT EGFR Routine 05/09/2024 4:51 AM CDT DIFFERENTIAL AUTO Routine 05/09/2024 4:5 1 AM CDT HEMOGLOBIN A1C Routine 05/09/2024 4:51 AM CDT CBC WITH AUTO DIFFERENTIAL Routine 05/09/2024 4:51 AM CDT BASIC METABOLIC PANEL Routine 05/09/2024 4:51 AM CDT TYPE AND SCREEN Routine 05/09/2024 4:51 AM CDT POCT GLUCOSE DEVICE Routine 05/08/2024 9 :[address] CHEST WO CONTRAST IP Routine 05/08/2024 5:56 PM CDT POCT GLUCOSE DEVICE Routine 05/08/2024 4 :04 PM CDT B CHECK SAMPLE Routine 05/08/2024 3:46 PM CDT EGFR Routine 05/08/2024 3:46 PM CDT CBC WITHOUT DIFFERENTIAL Routine 05/08/2024 3:46 PM CDT COMPREHENSIVE METABOLIC PANEL Routine 05/08/2024 3:46 PM CDT POCT GLUCOSE DEVICE Routine 05/08/2024 11:[address] BODY OUTSIDE REFERENCE Routine 05/07/2024 12:[address] BODY OUTSIDE REFERENCE Routine 05/04/2024 12:00 AM COLLOID MILL OPERATOR US TRANSFER OF OUTSIDE FILMS Routine 05/04/2024 12:[address] BODY OUTSIDE REFERENCE Routine 05/03/2024 12:00 AM COLLOID MILL OPERATOR LIPID PANEL Routine 07/01/2022 9:59 AM CDT Type 2 diabetes mellitus with hyperglycemia, without long-term current use of insulin (HCC) Mixed hyperlipidemia ALBUMIN CREATININE RATIO, URINE Routine 10/01/2020 11:05 AM CDT Uncontrolled type 2 diabetes mellitus with hyperglycemia (HCC) from Last 3 Months or Most Recently Relevant to Health Maintenance Results * PET/CT Amyloid Brain (07/09/2024 2:02 PM CDT) Anatomical Region Laterality Modality Positron Emissio n Tomography (PET) 07/09/2024 2:21 PM CDT Impressions 07/09/2024 3:55 PM CDT Positive amyloid-PET study, 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 General comments on amyloid-PET interpretation: A negative amyloid-PET study indicates sparse to no neuritic plaques and is inconsistent with Alzheimer disease at the time of the study. A negative study reduces the likelihood that the patient's cognitive impairment is due to Alzheimer disease. A positive amyloid-PET study indicates moderate to frequent neuritic plaques which is the amount present in patients with Alzheimer disease. However, a positive amyloid-PET study does not establish the diagnosis of Alzheimer disease. Moderate to frequent neuritic plaques can also be present in patients with other neurological conditions as well as in older people with normal cognition. Dictated by: Michael Ralph MD The radiology attending physician has personally reviewed this study, and had reviewed and/or edited this written report and agrees with it. Electronically signed by: Sanjay Shen MD, Ph.D Narrative 07/09/2024 3:55 PM CDT EXAMINATION: BRAIN AMYLOID-PET/CT IMAGING DATE OF STUDY: 07/09/2024 SCANNER: [employer] (NV1). RADIOPHARMACEUTICAL: 11.85 mCi F-18 florbetapir i.v. HISTORY: 69-year-old man undergoing evaluation for cognitive impairment. TECHNIQUE: At 37 minutes after injection of tracer, non-contrast CT images of the head were obtained for attenuation correction and for fusion with emission PET images to allow for anatomical localization of PET findings. Standard emission PET imaging of the brain was then performed. The study was interpreted on the [employer] workstation. COMPARISON CT/MRI: None. FINDINGS: There is normal cortical-white matter contrast in the cerebellum. There is decreased cortical-white matter contrast involving the bilateral temporal, parietal, frontal lobes. Incidental CT findings: Biparietal atrophy, including the precuneus. Procedure Note Sanjay Lane MD PhD - 07/09/2024 EXAMINATION: BRAIN AMYLOID-PET/CT IMAGING DATE OF STUDY: 07/09/2024 SCANNER: [employer] (NV1). RADIOPHARMACEUTICAL: 11.85 mCi F-18 florbetapir i.v. HISTORY: 69-year-old man undergoing evaluation for cognitive impairment. TECHNIQUE: At 37 minutes after injection of tracer, non-contrast CT images of the head were obtained for attenuation correction and for fusion with emission PET images to allow for anatomical localization of PET findings. Standard emission PET imaging of the brain was then performed. The study was interpreted on the [employer] workstation. COMPARISON CT/MRI: None. FINDINGS: There is normal cortical-white matter contrast in the cerebellum. There is decreased cortical-white matter contrast involving the bilateral temporal, parietal, frontal lobes. Incidental CT findings: Biparietal atrophy, including the precuneus. 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 General comments on amyloid-PET interpretation: A negative amyloid-PET study indicates sparse to no neuritic plaques and is inconsistent with Alzheimer disease at the time of the study. A negative study reduces the likelihood that the patient's cognitive impairment is due to Alzheimer disease. A positive amyloid-PET study indicates moderate to frequent neuritic plaques which is the amount present in patients with Alzheimer disease. However, a positive amyloid-PET study does not establish the diagnosis of Alzheimer disease. Moderate to frequent neuritic plaques can also be present in patients with other neurological conditions as well as in older people with normal cognition. Dictated by: Michael Ralph MD The radiology attending physician has personally reviewed this study, and had reviewed and/or edited this written report and agrees with it. Electronically signed by: Sanjay Shen MD, Ph.D us Not In File Miscellaneous IMG PET PROCEDURES Fin al Result * (ABNORMAL) CBC without differential (05/11/2024 12:04 PM CDT) WBC 9.1 3.8 - 9.9 K/cumm Hgb 12.3(L) 13.0 - 17.5 g/dL [facility] Hct 38.6(L) 38.9 - 50.3 % [facility] Plt 277 150 - 400 K/cumm [facility] MPV 10.0 9.1 - 12.3 fL [facility] RBC 4.09(L) 4.30 - 5.80 M/cumm [facility] MCV 94.4 81.3 - 96.4 fL [facility] MCH 30.1 27.1 - 33.3 pg [facility] MCHC 31.9(L) 32.3 - 35.7 g/dL [facility] RDW CV 13.2 11.1 - 14.9 % [facility] RDW SD 45.0 35.7 - 48.1 fL [facility] NRBC abs 0.00 0.00 - 0.01 K/cumm [facility] Blood 05/11/2024 12:0 4 PM CDT 05/11/2024 12:04 PM CDT Kali Lewis MD LAB BLOOD ORDERABLES Fi nal Result Performing Organization Address [facility]/ZIP Co de Phone Number [facility] [address] Department of [employer] [place], [place] [id number] * POCT glucose (05/11/2024 12:03 PM CDT) Glucose, POC 141 70 - 199 mg/dL Comment: For Glucose values <35 mg/dl when Hematocrit is >60 mg/dl,the test may not accurately detect significant hypoglycemia,and testing in the Laboratory should be considered if clinically indicated. Blood 05/11/2024 12:0 3 PM CDT 05/11/2024 12:03 PM CDT Kali Lewis MD LAB POCT ORDERABLES - D EVICE Final Result Performing Organization Address [facility] Co de Phone Number [facility] [address] Department [employer] [address] * eGFR (05/11/2024 11:59 AM CDT) eGFR 63 >=60 mL/min/1. 73 m2 Comment: Interpretive Data Reference Interval Normal >/= 90 mL/min/1.73m2 Mildly decreased* 60 - 89 mL/min/1.73m2 Mildly to moderately decreased 45 - 59 mL/min/1.73m2 Moderately to severely decreased 30 - 44 mL/min/1.73m2 Severely decreased 15 - 29 mL/min/1.73m2 Kidney Failure < 15 mL/min/1.73m2 *Relative to young adult level Estimated glomerular filtration rate is determined by the 2020 CKD-EPI equation recommended by the [employer] (A Unifying Approach to GFR Estimation: Recommendations of the NKF-ASK Task Force on Reassessing the Inclusion of Race in Diagnosing Kidney Disease, JASN 2020). The CKD-EPI equation should not be used for patients with unstable renal function and has not been validated in children and those over 70. Current interpretive data was last reviewed 2020. Blood 05/11/2024 11:5 9 AM CDT 05/11/2024 12:04 PM CDT Kali Lewis MD LAB BLOOD ORDERABLES [facility] Result [facility] [address] Department [place] [address] * (ABNORMAL) Basic metabolic panel (05/11/2024 11:59 AM CDT) Sodium 138 135 - 145 mmol/L Potassium, pl 3.8 3.3 - 4.9 mmol/L [facility] Chloride 103 97 - 110 mmol/L [facility] CO2 21(L) 22 - 32 mmol/L [facility] Anion gap 14 2 - 15 mmol/L [facility] BUN 9 6 - 25 mg/dL [facility] Creatinine 1.24 0.80 - 1.30 mg/dL [facility] Glucose 160 70 - 199 mg/dL [facility] Comment: Interpretive Data Fasting glucose >/= 126 mg/dl is diagnostic for diabetes. Fasting is defined as no caloric intake for at least 8 hours. Fasting glucose between 100 mg/dl to 125 mg/dl is diagnostic of prediabetes. In a patient with classic symptoms of hyperglycemia or hyperglycemic crisis, a random glucose >/= 200 mg/dl is diagnostic for diabetes. In the absence of unequivocal hyperglycemia, results should be confirmed by repeat testing. The classification and Diagnosis of Diabetes Diabetes Care 2021; 46: S19-S40. Current interpretive data was last revised 2022. Calcium 8.8 8.5 - 10.3 mg/dL [facility] Blood 05/11/2024 11:5 9 AM CDT 05/11/2024 11:59 AM CDT Kali Lewis MD LAB BLOOD ORDERABLES Fi nal Result Performing Organization Address [facility] Co de Phone Number [facility] [address] [facility] [place] [address] * POCT glucose (05/11/2024 6:45 AM CDT) Glucose, POC 122 70 - 199 mg/dL Comment: For Glucose values <35 mg/dl when Hematocrit is >60 mg/dl,the test may not accurately detect significant hypoglycemia,and testing in the Laboratory should be considered if clinically indicated. Blood 05/11/2024 6:45 AM CDT 05/11/2024 6:45 AM CDT Kali Lewis MD LAB POCT ORDERABLES - D EVICE Final Result Performing Organization Address [facility] de Phone Number [facility] [address] [facility] [place] [address] * POCT glucose (05/10/2024 9:03 PM CDT) Glucose, POC 163 70 - 199 mg/dL Comment: For Glucose values <35 mg/dl when Hematocrit is >60 mg/dl,the test may not accurately detect significant hypoglycemia,and testing in the Laboratory should be considered if clinically indicated. Blood 05/10/2024 9:03 PM CDT 05/10/2024 9:03 PM CDT Kali Lewis MD LAB POCT ORDERABLES - D EVICE Final Result Performing Organization Address [facility] Co de Phone Number [facility] [address] [facility] [place] [address] * POCT glucose (05/10/2024 5:48 PM CDT) Glucose, POC 128 70 - 199 mg/dL Comment: For Glucose values <35 mg/dl when Hematocrit is >60 mg/dl,the test may not accurately detect significant hypoglycemia,and testing in the Laboratory should be considered if clinically indicated. Blood 05/10/2024 5:48 PM CDT 05/10/2024 5:48 PM CDT Kali Lewis MD LAB POCT ORDERABLES - D EVICE Final Result Performing Organization Address [facility] Co de Phone Number SD [facility] [address] Department [employer] [address] * eGFR (05/10/2024 1:13 PM CDT) eGFR 67 >=60 mL/min/1. 73 m2 Comment: Interpretive Data Reference Interval Normal >/= 90 mL/min/1.73m2 Mildly decreased* 60 - 89 mL/min/1.73m2 Mildly to moderately decreased 45 - 59 mL/min/1.73m2 Moderately to severely decreased 30 - 44 mL/min/1.73m2 Severely decreased 15 - 29 mL/min/1.73m2 Kidney Failure < 15 mL/min/1.73m2 *Relative to young adult level Estimated glomerular filtration rate is determined by the 2020 CKD-EPI equation recommended by the National Kidney Foundation (A Unifying Approach to GFR Estimation: Recommendations of the NKF-ASK Task Force on Reassessing the Inclusion of Race in Diagnosing Kidney Disease, JASN 2020). The CKD-EPI equation should not be used for patients with unstable renal function and has not been validated in children and those over 70. Current interpretive data was last reviewed 2020. Blood 05/10/2024 1:13 PM CDT 05/10/2024 1:33 PM CDT Kali Lewis MD LAB BLOOD ORDERABLES Fi nal Result Performing Organization Address [facility]/ZIP Co de Phone Number SD [facility] [address] Department [place] [address] * (ABNORMAL) CBC without differential (05/10/2024 1:13 PM CDT) WBC 10.5(H) 3.8 - 9.9 K/cumm Hgb 11.9(L) 13.0 - 17.5 g/dL [facility] Hct 36.6(L) 38.9 - 50.3 % [facility] Plt 241 150 - 400 K/cumm [facility] MPV 10.5 9.1 - 12.3 fL [facility] RBC 3.90(L) 4.30 - 5.80 M/cumm [facility] MCV 93.8 81.3 - 96.4 fL [facility] MCH 30.5 27.1 - 33.3 pg [facility] MCHC 32.5 32.3 - 35.7 g/dL [facility] RDW CV 13.4 11.1 - 14.9 % [facility] RDW SD 46.1 35.7 - 48.1 fL [facility] NRBC abs 0.00 0.00 - 0.01 K/cumm [facility] Blood 05/10/2024 1:13 PM CDT 05/10/2024 1:33 PM CDT us Kali Lewis MD LAB BLOOD ORDERABLES nal Result [facility] [address] Department [place] [address] * (ABNORMAL) Basic metabolic panel (05/10/2024 1:13 PM CDT) Sodium 139 135 - 145 mmol/L Potassium, pl 4.3 3.3 - 4.9 mmol/L [facility] Chloride 106 97 - 110 mmol/L [facility] CO2 17(L) 22 - 32 mmol/L [facility] Anion gap 16(H) 2 - 15 mmol/L [facility] BUN 12 6 - 25 mg/dL [facility] Creatinine 1.18 0.80 - 1.30 mg/dL [facility] Glucose 143 70 - 199 mg/dL [facility] Comment: Interpretive Data Fasting glucose >/= 126 mg/dl is diagnostic for diabetes. Fasting is defined as no caloric intake for at least 8 hours. Fasting glucose between 100 mg/dl to 125 mg/dl is diagnostic of prediabetes. In a patient with classic symptoms of hyperglycemia or hyperglycemic crisis, a random glucose >/= 200 mg/dl is diagnostic for diabetes. In the absence of unequivocal hyperglycemia, results should be confirmed by repeat testing. The classification and Diagnosis of Diabetes Diabetes Care 2021; 46: S19-S40. Current interpretive data was last revised 2022. Calcium 8.5 8.5 - 10.3 mg/dL [facility] Blood 05/10/2024 1:13 PM CDT 05/10/2024 1:33 PM CDT Kali Lewis MD LAB BLOOD ORDERABLES Fi nal Result Performing Organization Address [facility] Co de Phone Number [facility] [address] Department [place] [address] * POCT glucose (05/10/2024 1:09 PM CDT) Glucose, POC 130 70 - 199 mg/dL Comment: For Glucose values <35 mg/dl when Hematocrit is >60 mg/dl,the test may not accurately detect significant hypoglycemia,and testing in the Laboratory should be considered if clinically indicated. Blood 05/10/2024 1:09 PM CDT 05/10/2024 1:09 PM CDT Kali Lewis MD LAB POCT ORDERABLES - D EVICE Final Result Performing Organization Address [facility]/ZIP Co de Phone Number [facility] [address] Department [place] [address] * Surgical pathology (05/10/2024 11:59 AM CDT) Tissue specimen (specimen) (Kidney, total nephrectomy) 05/10/2024 11:59 AM CDT Comment:Placed in formalin i n lab following procedure Narrative PATHOLOGY [facility] - 05/16/2024 1:27 PM CDT [address] [address] Tele: Carli Choi MD - Snapper On Note to Patients: This report may contain a detailed description of human tissue sent by a health care provider to the laboratory for pathologic evaluation. The content of this report is essential for diagnosis and may provide important critical findings. This information may be unfamiliar to patients to review without a medical professional present. It is advised that the patient review this report in the presence of a health care provider who can answer questions and explain the details. SURGICAL PATHOLOGY REPORT Patient Name: RUBEN RAPHAEL Address: [address] [place] [address] Gender: M : 1955 (Age: 69) Service: Surgery Location: [place] [address], Hospital #: [id number] Patient Type: [facility] INPATIENT Taken: 05/10/2024 Received 05/10/2024 Reported: 05/16/2024 Physician(s): Sahil Thornton M.D. 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 Report Reviewed and Electronically Signed By Felix Nieto M.D. SPECIMEN TYPE: A: LEFT KIDNEY CLINICAL IMPRESSION AND HISTORY: Left renal mass GROSS DESCRIPTION: Received in formalin labeled with RUBEN RAPHAEL and left kidney is a 1027 gram left nephrectomy specimen, including kidney (14.3 x 6.8 x 6.8 cm) and surrounding perirenal fat measuring in thickness from 1.3 cm to 8.7 cm. There is no adrenal gland. Extending from the renal pelvis is a ureter (7 x 0.6 cm), renal vein (1.1 x 1 cm) and renal artery (0.9 x 0.4 cm). The specimen is marked with silver nitrate. In the lower pole is a circumscribed variegated yellow red-wright mass (8.1 x 6.6 x 6.2 cm). The mass pushes against the renal capsule but does not appear to penetrate the capsule or invade into the perirenal or perihilar fat. The mass does not involve the renal pelvis, renal vein and renal artery. It is located approximately 1.5 cm from the vascular margin and 8.6 cm from the ureter margin. The remainder of the renal cortex is wright-brown with a well-defined cortical medullary junction. The pelvis and calyces are covered by smooth, glistening mucosa. There are no gross lymph nodes. [employer] Mechanic sections are submitted as follows: A1 - Renal vein, renal artery and ureter margins six cassettes MET undo, A2-A7 - Mass in relation to perihilar fat, A8-A11 - Mass in relation to capsule, A12 - Unremarkable pelvis, A13 - Unremarkable kidney and multiple possible lymph nodes ,CUH MICROSCOPIC DESCRIPTION: Microscopic examination supports the above captioned diagnosis. Several immunohistochemical stains were performed to rule out the possibility of chromophobe carcinoma. The tumor cells are diffusely positive for CA IX. They are focally positive for vimentin. CK7 is positive only in rare cells. CD117 is negative. The staining pattern is consistent with clear cell renal cell carcinoma. KIDNEY: Nephrectomy SPECIMEN Procedure: Radical nephrectomy Specimen Laterality: Left TUMOR Tumor Focality: Unifocal Tumor Site: Lower pole Tumor Size: Greatest Dimension (Centimeters) - 8.1 cm Histologic Type: Clear cell renal cell carcinoma Histologic Grade (WHO / ISUP): G2, nucleoli conspicuous and visible at 400x magnification, not prominent at 100x magnification Tumor Extent: Extends into perinephric tissue (beyond renal capsule), Extends into renal sinus Histologic Features: Sarcomatoid or rhabdoid features not identified Tumor Necrosis: Not identified Lymphatic and / or Vascular Invasion: Not identified MARGINS Margin Status: All margins negative for invasive carcinoma REGIONAL LYMPH NODES Regional Lymph Node Status: Not applicable (no regional lymph nodes submitted or found) DISTANT METASTASIS Distant Site(s) Involved: Cannot be determined pTNM CLASSIFICATION (AJCC 8th Edition) Reporting of pT, pN, and (when applicable) pM categories is based on information available to the pathologist at the time the report is issued. As per the AJCC (Chapter 1, 8th Ed.) it is the managing physician's responsibility to establish the final pathologic stage based upon all pertinent information, including but potentially not limited to this pathology report. pT Category: pT3a pN Category: pN not assigned (no nodes submitted or found) ADDITIONAL FINDINGS Additional Findings in Kidney: No significant pathologic change identified CAP VERSION: Kidney 4.2.0.0 Clerical Data Follows A; 86122, 66590, 30428(3) REPORT IMAGES AND/OR SCANNED DOCUMENTS ONLY VIEWABLE IN PDF FORMAT The immunohistochemical test(s) cited in this report, if any, was developed and its performance characteristics determined by [facility] Pathology Department. It has not been cleared or approved by the U.S. Food and Drug Administration. The FDA has determined that such clearance or approval is not necessary. This test is used for clinical purposes. It should not be regarded as investigational or for research. [facility] is certified under the Clinical Laboratory Improvement Amendments of 1988 (CLIA) as qualified to perform high complexity testing. Immunostains were performed on formalin-fixed paraffin embedded tissue using a polymer diaminobenzidine chromogen detection system. Antibodies used may include clone SP1 (rabbit monoclonal, estrogen receptor), clone 1E2 (rabbit monoclonal progesterone receptor), Ki-67 (rabbit monoclonal, 30-9), CD117 (rabbit polyclonal, c-kit), and anti-Her-2/lashonda (4B5) (rabbit monoclonal primary antibody). In the event that immunohistochemistry or special stains have been performed, attending physician has confirmed appropriateness of controls. Frozen section, operating room consultation, gross examination and dissection, and case sign out may have been performed in part or completely in the following laboratories: [facility], [address] [place] [address], [address] [place] [id number]. us Kali Lewis MD LAB PATHOLOGY ORDERABLE S Final Result PATHOLOGY [facility] Laboratory Receiving [address] [place] [address] * SD AN ELECTIVE ENDOTRACHEAL AIRWAY, SD AN PROCEDURE PLACEHOLDER (05/10/2024 9:08 AM CDT) Narrative Carolina Murphy CRNA - 05/10/2024 9:08 AM CDT Carolina Murphy CRNA 05/10/2024 9:09 AM Airway Patient location: OR Urgency: elective Date/time: 05/10/2024 8:53 AM Indications for airway management: anesthesia Difficult airway: no Staff: Placed by: WELDING PROCESS ENGINEER: Carolina Murphy CRNA Emergent airway documentation: Risks and benefits discussed: yes Consent obtained: yes Consent given by: patient Airway prep: Preoxygenated: yes Patient position: sniffing Mask difficulty assessment: 2 - vent by mask + OA or adjuvant Sedation level during airway: GA Final airway details: Final airway type: endotracheal airway Tube type: ETT ETT size: 8.0 mm Cuffed: yes Technique used for successful ETT placement: video laryngoscopy Devices/Methods used in placement: stylet Insertion site: oral Video blade type: Patricia Blade size: 4 Cormack-Lehane (video): grade I - full view of glottis Cuff inflated with: air ETT to lips: 22 cm Placement verified by: auscultation and CO2 detection Airway secured with: silk tape Number of attempts: 1 Additional comments: Atraumatic intubation, dentition and lips unchanged from baseline. Of note, chipped #8 present prior to airway instrumentation. us Shashank Barbosa MD ANESTHESIA ORDERABLES Final Result * POCT glucose (05/10/2024 7:06 AM CDT) Glucose, POC 126 70 - 199 mg/dL Comment: For Glucose values <35 mg/dl when Hematocrit is >60 mg/dl,the test may not accurately detect significant hypoglycemia,and testing in the Laboratory should be considered if clinically indicated. Blood 05/10/2024 7:06 AM CDT 05/10/2024 7:06 AM CDT Ravinder Tai MD LAB POCT ORDERABLES - DEVICE Final Result [facility] [address] Department [place] [address] * POCT glucose (05/09/2024 8:22 PM CDT) Glucose, POC 101 70 - 199 mg/dL Comment: For Glucose values <35 mg/dl when Hematocrit is >60 mg/dl,the test may not accurately detect significant hypoglycemia,and testing in the Laboratory should be considered if clinically indicated. Blood 05/09/2024 8:22 PM CDT 05/09/2024 8:22 PM CDT Ravinder Tai MD LAB POCT ORDERABLES - DEVICE Final Result Performing Organization Address [facility] de Phone Number [facility] [address] [facility] [place] [address] * POCT glucose (05/09/2024 4:22 PM CDT) Glucose, POC 84 70 - 199 mg/dL Comment: For Glucose values <35 mg/dl when Hematocrit is >60 mg/dl,the test may not accurately detect significant hypoglycemia,and testing in the Laboratory should be considered if clinically indicated. Blood 05/09/2024 4:22 PM CDT 05/09/2024 4:22 PM CDT Result [facility] Ravinder Tai MD LAB POCT ORDERABLES - DEVICE Final Result Performing Organization Address [facility] de Phone Number [facility] [address] [facility] [place] [address] * POCT glucose (05/09/2024 11:37 AM CDT) Glucose, POC 78 70 - 199 mg/dL Comment: For Glucose values <35 mg/dl when Hematocrit is >60 mg/dl,the test may not accurately detect significant hypoglycemia,and testing in the Laboratory should be considered if clinically indicated. Blood 05/09/2024 11:3 7 AM CDT 05/09/2024 11:37 AM CDT us Ravinder Tai MD LAB POCT ORDERABLES - DEVICE Final Result Performing Organization Address [facility] Co de Phone Number [facility] [address] [facility] [place] [address] * POCT glucose (05/09/2024 6:12 AM CDT) Glucose, POC 82 70 - 199 mg/dL Comment: For Glucose values <35 mg/dl when Hematocrit is >60 mg/dl,the test may not accurately detect significant hypoglycemia,and testing in the Laboratory should be considered if clinically indicated. Blood 05/09/2024 6:12 AM CDT 05/09/2024 6:12 AM CDT Kumar Lopez MD LAB POCT ORDERABLES - DE VICE Final Result Performing Organization Address City/[facility]/ZIP Co de Phone Number SD [facility] [address] Department [place] [address] * eGFR (05/09/2024 4:51 AM CDT) Pathologist [facility] eGFR 60 >=60 mL/min/1. 73 m2 Comment: Interpretive Data Reference Interval Normal >/= 90 mL/min/1.73m2 Mildly decreased* 60 - 89 mL/min/1.73m2 Mildly to moderately decreased 45 - 59 mL/min/1.73m2 Moderately to severely decreased 30 - 44 mL/min/1.73m2 Severely decreased 15 - 29 mL/min/1.73m2 Kidney Failure < 15 mL/min/1.73m2 *Relative to young adult level Estimated glomerular filtration rate is determined by the 2020 CKD-EPI equation recommended by the National Kidney Foundation (A Unifying Approach to GFR Estimation: Recommendations of the NKF-ASK Task Force on Reassessing the Inclusion of Race in Diagnosing Kidney Disease, JASN 2020). The CKD-EPI equation should not be used for patients with unstable renal function and has not been validated in children and those over 70. Current interpretive data was last reviewed 2020. Blood 05/09/2024 4:51 AM CDT 05/09/2024 5:14 AM CDT us Gregor Almonte MD LAB BLOOD ORDERABLES Fi nal Result [facility] [address] Department [place] [address] * Differential, auto (05/09/2024 4:51 AM CDT) Neutrophil abs 4.6 1.5 - 6.5 K/cumm Imm gran abs 0.0 0.0 - 0.1 K/cumm [facility] Lymphocyte abs 1.6 0.8 - 3.3 K/cumm [facility] Monocyte abs 0.8 0.2 - 0.8 K/cumm [facility] Eosinophil abs 0.2 0.0 - 0.5 K/cumm [facility] Basophil abs 0.0 0.0 - 0.1 K/cumm [facility] Neutrophil pct 63.5 % [facility] Comment: Interpretive Data Percent cell count reference ranges are not reported, since discordance with absolute values may lead to misinterpretation of CBC data. Current Interpretive Data was last revised on 2017. Imm gran pct 0.6 % [facility] Comment: Interpretive Data Percent cell count reference ranges are not reported, since discordance with absolute values may lead to misinterpretation of CBC data. Current Interpretive Data was last revised on 2017. Lymphocyte pct 21.8 % [facility] Comment: Interpretive Data Percent cell count reference ranges are not reported, since discordance with absolute values may lead to misinterpretation of CBC data. Current Interpretive Data was last revised on 2017. Monocyte pct 10.5 % [facility] Comment: Interpretive Data Percent cell count reference ranges are not reported, since discordance with absolute values may lead to misinterpretation of CBC data. Current Interpretive Data was last revised on 2017. Eosinophil pct 3.3 % [facility] Comment: Interpretive Data Percent cell count reference ranges are not reported, since discordance with absolute values may lead to misinterpretation of CBC data. Current Interpretive Data was last revised on 2017. Basophil pct 0.3 % [facility] Comment: Interpretive Data Percent cell count reference ranges are not reported, since discordance with absolute values may lead to misinterpretation of CBC data. Current Interpretive Data was last revised on 2017. Blood 05/09/2024 4:51 AM CDT 05/09/2024 5:14 AM CDT Gregor Almonte MD LAB BLOOD ORDERABLES Fi nal Result Performing Organization Address [facility]/ZIP Co de Phone Number [facility] [address] [place] [address] * (ABNORMAL) CBC with auto differential (05/09/2024 4:51 AM CDT) WBC 7.2 3.8 - 9.9 K/cumm Hgb 12.2(L) 13.0 - 17.5 g/dL [facility] Hct 37.1(L) 38.9 - 50.3 % [facility] Plt 248 150 - 400 K/cumm [facility] MPV 10.3 9.1 - 12.3 fL [facility] RBC 4.05(L) 4.30 - 5.80 M/cumm [facility] MCV 91.6 81.3 - 96.4 fL [facility] MCH 30.1 27.1 - 33.3 pg [facility] MCHC 32.9 32.3 - 35.7 g/dL [facility] RDW CV 13.1 11.1 - 14.9 % [facility] RDW SD 43.8 35.7 - 48.1 fL [facility] NRBC abs 0.00 0.00 - 0.01 K/cumm [facility] Blood 05/09/2024 4:51 AM CDT 05/09/2024 5:14 AM CDT Gregor Almonte MD LAB BLOOD ORDERABLES Fi nal Result [facility] [address] [employer] [place], [place] [id number] * Type and screen (05/09/2024 4:51 AM CDT) ABO Rh O Positive Juany, indirect Negative [facility] Blood 05/09/2024 4:51 AM CDT 05/09/2024 5:13 AM CDT Narrative [facility] - 05/09/2024 5:54 AM CDT Has the patient had Daratumumab or Isatuximab in the past 6 months?->Unknown Kayla Hayes SENIOR DATASTAGE DEVELOPER LAB BLOOD BANK TEST ORDERABLES Final Result Performing Organization Address [facility] de Phone Number [facility] [address] [facility] [place] [address] * (ABNORMAL) Hemoglobin A1c (05/09/2024 4:51 AM CDT) Pathologist [facility] Hgb A1C 6.6(H) 4.0 - 5.6 % Estimated Average Glucose 143 mg/dL [facility] Comment: The ADA recommends reporting an estimated Average Glucose (eAG) with all Hemoglobin A1c results using the equation derived from a study of 507 normal and diabetic adults. Minority populations were underrepresented and children were not included. (Diabetes Care 31:7404-2091, 2008). The eAG is not equivalent to a fasting glucose. Blood 05/09/2024 4:51 AM CDT 05/09/2024 5:14 AM CDT Johann Mcginnis SENIOR DATASTAGE DEVELOPER LAB BLOOD ORDERABLES Final Result Performing Organization Address [facility] de Phone Number [facility] [address] [facility] [place] [address] * (ABNORMAL) Basic metabolic panel (05/09/2024 4:51 AM CDT) Sodium 142 135 - 145 mmol/L Potassium, pl 4.0 3.3 - 4.9 mmol/L [facility] Chloride 107 97 - 110 mmol/L [facility] CO2 18(L) 22 - 32 mmol/L [facility] Anion gap 17(H) 2 - 15 mmol/L [facility] BUN 20 6 - 25 mg/dL [facility] Creatinine 1.30 0.80 - 1.30 mg/dL [facility] Glucose 81 70 - 199 mg/dL [facility] Comment: Interpretive Data Fasting glucose >/= 126 mg/dl is diagnostic for diabetes. Fasting is defined as no caloric intake for at least 8 hours. Fasting glucose between 100 mg/dl to 125 mg/dl is diagnostic of prediabetes. In a patient with classic symptoms of hyperglycemia or hyperglycemic crisis, a random glucose >/= 200 mg/dl is diagnostic for diabetes. In the absence of unequivocal hyperglycemia, results should be confirmed by repeat testing. The classification and Diagnosis of Diabetes Diabetes Care 2021; 46: S19-S40. Current interpretive data was last revised 2022. Calcium 8.3(L) 8.5 - 10.3 mg/dL [facility] Blood 05/09/2024 4:51 AM CDT 05/09/2024 5:14 AM CDT us Gregor Almonte MD LAB BLOOD ORDERABLES Fi nal Result [facility] [address] Department [employer] [address] * POCT glucose (05/08/2024 9:33 PM CDT) [facility] Glucose, POC 98 70 - 199 mg/dL Comment: For Glucose values <35 mg/dl when Hematocrit is >60 mg/dl,the test may not accurately detect significant hypoglycemia,and testing in the Laboratory should be considered if clinically indicated. Blood 05/08/2024 9:33 PM CDT 05/08/2024 9:33 PM CDT us Kumar Lopez MD LAB POCT ORDERABLES - DE VICE Final Result [facility] [address] Department [employer] [address] * CT Chest WO Contrast (05/08/2024 5:56 PM CDT) Anatomical Region Laterality Modality Body N/A Computed Tomogra phy 05/09/2024 7:48 AM CDT Impressions 05/09/2024 7:48 AM CDT 4 mm left upper lobe nodule is indeterminate. No findings to suggest metastatic disease. Electronically signed by: Daron Amanda M.D. Narrative 05/09/2024 7:48 AM CDT EXAMINATION: Computed tomography of the chest without intravenous contrast HISTORY: Left renal mass. Staging. TECHNIQUE: Transaxial computed tomographic images of the chest were obtained without intravenous contrast according to the standard protocol. COMPARISON: None available FINDINGS: There is dependent subpleural scarring. Bilateral calcified granulomas. There is focal pleural scarring in the left upper lobe (series 3 image 40). A 4 mm left lower lobe nodule (series 3 image 62) is indeterminate. Coronary calcific effusion. Heart size normal. No pericardial effusion. Visualized portions of the upper abdomen demonstrate left hydronephrosis. Findings better characterized on dedicated exam. Multilevel degenerative disc disease. Procedure Note Daron Amanda MD - 05/09/2024 EXAMINATION: Computed tomography of the chest without intravenous contrast HISTORY: Left renal mass. Staging. TECHNIQUE: Transaxial computed tomographic images of the chest were obtained without intravenous contrast according to the standard protocol. COMPARISON: None available FINDINGS: There is dependent subpleural scarring. Bilateral calcified granulomas. There is focal pleural scarring in the left upper lobe (series 3 image 40). A 4 mm left lower lobe nodule (series 3 image 62) is indeterminate. Coronary calcific effusion. Heart size normal. No pericardial effusion. Visualized portions of the upper abdomen demonstrate left hydronephrosis. Findings better characterized on dedicated exam. Multilevel degenerative disc disease. IMPRESSION: 4 mm left upper lobe nodule is indeterminate. No findings to suggest metastatic disease. Electronically signed by: Daron Amanda M.D. Kayla Hayes NP IM CT PROCEDURES Final Result * POCT glucose (05/08/2024 4:04 PM CDT) Glucose, POC 121 70 - 199 mg/dL Comment: For Glucose values <35 mg/dl when Hematocrit is >60 mg/dl,the test may not accurately detect significant hypoglycemia,and testing in the Laboratory should be considered if clinically indicated. Blood 05/08/2024 4:04 PM CDT 05/08/2024 4:04 PM CDT us Kumar Lopez MD LAB POCT ORDERABLES - DE VICE Final Result Performing Organization Address [facility]/ZIP Co de Phone Number [facility] [address] Department [employer] [address] * (ABNORMAL) eGFR (05/08/2024 3:46 PM CDT) eGFR 58(L) >=60 mL/min/1. 73 m2 Comment: Interpretive Data Reference Interval Normal >/= 90 mL/min/1.73m2 Mildly decreased* 60 - 89 mL/min/1.73m2 Mildly to moderately decreased 45 - 59 mL/min/1.73m2 Moderately to severely decreased 30 - 44 mL/min/1.73m2 Severely decreased 15 - 29 mL/min/1.73m2 Kidney Failure < 15 mL/min/1.73m2 *Relative to young adult level Estimated glomerular filtration rate is determined by the 2020 CKD-EPI equation recommended by the National Kidney Foundation (A Unifying Approach to GFR Estimation: Recommendations of the NKF-ASK Task Force on Reassessing the Inclusion of Race in Diagnosing Kidney Disease, JASN 2020). The CKD-EPI equation should not be used for patients with unstable renal function and has not been validated in children and those over 70. Current interpretive data was last reviewed 2020. Blood 05/08/2024 3:46 PM CDT 05/08/2024 4:29 PM CDT us Gregor Almonte MD LAB BLOOD ORDERABLES Fi nal Result Performing Organization Address City/[facility]/ZIP Co de Phone Number [facility] [address] Department [place] [address] * Check Sample (05/08/2024 3:46 PM CDT) ABO Rh O Positive MBC HCLL OTHER 05/08/2024 3:46 PM CDT 05/08/2024 7:13 PM CDT Kumar Lopez MD LAB BLOOD ORDERABLES Fin al Result Performing Organization Address [facility] Co de Phone Number [facility] [address] Department of [employer] [place], [place] [id number] MBC * (ABNORMAL) CBC without differential (05/08/2024 3:46 PM CDT) Pathologist [facility] WBC 9.1 3.8 - 9.9 K/cumm Hgb 12.9(L) 13.0 - 17.5 g/dL [facility] Hct 39.1 38.9 - 50.3 % [facility] Plt 272 150 - 400 K/cumm [facility] MPV 10.7 9.1 - 12.3 fL [facility] RBC 4.23(L) 4.30 - 5.80 M/cumm [facility] MCV 92.4 81.3 - 96.4 fL [facility] MCH 30.5 27.1 - 33.3 pg [facility] MCHC 33.0 32.3 - 35.7 g/dL [facility] RDW CV 13.2 11.1 - 14.9 % [facility] RDW SD 44.3 35.7 - 48.1 fL [facility] NRBC abs 0.00 0.00 - 0.01 K/cumm [facility] Blood 05/08/2024 3:46 PM CDT 05/08/2024 4:29 PM CDT Gregor Almonte MD LAB BLOOD ORDERABLES Fi nal Result Performing Organization Address City/[facility]/ZIP Co de Phone Number [facility] [address] Department [place] [address] * (ABNORMAL) Comprehensive metabolic panel (05/08/2024 3:46 PM CDT) Sodium 134(L) 135 - 145 mmol/L Potassium, pl 3.9 3.3 - 4.9 mmol/L [facility] Chloride 99 97 - 110 mmol/L [facility] CO2 21(L) 22 - 32 mmol/L [facility] Anion gap 14 2 - 15 mmol/L [facility] BUN 21 6 - 25 mg/dL [facility] Creatinine 1.34(H) 0.80 - 1.30 mg/dL [facility] Glucose 107 70 - 199 mg/dL [facility] Comment: Interpretive Data Fasting glucose >/= 126 mg/dl is diagnostic for diabetes. Fasting is defined as no caloric intake for at least 8 hours. Fasting glucose between 100 mg/dl to 125 mg/dl is diagnostic of prediabetes. In a patient with classic symptoms of hyperglycemia or hyperglycemic crisis, a random glucose >/= 200 mg/dl is diagnostic for diabetes. In the absence of unequivocal hyperglycemia, results should be confirmed by repeat testing. The classification and Diagnosis of Diabetes Diabetes Care 202; 46: S19-S40. Current interpretive data was last revised 2022. Calcium 8.7 8.5 - 10.3 mg/dL [facility] Bilirubin, total 0.2 0.1 - 1.2 mg/dL [facility] Protein, pl 6.9 6.5 - 8.5 g/dL [facility] Albumin 3.9 3.5 - 5.0 g/dL [facility] Alk phos 51 40 - 130 Units/L [facility] ALT 12 7 - 55 Units/L [facility] AST 21 10 - 50 Units/L [facility] Blood 05/08/2024 3:46 PM CDT 05/08/2024 4:29 PM CDT us Gregor Almonte MD LAB BLOOD ORDERABLES Fi nal Result [facility] [address] Department [place] [address] * POCT glucose (05/08/2024 11:57 AM CDT) [facility] Glucose, POC 105 70 - 199 mg/dL Comment: For Glucose values <35 mg/dl when Hematocrit is >60 mg/dl,the test may not accurately detect significant hypoglycemia,and testing in the Laboratory should be considered if clinically indicated. Blood 05/08/2024 11:5 7 AM CDT 05/08/2024 11:57 AM CDT Result [facility] Gregor Almonte MD LAB POCT ORDERABLES - D EVICE Final Result Performing Organization Address [facility] de Phone Number [facility] [address] Department [place] [address] * CT Body Outside Reference (05/07/2024 12:00 AM CDT) Narrative RAD_[email or web address]_MB - 05/08/2024 11:26 AM CDT This order has been auto-finalized and does not contain a result. us Provider Transcribed Order IMG CT PROCEDURES Fin al Result Performing Organization Address [facility] de Phone Number [email or web address]_FILM_[facility] * CT Body Outside Reference (05/04/2024 12:00 AM COLLOID MILL OPERATOR) Narrative RAD_[email or web address]_FILM_MB - 05/08/2024 11:29 AM CDT This order has been auto-finalized and does not contain a result. us Provider Transcribed Order IMG CT PROCEDURES Fin al Result Performing Organization Address [facility] de Phone Number [email or web address]_[facility] * US Outside Reference (05/04/2024 12:00 AM COLLOID MILL OPERATOR) Narrative RAD_[email or web address]_FILM_MB - 05/08/2024 11:29 AM CDT This order has been auto-finalized and does not contain a result. us Provider Transcribed Order IMG US PROCEDURES Fin al Result Performing Organization Address [facility] de Phone Number RAD_[email or web address] * CT Body Outside Reference (05/03/2024 12:00 AM COLLOID MILL OPERATOR) Narrative RADMalinaPACS_OUTSIDE_FILM_[facility] - 05/08/2024 11:29 AM CDT This order has been auto-finalized and does not contain a result. us Provider Transcribed Order IMG CT PROCEDURES Fin al Result RAD_PACS_OUTSIDE_FILM_[facility] * Lipid panel (07/01/2022 9:59 AM CDT) Cholesterol 127 <200 mg/dL [facility] HDL 45 > OR = 40 mg/dL [facility] Triglycerides 84 <150 mg/dL [facility] LDL 66 mg/dL (calc) [facility] Comment: Reference range: <100 Desirable range <100 mg/dL for primary prevention; <70 mg/dL for patients with CHD or diabetic patients with > or = 2 CHD risk factors. LDL-C is now calculated using the Anjel-Ponce calculation, which is a validated novel method providing better accuracy than the Friedewald equation in the estimation of LDL-C. Anjel SS et al. TRINIDAD. 2013;310(19): 4297-5656 (http://education.MessageBunker/faq/TIN840) Chol/HDL ratio 2.8 <5.0 (calc) [facility] Non-HDL, (LDL+VLDL) 82 <130 mg/dL (calc) [facility] Comment: For patients with diabetes plus 1 major ASCVD risk factor, treating to a non-HDL-C goal of <100 mg/dL (LDL-C of <70 mg/dL) is considered a therapeutic option. Blood 07/01/2022 9:59 AM CDT 07/01/2022 10:05 AM CDT Narrative [facility] - 07/05/2022 3:06 PM CDT FASTING:YES PATIENT UNABLE TO VOID; ADVISED TO RETURN FOR COLLECTION. FASTING: YES us Geraldine Stanford SENIOR DATASTAGE DEVELOPER LAB BLOOD ORDERABLES Final Result [facility] [address] [place] [address] * Albumin Creatinine Ratio, Urine (10/01/2020 11:05 AM CDT) Creatinine, ur 37 20 - 320 mg/dL [facility] Microalbumin, ur 0.2 See Note: mg/dL [facility] Comment: Reference Range: Reference Range Not established Microalbumin/creat ratio 5 <30 mcg/mg creat [facility] Comment: The ADA defines abnormalities in albumin excretion as follows: Category Result (mcg/mg creatinine) Normal <30 Microalbuminuria 30-299 Clinical albuminuria > OR = 300 The ADA recommends that at least two of three specimens collected within a 3-6 month period be abnormal before considering a patient to be within a diagnostic category. Urine 10/01/2020 11:0 5 AM CDT 10/01/2020 11:07 AM CDT Narrative [facility] - 10/02/2020 2:17 PM CDT COPY TO FASTING:YES FASTING: YES Diana Fong MD LAB URINE ORDERABLES Final Result Performing Organization Address City/[facility] Co de Phone Number [facility] [address] [place] [address] from Last 3 Months or Most Recently Relevant to Health Maintenance Insurance MEDICARE [employer] [employer] [employer] Advance Directives For more information, please contact: [phone] * Full Code (Latest Code Status on File) Date Activated Date Inactivated Comments 05/08/2024 10:47 AM 05/11/2024 8:29 PM Care Teams 911 Emergency Services Dispatcher Relationship Specialty Start Date End Date Antonio Peña MD [address] [place] [address] PCP - General 10/18/16 Sandro Farris MD [address] [place] [address] Consulting Physician Urology 01/30/18 Diana Fong MD [address] [place] [address] Referring Physician Endocrinology Diabetes & Metabolism 01/30/18 Yaquelin Murillo MD PhD [facility] [address] [place] [address] Referring Physician Neurology 02/06/19 [place] [address] [place] [address] Consulting Physician Urology 05/11/24
--- OUTSIDE RECORDS SUMMARY | 2024-07-25 09:09 | XMS_ITS | Referral Summary ---
Author Organization [facility] Address [address] [place] [id number] Care Team Providers Care Loan Adviser Name Role Phone Antonio Peña MD Primary Care Prov ider Sandro Farris MD Unavailable [phone] Diana Fong MD Unavailable [phone] Yaquelin Murillo MD PhD Unavailable [phone] Kali Lewis MD Unavailable [phone] Encounters Date Type Department Care Team Description 07/09/2024 11:57 AM CDT - 07/09/2024 11:59 PM CDT Hospital Encounter [facility] ([facility]) [address] [place] [phone] Discharge Disposition: Discharge to home or self care 07/09/2024 11:56 AM CDT - 07/09/2024 11:59 PM CDT Hospital Encounter [facility] ([facility]) [address] [place] [address] [phone] Dementia, unspecified dementia severity, unspecified dementia type, unspecified whether behavioral, psychotic, or mood disturbance or anxiety (HCC) Discharge Disposition: Discharge to home or self care 05/08/2024 10:28 AM CDT - 05/11/2024 4:28 PM CDT Hospital Encounter [address] [place] [address] Uyen Harrington MD Williams, Timothy John, MD Dehaan, Kevin Patrick, MD Decuffa, Ravinder Noble, MD Auffenberg, Kali B., MD Renal mass, left [N28.89] (Primary Dx); Left renal mass Discharge Disposition: Discharge to home or self care 05/10/2024 Telephone [facility] [address] [place] [address] [address] [place] [address] Joan Marrero 05/10/2024 8:00 AM CDT - 05/10/2024 12:00 PM CDT Surgery [facility] Operating Room [facility] [place] [phone] Kali Lewis MD Hand Assisted Laparoscopic Left Nephrectomy 05/10/2024 8:44 AM CDT Anesthesia Event [facility] Operating Room [facility] [place] [phone] Shashank Barbosa MD from Last 3 Months Allergies Active Allergy Reactions Criticality Noted Date [...] Plan (05/10/2024 5:18 PM CDT): Records from [facility] reviewed. CT abdomen pelvis shows 7.4 [...] polycythemia Assessment & Plan (02/02/2018 9:48 AM CLIENT MANAGER [employer]ARGE LAW): Defer to his urologist Mixed hyperlipidemia 02/02/2018 [...] control. Assessment & Plan (03/12/2020 3:19 PM CLIENT MANAGER [employer]ARGE LAW): Continue statin, optimize glycemic control Assessment & Plan (08/30/2019 2:37 PM CDT): Continue statin, optimize glycemic control Assessment & Plan (08/09/2018 2:06 PM CDT): Continue statin, optimize glycemic control Assessment & Plan (02/02/2018 9:50 AM CLIENT MANAGER LARGE LAW): Continue statin, [place] 3. Recent LDL within goal Type [...] hypoglycemia. Assessment & Plan (03/12/2020 3:18 PM CLIENT MANAGER LARGE LAW): Glucoses higher overnight and lower during the day, so needs adjustments in his insulin within a good margin of safety. We will also try to get results of his recent labs from his PCP Assessment & Plan (08/30/2019 2:37 PM CDT): Overall improving, glucoses within a good margin of safety. We can continue current medication, for now Assessment & Plan (02/06/2019 1:49 PM CLIENT MANAGER LARGE LAW): Glucoses a little high sometimes after meals, [...] safety Assessment & Plan (02/02/2018 9:48 AM CLIENT MANAGER LARGE LAW): Glucoses appear to be okay, but he needs to check more often to maintain a good margin of safety. No change in therapy at this time otherwise Bunion 04/09/2015 Nocturia 04/07/2015 Oliguria 04/07/2015 Immunizations Immunization Administration Dates Next Due Influenza, Quadrivalent, Spl it, Preservative Free, Intramuscular 01/14/2017 Influenza, Trivalent, Preservative Free, Intramu scular 02/29/2016,11/28/2014 Social History Tobacco Use Types Packs/Day Years Used Date Smoking Tobacco: Former Smokeless Tobacco: Never Tobacco Cessation:Counseling Given: Not Answered [facility] Utilities Answer Date Recorded In the past 12 months has [employer], [employer], [employer], or water [employer] threatened to shut off services in your [...] week 05/09/2024 How often do you attend formerly [facility] or roman catholic services? More than 4 times per year 05/09/2024 Do you belong to any clubs o r organizations such as islam groups, unions, fraternal or athletic groups, or [...] any time in the past 12 m [facility], were you homeless or living in a chcf (including now)? No 05/09/2024 Personal Safety Answer Date Recorded Have you ever been in or are you currently in a harmful physical or emotional relationship or is someone making you feel afraid or unsafe? Denies 05/10/2024 Sex and Gender Information Value Date Recorded Sex Assigned at Not on file Legal Sex Male 12:50 AM CLIENT MANAGER [employer]AR[employer] Gender Identity Not on file Sexual Orientation Not on file Last Filed Vital Signs Vital Sign Reading [...] 05/08/2024 10:30 AM CDT Plan of Treatment Not on file Procedures Procedure Name Priority Date/Time Associated Diagnosis [...] 05/10/2024 11:59 AM CDT Left renal mass AR AN PROCEDURE PLACEHOLDER Routine 05/10/2024 9:08 AM CDT AR AN ELECTIVE ENDOTRACHEAL AIRWAY Routine 05/10/2024 9:08 [...] BODY OUTSIDE REFERENCE Routine 05/04/2024 12:00 AM CLIENT MANAGER LARGE LAW US TRANSFER OF OUTSIDE FILMS Routine 05/04/2024 12:00 [address]GER [employer]AR[employer] CT BODY OUTSIDE REFERENCE Routine 05/03/2024 12:00 AM CLIENT MANAGER LARGE LAW LIPID PANEL Routine 07/01/2022 9:59 AM CDT [...] AMYLOID-PET/CT IMAGING DATE OF STUDY: 07/09/2024 SCANNER: [facility] Open Home Pro Vision (NV1). RADIOPHARMACEUTICAL: 11.85 mCi F-18 florbetapir [...] performed. The study was interpreted on the [employer] workstation. COMPARISON CT/MRI: None. FINDINGS: There is normal cortical-white matter contrast in the cerebellum. There is decreased cortical-white matter contrast involving the bilateral temporal, parietal, frontal lobes. Incidental CT findings: Biparietal atrophy, including the precuneus. Procedure Note Sanjay Lane MD PhD - 07/09/2024 EXAMINATION: BRAIN AMYLOID-PET/CT IMAGING DATE OF STUDY: 07/09/2024 SCANNER: [facility] [employer] PET Vision (NV1). RADIOPHARMACEUTICAL: 11.85 mCi F-18 florbetapir [...] performed. The study was interpreted on the [employer] workstation. COMPARISON CT/MRI: None. FINDINGS: There is [...] K/cumm Hgb 12.3(L) 13.0 - 17.5 g/dL [facility] Hct 38.6(L) 38.9 - 50.3 % [facility] Plt 277 150 - 400 K/cumm [facility] MPV 10.0 9.1 - 12.3 fL [facility] RBC 4.09(L) 4.30 - 5.80 M/cumm [facility] MCV 94.4 81.3 - 96.4 fL [facility] MCH 30.1 27.1 - 33.3 pg [facility] MCHC 31.9(L) 32.3 - 35.7 g/dL [facility] RDW CV 13.2 11.1 - 14.9 % [facility] RDW SD 45.0 35.7 - 48.1 fL [facility] NRBC abs 0.00 0.00 - 0.01 K/cumm [facility] Blood 05/11/2024 12:0 4 PM CDT 05/11/2024 12:04 PM CDT Kali Lewis MD LAB BLOOD ORDERABLES Fi nal Result Performing Organization Address [facility] Co de Phone Number [facility] [address] Department [place] [address] * POCT glucose (05/11/2024 12:03 PM CDT) [...] D EVICE Final Result Performing Organization Address [facility] de Phone Number [facility] [address] Department [place] [address] * eGFR (05/11/2024 11:59 AM CDT) [facility] eGFR 63 >=60 mL/min/1. 73 m2 Comment: [...] Fi nal Result Performing Organization Address City/[facility]/ZIP Co de Phone Number [facility] [address] [place] [address] * (ABNORMAL) Basic metabolic panel (05/11/2024 11:59 AM CDT) [facility] Sodium 138 135 - 145 mmol/L Potassium, pl 3.8 3.3 - 4.9 mmol/L [facility] Chloride 103 97 - 110 mmol/L [facility] CO2 21(L) 22 - 32 mmol/L [facility] Anion gap 14 2 - 15 mmol/L [facility] BUN 9 6 - 25 mg/dL [facility] Creatinine 1.24 0.80 - 1.30 mg/dL [facility] Glucose 160 70 - 199 mg/dL [facility] Comment: Interpretive Data Fasting glucose >/= [...] 2022. Calcium 8.8 8.5 - 10.3 mg/dL [facility] Blood 05/11/2024 11:5 9 AM CDT 05/11/2024 11:59 AM CDT Kali Lewis MD LAB BLOOD ORDERABLES Fi nal Result Performing Organization Address [facility]/ZIP Co de Phone Number [facility] [address] [place] [address] * POCT glucose (05/11/2024 6:45 AM CDT) [...] D EVICE Final Result Performing Organization Address [facility] Co de Phone Number [facility] [address] [place] [address] * POCT glucose (05/10/2024 9:03 PM CDT) Glucose, POC 163 70 - 199 mg/dL Comment: For Glucose values <35 mg/dl when Hematocrit is >60 mg/dl,the test may not accurately detect significant hypoglycemia,and testing in the Laboratory should be considered if clinically indicated. Blood 05/10/2024 9:03 PM CDT 05/10/2024 9:03 PM CDT us Kali Lewis MD LAB POCT ORDERABLES - D EVICE Final Result Performing Organization Address City/[facility]/ZIP Co de Phone Number [facility] [address] [place] [place] [address] * POCT glucose (05/10/2024 5:48 PM CDT) Glucose, POC 128 70 - 199 mg/dL Comment: For Glucose values <35 mg/dl when Hematocrit is >60 mg/dl,the test may not accurately detect significant hypoglycemia,and testing in the Laboratory should be considered if clinically indicated. Blood 05/10/2024 5:48 PM CDT 05/10/2024 5:48 PM CDT us Kali Lewis MD LAB POCT ORDERABLES - D EVICE Final Result Performing Organization Address [facility] Co de Phone Number [facility] [address] Department [place] [address] * eGFR (05/10/2024 1:13 PM CDT) eGFR [...] us Kali Lewis MD LAB BLOOD ORDERABLES Fi nal Result Performing Organization Address City/[facility]/ZIP Co de Phone Number [facility] [address] Department of [employer] [place], [place] [id number] * (ABNORMAL) CBC without differential (05/10/2024 1:13 PM CDT) Pathologist [facility] WBC 10.5(H) 3.8 - 9.9 K/cumm Hgb 11.9(L) 13.0 - 17.5 g/dL [facility] Hct 36.6(L) 38.9 - 50.3 % [facility] Plt 241 150 - 400 K/cumm [facility] MPV 10.5 9.1 - 12.3 fL [facility] RBC 3.90(L) 4.30 - 5.80 M/cumm [facility] MCV 93.8 81.3 - 96.4 fL [facility] MCH 30.5 27.1 - 33.3 pg [facility] MCHC 32.5 32.3 - 35.7 g/dL [facility] RDW CV 13.4 11.1 - 14.9 % [facility] RDW SD 46.1 35.7 - 48.1 fL [facility] NRBC abs 0.00 0.00 - 0.01 K/cumm [facility] Blood 05/10/2024 1:13 PM CDT 05/10/2024 1:33 PM CDT Kali Lewis MD LAB BLOOD ORDERABLES Fi nal Result [facility] [address] Department [place] [address] * (ABNORMAL) Basic metabolic panel (05/10/2024 1:13 PM CDT) Sodium 139 135 - 145 mmol/L Potassium, pl 4.3 3.3 - 4.9 mmol/L [facility] Chloride 106 97 - 110 mmol/L [facility] CO2 17(L) 22 - 32 mmol/L [facility] Anion gap 16(H) 2 - 15 mmol/L [facility] BUN 12 6 - 25 mg/dL [facility] Creatinine 1.18 0.80 - 1.30 mg/dL [facility] Glucose 143 70 - 199 mg/dL [facility] Comment: Interpretive Data Fasting glucose >/= [...] 2022. Calcium 8.5 8.5 - 10.3 mg/dL [facility] Blood 05/10/2024 1:13 PM CDT 05/10/2024 1:33 PM CDT Kali Lewis MD LAB BLOOD ORDERABLES Fi nal Result [facility] [address] Department [place] [address] * POCT glucose (05/10/2024 1:09 PM CDT) [...] D EVICE Final Result Performing Organization Address City/[facility]/ZIP Co de Phone Number [facility] [address] Department [place] [address] * Surgical pathology (05/10/2024 11:59 AM CDT) Tissue specimen (specimen) (Kidney, total nephrectomy) 05/10/2024 11:59 AM CDT Comment:Placed in formalin i n lab following procedure Narrative [facility] - 05/16/2024 1:27 PM CDT [place] [id number] [facility], [place], [place] [address] Tele: Carli Choi MD - Pinion Staker Note to Patients: This report may contain [...] PATHOLOGY REPORT Patient Name: RUBEN RAPHAEL Address: [address] [place] [address] Gender: M : 1955 (Age: 69) Service: Surgery Location: [place] [address], Hospital #: [id number] Patient Type: [facility] INPATIENT Taken: 05/10/2024 Received 05/10/2024 Reported: 05/16/2024 [...] mucosa. There are no gross lymph nodes. Broadcast Chief Engineer sections are submitted as follows: A1 - [...] VERSION: Kidney 4.2.0.0 Clerical Data Follows A; 23940, 40286, 64419(3) REPORT IMAGES AND/OR SCANNED DOCUMENTS ONLY VIEWABLE IN PDF FORMAT The immunohistochemical test(s) cited in this report, if any, was developed and its performance characteristics determined by [facility] Pathology Department. It has not been cleared or approved by the U.S. Food and Drug Administration. The FDA has determined that such clearance or approval is not necessary. This test is used for clinical purposes. It should not be regarded as investigational or for research. [facility] Laboratory is certified under the Clinical Laboratory [...] part or completely in the following laboratories: [facility], [address] [place] [address], [address] [place] [address]. Kali Lewis MD LAB PATHOLOGY ORDERABLE S Final Result [facility]OLOGY [facility] Laboratory Receiving [address] [place] [address] * AR AN ELECTIVE ENDOTRACHEAL AIRWAY, AR AN PROCEDURE PLACEHOLDER (05/10/2024 9:08 AM CDT) Narrative Carolina Murphy CRNA - 05/10/2024 9:08 AM CDT Carolina Murphy CRNA 05/10/2024 9:09 AM Airway Patient location: OR Urgency: elective Date/time: 05/10/2024 8:53 AM Indications for airway management: anesthesia Difficult airway: no Staff: Placed by: BARBARA: Carolina Murphy CRNA Emergent airway documentation: Risks [...] chipped #8 present prior to airway instrumentation. Shashank Barbosa MD ANESTHESIA ORDERABLES Final Result [...] POCT ORDERABLES - DEVICE Final Result [facility] [address] Department [place] [address] * POCT glucose (05/09/2024 8:22 PM [...] - DEVICE Final Result Performing Organization Address [facility] Co de Phone Number [facility] [address] [facility] [place] [address] * POCT glucose (05/09/2024 4:22 PM CDT) Glucose, POC 84 70 - 199 mg/dL Comment: For Glucose values <35 mg/dl when Hematocrit is >60 mg/dl,the test may not accurately detect significant hypoglycemia,and testing in the Laboratory should be considered if clinically indicated. Blood 05/09/2024 4:22 PM CDT 05/09/2024 4:22 PM CDT Ravinder Tai MD LAB POCT ORDERABLES - DEVICE Final Result Performing Organization Address [facility] de Phone Number [facility] [address] [facility] [place] [address] * POCT glucose (05/09/2024 11:37 AM CDT) Glucose, POC 78 70 - 199 mg/dL Comment: For Glucose values <35 mg/dl when Hematocrit is >60 mg/dl,the test may not accurately detect significant hypoglycemia,and testing in the Laboratory should be considered if clinically indicated. Blood 05/09/2024 11:3 7 AM CDT 05/09/2024 11:37 AM CDT Ravinder Tai MD LAB POCT ORDERABLES - DEVICE Final Result Performing Organization Address [facility] Co de Phone Number [facility] [address] [facility] [place] [address] * POCT glucose (05/09/2024 6:12 AM CDT) Pathologist [facility] Glucose, POC 82 70 - 199 mg/dL Comment: For Glucose values <35 mg/dl when Hematocrit is >60 mg/dl,the test may not accurately detect significant hypoglycemia,and testing in the Laboratory should be considered if clinically indicated. Blood 05/09/2024 6:12 AM CDT 05/09/2024 6:12 AM CDT Kumar Lopez MD LAB POCT ORDERABLES - DE VICE Final Result Performing Organization Address [facility]/ZIP Co de Phone Number [facility] [address] [email or web address] [address] * eGFR (05/09/2024 4:51 AM CDT) [facility] eGFR 60 >=60 mL/min/1. 73 m2 [...] MD LAB BLOOD ORDERABLES Fi nal Result [facility] [address] [email or web address] [address] * Differential, auto (05/09/2024 4:51 AM CDT) Neutrophil abs 4.6 1.5 - 6.5 K/cumm Imm gran abs 0.0 0.0 - 0.1 K/cumm [facility] Lymphocyte abs 1.6 0.8 - 3.3 K/cumm [facility] Monocyte abs 0.8 0.2 - 0.8 K/cumm [facility] Eosinophil abs 0.2 0.0 - 0.5 K/cumm [facility] Basophil abs 0.0 0.0 - 0.1 K/cumm [facility] Neutrophil pct 63.5 % [facility] Comment: Interpretive Data Percent cell count reference ranges are not reported, since discordance with absolute values may lead to misinterpretation of CBC data. Current Interpretive Data was last revised on 2017. Imm gran pct 0.6 % [facility] Comment: Interpretive Data Percent cell count reference ranges are not reported, since discordance with absolute values may lead to misinterpretation of CBC data. Current Interpretive Data was last revised on 2017. Lymphocyte pct 21.8 % [facility] Comment: Interpretive Data Percent cell count reference ranges are not reported, since discordance with absolute values may lead to misinterpretation of CBC data. Current Interpretive Data was last revised on 2017. Monocyte pct 10.5 % [facility] Comment: Interpretive Data Percent cell count reference ranges are not reported, since discordance with absolute values may lead to misinterpretation of CBC data. Current Interpretive Data was last revised on 2017. Eosinophil pct 3.3 % [facility] Comment: Interpretive Data Percent cell count reference ranges are not reported, since discordance with absolute values may lead to misinterpretation of CBC data. Current Interpretive Data was last revised on 2017. Basophil pct 0.3 % [facility] Comment: Interpretive Data Percent cell count reference ranges are not reported, since discordance with absolute values may lead to misinterpretation of CBC data. Current Interpretive Data was last revised on 2017. Blood 05/09/2024 4:51 AM CDT 05/09/2024 5:14 AM CDT Gregor Almonte MD LAB BLOOD ORDERABLES Fi nal Result Performing Organization Address [facility]/ZIP Co de Phone Number [facility] [address] [email or web address] [address] * (ABNORMAL) CBC with auto differential (05/09/2024 4:51 AM CDT) Pathologist [facility] WBC 7.2 3.8 - 9.9 K/cumm Hgb 12.2(L) 13.0 - 17.5 g/dL [facility] Hct 37.1(L) 38.9 - 50.3 % [facility] Plt 248 150 - 400 K/cumm [facility] MPV 10.3 9.1 - 12.3 fL [facility] RBC 4.05(L) 4.30 - 5.80 M/cumm [facility] MCV 91.6 81.3 - 96.4 fL [facility] MCH 30.1 27.1 - 33.3 pg [facility] MCHC 32.9 32.3 - 35.7 g/dL [facility] RDW CV 13.1 11.1 - 14.9 % [facility] RDW SD 43.8 35.7 - 48.1 fL [facility] NRBC abs 0.00 0.00 - 0.01 K/cumm [facility] Blood 05/09/2024 4:51 AM CDT 05/09/2024 5:14 AM CDT Gregor Almonte MD LAB BLOOD ORDERABLES Fi nal Result Performing Organization Address City/[facility]/ZIP Co de Phone Number [facility] [address] Department [place] [address] * Type and screen (05/09/2024 4:51 AM CDT) Pathologist [facility] ABO Rh O Positive Juany, indirect Negative [facility] Blood 05/09/2024 4:51 AM CDT 05/09/2024 5:13 AM CDT Narrative [facility] - 05/09/2024 5:54 AM CDT Has the patient had Daratumumab or Isatuximab in the past 6 months?->Unknown Kayla Hayes INDEPENDENT MARKETING CONSULTANT LAB BLOOD BANK TEST ORDERABLES Final Result Performing Organization Address [facility] de Phone Number [facility] [address] Department [place] [address] * (ABNORMAL) Hemoglobin A1c (05/09/2024 4:51 AM CDT) [facility] Hgb A1C 6.6(H) 4.0 - 5.6 % Estimated Average Glucose 143 mg/dL [facility] Comment: The ADA recommends reporting an estimated Average Glucose (eAG) with all Hemoglobin A1c results using the equation derived from a study of 507 normal and diabetic adults. Minority populations were underrepresented and children were not included. (Diabetes Care 31:7703-1928, 2008). The eAG is not equivalent to a fasting glucose. Blood 05/09/2024 4:51 AM CDT 05/09/2024 5:14 AM CDT Johann Mcginnis INDEPENDENT MARKETING CONSULTANT LAB BLOOD ORDERABLES Final Result Performing Organization Address [facility] de Phone Number [facility] [address] Department [place] [address] * (ABNORMAL) Basic metabolic panel (05/09/2024 4:51 AM CDT) [facility] Sodium 142 135 - 145 mmol/L Potassium, pl 4.0 3.3 - 4.9 mmol/L [facility] Chloride 107 97 - 110 mmol/L [facility] CO2 18(L) 22 - 32 mmol/L [facility] Anion gap 17(H) 2 - 15 mmol/L [facility] BUN 20 6 - 25 mg/dL [facility] Creatinine 1.30 0.80 - 1.30 mg/dL [facility] Glucose 81 70 - 199 mg/dL [facility] Comment: Interpretive Data Fasting glucose >/= [...] 2022. Calcium 8.3(L) 8.5 - 10.3 mg/dL [facility] Blood 05/09/2024 4:51 AM CDT 05/09/2024 5:14 AM CDT Gregor Almonte MD LAB BLOOD ORDERABLES Fi nal Result Performing Organization Address City/[facility]/ZIP Co de Phone Number [facility] [address] Department [place] [address] * POCT glucose (05/08/2024 9:33 PM CDT) [facility] Signature Glucose, POC 98 70 - 199 mg/dL Comment: For Glucose values <35 mg/dl when Hematocrit is >60 mg/dl,the test may not accurately detect significant hypoglycemia,and testing in the Laboratory should be considered if clinically indicated. Blood 05/08/2024 9:33 PM CDT 05/08/2024 9:33 PM CDT us Kumar Lopez MD LAB POCT ORDERABLES - DE VICE Final Result Performing Organization Address City/[facility]/ZIP Co de Phone Number [facility] [facility] [address] Department [place] [address] * CT Chest WO Contrast (05/08/2024 5:56 [...] by: Daron Amanda M.D. Kayla Hayes NP IMG CT PROCEDURES Final Result * POCT glucose [...] DE VICE Final Result Performing Organization Address [facility] Co de Phone Number [facility] [address] [email or web address] [address] * (ABNORMAL) eGFR (05/08/2024 3:46 PM CDT) [...] Fi nal Result Performing Organization Address City/[facility]/ZIP Co de Phone Number [facility] [address] Department of Upkeep [place], [place] [id number] * Check Sample (05/08/2024 3:46 PM CDT) ABO Rh O Positive MBC HCLL OTHER 05/08/2024 3:46 PM CDT 05/08/2024 7:13 PM CDT Kumar Lopez MD LAB BLOOD ORDERABLES Fin al Result Performing Organization Address [facility] Co de Phone Number [facility] [address] [email or web address] [address] MBC * (ABNORMAL) CBC without differential (05/08/2024 3:46 PM CDT) Pathologist [facility] WBC 9.1 3.8 - 9.9 K/cumm Hgb 12.9(L) 13.0 - 17.5 g/dL [facility] Hct 39.1 38.9 - 50.3 % [facility] Plt 272 150 - 400 K/cumm [facility] MPV 10.7 9.1 - 12.3 fL [facility] RBC 4.23(L) 4.30 - 5.80 M/cumm [facility] MCV 92.4 81.3 - 96.4 fL [facility] MCH 30.5 27.1 - 33.3 pg [facility] MCHC 33.0 32.3 - 35.7 g/dL [facility] RDW CV 13.2 11.1 - 14.9 % [facility] RDW SD 44.3 35.7 - 48.1 fL [facility] NRBC abs 0.00 0.00 - 0.01 K/cumm [facility] Blood 05/08/2024 3:46 PM CDT 05/08/2024 4:29 PM CDT Gregor Almonte MD LAB BLOOD ORDERABLES Fi nal Result Performing Organization Address [facility]/ZIP Co de Phone Number [facility] [address] Department [place] [address] * (ABNORMAL) Comprehensive metabolic panel (05/08/2024 3:46 PM CDT) Pathologist [facility] Sodium 134(L) 135 - 145 mmol/L Potassium, pl 3.9 3.3 - 4.9 mmol/L [facility] Chloride 99 97 - 110 mmol/L [facility] CO2 21(L) 22 - 32 mmol/L [facility] Anion gap 14 2 - 15 mmol/L [facility] BUN 21 6 - 25 mg/dL [facility] Creatinine 1.34(H) 0.80 - 1.30 mg/dL [facility] Glucose 107 70 - 199 mg/dL [facility] Comment: Interpretive Data Fasting glucose >/= [...] 2022. Calcium 8.7 8.5 - 10.3 mg/dL [facility] Bilirubin, total 0.2 0.1 - 1.2 mg/dL [facility] Protein, pl 6.9 6.5 - 8.5 g/dL [facility] Albumin 3.9 3.5 - 5.0 g/dL [facility] Alk phos 51 40 - 130 Units/L [facility] ALT 12 7 - 55 Units/L [facility] AST 21 10 - 50 Units/L [facility] Blood 05/08/2024 3:46 PM CDT 05/08/2024 4:29 PM CDT Gregor Almonte MD LAB BLOOD ORDERABLES Fi nal Result [facility] [address] Department [place] [address] * POCT glucose (05/08/2024 11:57 AM CDT) [facility] Glucose, POC 105 70 - 199 mg/dL Comment: For Glucose values <35 mg/dl when Hematocrit is >60 mg/dl,the test may not accurately detect significant hypoglycemia,and testing in the Laboratory should be considered if clinically indicated. Blood 05/08/2024 11:5 7 AM CDT 05/08/2024 11:57 AM CDT Gregor Almonte MD LAB POCT ORDERABLES - D EVICE Final Result Performing Organization Address [facility] de Phone Number [facility] [address] Department [place] [address] * CT Body Outside Reference (05/07/2024 12:00 AM CDT) Narrative [email or web address] - 05/08/2024 11:26 AM CDT This order has been auto-finalized and does not contain a result. us Provider Transcribed Order IMG CT PROCEDURES Fin al Result Performing Organization Address [facility] de Phone Number [email or web address] * CT Body Outside Reference (05/04/2024 12:00 AM CLIENT MANAGER [employer]) Narrative RAD_[email or web address]_[email or web address] - 05/08/2024 11:29 AM CDT This order has been auto-finalized and does not contain a result. us Provider Transcribed Order IMG CT PROCEDURES Fin al Result Performing Organization Address [facility] de Phone Number [email or web address] * US Outside Reference (05/04/2024 12:00 AM CLIENT MANAGER [employer]) Narrative [facility]_PACS_OUTSIDE_[email or web address] - 05/08/2024 11:29 AM CDT This order has been auto-finalized and does not contain a result. us Provider Transcribed Order IMG US PROCEDURES Fin al Result Performing Organization Address [facility] de Phone Number [email or web address] * CT Body Outside Reference (05/03/2024 12:00 AM CLIENT MANAGER [employer]) Narrative RAD_[email or web address]_FILM_[facility] - 05/08/2024 11:29 AM CDT This order has been auto-finalized and does not contain a result. us Provider Transcribed Order IMG CT PROCEDURES Fin al Result Performing Organization Address City/[facility]/ZIP Co de Phone Number [email or web address] * Lipid panel (07/01/2022 9:59 AM CDT) Cholesterol 127 <200 mg/dL [facility] HDL 45 > OR = 40 mg/dL [facility] Triglycerides 84 <150 mg/dL [facility] LDL 66 mg/dL (calc) [facility] Comment: Reference range: <100 Desirable range <100 mg/dL for primary prevention; <70 mg/dL for patients with CHD or diabetic patients with > or = 2 CHD risk factors. LDL-C is now calculated using the Anjel-Rosario calculation, which is a validated novel method providing better accuracy than the Friedewald equation in the estimation of LDL-C. Anjel SS et al. TRINIDAD. 2013;310(19): 0581-3496 (http://education.Parallel Engines/faq/FDQ405) Chol/HDL ratio 2.8 <5.0 (calc) [facility] Non-HDL, (LDL+VLDL) 82 <130 mg/dL (calc) [facility] Comment: For patients with diabetes plus 1 major ASCVD risk factor, treating to a non-HDL-C goal of <100 mg/dL (LDL-C of <70 mg/dL) is considered a therapeutic option. Blood 07/01/2022 9:59 AM CDT 07/01/2022 10:05 AM CDT Narrative [facility] - 07/05/2022 3:06 PM CDT FASTING:YES PATIENT UNABLE TO VOID; ADVISED TO RETURN FOR COLLECTION. FASTING: YES Geraldine Stanford INDEPENDENT MARKETING CONSULTANT LAB BLOOD ORDERABLES Final Result Performing Organization Address City/[facility]/ZIP Co de Phone Number [email or web address] [address] [place] [address] * Albumin Creatinine Ratio, Urine (10/01/2020 11:05 [...] Fong MD LAB URINE ORDERABLES Final Result [facility] [address] [place] [address] from Last 3 Months or Most Recently Relevant to Health Maintenance Insurance MEDICARE [facility] MEDICARE [employer] [place] [employer] [place] MEDIC[place] Advance Directives For more information, please contact: [phone] * Full Code (Latest Code Status on File) Date Activated Date Inactivated Comments 05/08/2024 10:47 AM 05/11/2024 8:29 PM Care Teams Loan Adviser Relationship Specialty Start Date End Date Antonio Peña MD [address] [place] [address] PCP - General 10/18/16 Sandro Farris MD [address] [place] [address] Consulting Physician Urology 01/30/18 Diana Fong MD [address] [place] [address] Referring Physician Endocrinology Diabetes & Metabolism 01/30/18 Yaquelin Murillo MD PhD [address] [place] [address] Referring Physician Neurology 02/06/19 [place] [address] [place] [address] Consulting Physician Urology 05/11/24
[2024-07-25 09:24] LABS: Estimated Glomerular Filt Rate 43
== END 2024-07-25 09:01 | disposition home or self-care (01) ==
PROVIDERS: PCP Family Medicine Adolescent Medicine; Visit Provider Urology
DX: C64.2 Malignant neoplasm of left kidney, except renal pelvis (principal); Z90.5 Acquired absence of kidney
CPT/HCPCS: 71046; 74177; Q9967

== ENCOUNTER 2024-09-04 09:51 | Outpatient (CLI) | payer MEDICARE, OTHER, SELFPAY ==
--- NOTE | ~2024-09-04 | MR_ITS ---
MRI of the brain Clinical History: Personal history of healed injury Technique: Axial and sagittal T1-weighted images were acquired. These were followed by axial T2-weigh kailash, diffusion weighted, gradient, and FLAIR images. COMPARISON: 10/25/2022 Findings: There is no acute infarct, intracranial hemorrhage or mass lesion. There are moderate chron ic microvascular ischemic changes in the periventricular white matter bilaterally. Ventricles and subarachnoid spaces are mildly dilated. Orbits are unremarkable. Paranasal sinuses and mastoid air cells are essentially clear. Major intracranial flow voids appear intact. Sagittal midline structures are intact. IMPRESSION: No acute abnormalities. Moderate chronic microvascular ischemic change and mild generalized atrophy. Reviewed, dictated and finalized at location .
== END 2024-09-04 09:52 | disposition home or self-care (01) ==
LOC: MICIMG 09:51
PROVIDERS: PCP Family Medicine Adolescent Medicine; Visit Provider Psychiatry & Neurology Neurology
DX: I67.82 Cerebral ischemia (principal); G31.89 Other specified degenerative diseases of nervous system; Z87.828 Personal history of other (healed) physical injury and trauma
CPT/HCPCS: 70551

== ENCOUNTER 2024-10-15 11:11 | Outpatient (CLI) | payer MEDICARE, OTHER, SELFPAY ==
--- NOTE | ~2024-10-15 | XR_ITS ---
EXAM/ PROCEDURE: XR hand BI arthritis min 3V - 10/15/2024 11:30 CDT HISTORY: 69 years old Male with M65.90 - Unspecified synovitis and tenosynovitis, unspeci... COMPARISON: None available TECHNIQUE: 8 view(s) FINDINGS/ IMPRESSION: There are no fractures or dislocations.Joint space narrowing, subchondral sclerosis, subchondral cyst formation and osteophyte formation, compatible with mild osteoarthritis. Reviewed, dictated and finalized at location A.
--- OUTSIDE RECORDS SUMMARY | 2024-10-15 12:47 | XMS_ITS | Encounter Summary ---
Author Organization [facility] Address [address] [place] [address] Phone Care Team Providers Care Brick Maker Name Role Phone Antonio Peña MD Primary Care Prov ider Sandro Farris MD Unavailable [phone] Diana Fong MD Unavailable [phone] Yaquelin Murillo MD PhD Unavailable [phone] Kali Lewis MD Unavailable [phone] Encounter Details Date Type Department Care Team (Latest Contact Info) Description 08/06/2021 Orders Only GAINES SLEEP Scanning, Provider Social History Tobacco Use Types Packs/Day Years Used Date Smoking Tobacco: Former Smokeless Tobacco: Never Sex and Gender Information Value Date Recorded Sex Assigned at Not on file 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 Gender Identity Not on file Sexual Orientation [...] on filedocumented in this encounter Care Teams Brick Maker Relationship Specialty Start Date End Date Antonio Peña MD [address] [place] [address] PCP - General 10/18/16 Sandro Farris MD [address] [place] [address] Consulting Physician Urology 01/30/18 Diana Fong MD [address] [place] [address] Referring Physician Endocrinology Diabetes & Metabolism 01/30/18 Yaquelin Murillo MD PhD [facility] [address] [place] [address] Referring Physician Neurology 02/06/19 [place] [address] [place] [address] Consulting Physician Urology 05/11/24 documented as of this encounter
--- OUTSIDE RECORDS SUMMARY | 2024-10-15 12:47 | XMS_ITS | Clinical Summary ---
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 Gender Identity Not on file Sexual Orientation Not on file Plan of Treatment Health Maintenance Due Date Last Done Comments Hepatitis C Virus (HCV) Screening 1955 TdaP Immunization 1955 Cologuard 2001 Colonoscopy 2001 Colorectal Cancer Screening 2001 Immunochemical Fecal Occult Blood 2001 Pneumococcal Immunization (50+ years) (1 of 1 - PCV) 2006 Zoster Immunization (1 of 2) 2006 SARS-COV-2 Immunization (3 - season) 2023 05/22/2020, 04/24/2020 Influenza Immunization (#1) 2024 09/2 , 11/20/2018, 02/22/2018, Additional history exists Respiratory Syncytial Virus (RSV) Immunization (Adult) (1 - 1-dose 75+ series) 2031 Hepatitis B Immunization Aged Out No longer eligible based on patient's age to complete this topic Human Papillomavirus (HPV) Immunization Aged Out No longer eligible based on patient's age to complete this topic Meningococcal Immunization (ACWY) Aged Out No longer eligible based on patient's age to complete this topic Rotavirus Immunization Aged Out No lo nger eligible based on patient's age to complete this topic
--- OUTSIDE RECORDS SUMMARY | 2024-10-15 12:47 | XMS_ITS | Clinical Summary ---
Author Organization [facility] Address [address] [place] [address] Care Team Providers Care Talent Management Manager Name Role Phone Antonio Peña MD Primary Care Prov ider Sandro Farris MD Unavailable [phone] Diana Fong MD Unavailable [phone] Yaquelin Murillo MD PhD Unavailable [phone] Kali Lewis MD Unavailable [phone] Allergies Active Allergy Reactions Criticality Noted Date [...] Plan (05/10/2024 5:18 PM CDT): Records from [facility] reviewed. CT abdomen pelvis shows 7.4 cm [...] polycythemia Assessment & Plan (02/02/2018 9:48 AM PLUMBING HARDWARE ASSEMBLER): Defer to his urologist Mixed hyperlipidemia 02/02/2018 [...] control. Assessment & Plan (03/12/2020 3:19 PM PLUMBING HARDWARE ASSEMBLER): Continue statin, optimize glycemic control Assessment & Plan (08/30/2019 2:37 PM CDT): Continue statin, optimize glycemic control Assessment & Plan (08/09/2018 2:06 PM CDT): Continue statin, optimize glycemic control Assessment & Plan (02/02/2018 9:50 AM PLUMBING HARDWARE ASSEMBLER): Continue statin, [place] 3. Recent LDL within goal Type 2 [...] hypoglycemia. Assessment & Plan (03/12/2020 3:18 PM PLUMBING HARDWARE ASSEMBLER): Glucoses higher overnight and lower during the day, so needs adjustments in his insulin within a good margin of safety. We will also try to get results of his recent labs from his PCP Assessment & Plan (08/30/2019 2:37 PM CDT): Overall improving, glucoses within a good margin of safety. We can continue current medication, for now Assessment & Plan (02/06/2019 1:49 PM PLUMBING HARDWARE ASSEMBLER): Glucoses a little high sometimes after meals, [...] safety Assessment & Plan (02/02/2018 9:48 AM PLUMBING HARDWARE ASSEMBLER): Glucoses appear to be okay, but he needs to check more often to maintain a good margin of safety. No change in therapy at this time otherwise Bunion 04/09/2015 Nocturia 04/07/2015 Oliguria 04/07/2015 Immunizations Immunization Administration Dates Next Due Influenza, Quadrivalent, Spl it, Preservative Free, Intramuscular 01/14/2017 Influenza, Trivalent, Preservative Free, Intramu scular 02/29/2016,11/28/2014 Surgical History Surgery Date Site/Laterality Comments LA XCAPSL CTRC RMVL INSJ IO LENS PROSTH [...] Tobacco: Never Tobacco Cessation:Counseling Given: Not Answered [facility] Utilities Answer Date Recorded In the past 12 months has th e [employer], gas, oil, or water company threatened to shut off services in your home? No 05/09/2024 Social Connection and Isolation Panel Answer Date Recorded In a typical week, how many times do you talk on the phone with family, friends, or neighbors? More than three times a week 05/09/2024 How often do you get togethe r with friends or relatives? More than three times a week 05/09/2024 How often do you attend chur ch or samaritan services? More than 4 times per year [...] any time in the past 12 m [facility], were you homeless or living in a nursing home (including now)? No 05/09/2024 Personal Safety Answer Date Recorded Have you ever been in or are you currently in a harmful physical or emotional relationship or is someone making you feel afraid or unsafe? Denies 05/10/2024 Sex and Gender Information Value Date Recorded Sex Assigned at Not on file Legal Sex Male 12:50 AM PLUMBING HARDWARE ASSEMBLER Gender Identity Not on file Sexual Orientation [...] 07/2021, 10/01/2020, Additional history exists Covid-19 Vaccine (4 - 2023-2 5 season) 2023 12/28/2020, 05/22/2020, 04/24/2020 Influenza Vaccine (#1) 2024 , 11/18/2019, 11/20/2018, Additional history exists Hemoglobin A1C 11/09/2024 05/09/2024, 05/0 05/2022, 06/09/2021, Additional history exists Fall Risk Assessment 05/11/2025 05/11/2024 eGFR 05/11/2025 05/11/2024, 04/28, 05/09/2024, Additional history exists Zoster Vaccine Completed 05/11/2021, 02/01/2021 Procedures Procedure Name Priority Date/Time Associated Diagnosis Comments EGFR Routine 05/11/2024 11:59 AM CDT HEMOGLOBIN A1C Routine 05/09/2024 4:51 AM CDT LIPID PANEL Routine 07/01/2022 9:59 AM CDT Type 2 diabetes mellitus with hyperglycemia, without long-term current use of insulin (HCC) Mixed hyperlipidemia ALBUMIN CREATININE RATIO, URINE Routine 10/01/2020 11:05 AM CDT Uncontrolled type 2 diabetes mellitus with hyperglycemia (HCC) from Last 3 Months or Most Recently Relevant to Health Maintenance Results * eGFR (05/11/2024 11:59 AM CDT) eGFR [...] ORDERABLES Fi nal Result Performing Organization Address [facility] Co de Phone Number [facility] [address] [place] [address] * (ABNORMAL) Hemoglobin A1c (05/09/2024 4:51 AM CDT) Pathologist [facility] Hgb A1C 6.6(H) 4.0 - 5.6 % Estimated Average Glucose 143 mg/dL [facility] Comment: The ADA recommends reporting an estimated Average Glucose (eAG) with all Hemoglobin A1c results using the equation derived from a study of 507 normal and diabetic adults. Minority populations were underrepresented and children were not included. (Diabetes Care 31:4058-5471, 2008). The eAG is not equivalent to a fasting glucose. Blood 05/09/2024 4:51 AM CDT 05/09/2024 5:14 AM CDT Johann Mcginnis NP LAB BLOOD ORDERABLES Final Result Performing Organization Address [facility] Co de Phone Number [facility] [address] [place] [address] * Lipid panel (07/01/2022 9:59 AM CDT) Cholesterol 127 <200 mg/dL [facility] HDL 45 > OR = 40 mg/dL [facility] [place] Triglycerides 84 <150 mg/dL [facility] LDL 66 mg/dL (calc) [facility] Comment: Reference range: <100 Desirable range <100 mg/dL for primary prevention; <70 mg/dL for patients with CHD or diabetic patients with > or = 2 CHD risk factors. LDL-C is now calculated using the Anjel-Ponce calculation, which is a validated novel method providing better accuracy than the Friedewald equation in the estimation of LDL-C. Anjel GUZMÁN et al. TRINIDAD. 2013;310(19): 2652-6717 (http://education.VeriTainer/faq/RMM710) Chol/HDL ratio 2.8 <5.0 (calc) [facility] Non-HDL, (LDL+VLDL) 82 <130 mg/dL (calc) [facility] Comment: For patients with diabetes plus 1 major ASCVD risk factor, treating to a non-HDL-C goal of <100 mg/dL (LDL-C of <70 mg/dL) is considered a therapeutic option. Blood 07/01/2022 9:59 AM CDT 07/01/2022 10:05 AM CDT Narrative [facility] - 07/05/2022 3:06 PM CDT FASTING:YES PATIENT UNABLE TO VOID; ADVISED TO RETURN FOR COLLECTION. FASTING: YES Geraldine Stanford [facility] LAB BLOOD ORDERABLES Final Result [facility] [address] [place] [address] * Albumin Creatinine Ratio, Urine (10/01/2020 11:05 [...] Fong MD LAB URINE ORDERABLES Final Result [facility] [address] [phone] from Last 3 Months or Most Recently Relevant to Health Maintenance Insurance MEDICARE [facility] MEDICARE [employer] [place] [employer] [place] [employer] Advance Directives For more information, please contact: [phone] * Full Code (Latest Code Status on File) Date Activated Date Inactivated Comments 05/08/2024 10:47 AM 05/11/2024 8:29 PM Care Teams Talent Management Manager Relationship Specialty Start Date End Date Antonio Peña MD [address] [place] [address] PCP - General 10/18/16 Sandro Farris MD [address] [place] [address] Consulting Physician Urology 01/30/18 Diana Fong MD [address] [place] [address] Referring Physician Endocrinology Diabetes & Metabolism 01/30/18 Yaquelin Murillo MD PhD [facility] [address] [place] [address] Referring Physician Neurology 02/06/19 [place] [address] [place] [address] Consulting Physician Urology 05/11/24
== END 2024-10-15 11:12 | disposition home or self-care (01) ==
PROVIDERS: PCP Family Medicine Adolescent Medicine; Visit Provider Plastic Surgery
DX: M65.942 Unspecified synovitis and tenosynovitis, left hand (principal); M65.941 Unspecified synovitis and tenosynovitis, right hand
CPT/HCPCS: 73130

== ENCOUNTER 2024-11-07 07:47 | Outpatient (CLI) | payer MEDICARE, OTHER, SELFPAY ==
--- OUTSIDE RECORDS SUMMARY | 2008-12-05 09:00 | XMS_ITS | Continuity of Care Document ---
Author Organization Located within [facility] Address [address] [place] [address] [address] [place] [address] Phone Care Team Providers Care Outsole Tacker Name Role Phone Reddy OD, Phani Unavailable Unavailable Procedures Procedure Date Eye Exam & Treatment Refraction Eye Exam & Treatment Refraction Advance Directives Directive Yes / No Effective Date File Name No Information Encounters Encounter Description Practice Location Reason(s) For Visit Diagnoses Date Provider Providers Copied on Encounter formerly [facility], [address] [place] [address] [address], [place], [place], [id number], tel:[phone] [facility] No Information Nov-0 8-200 9 Reddy OD Phani. [address] [facility] , [address], [place], [address], . tel:[phone] Referring Provider: Antonio Peña MD, [address] [place] [address], [address]. tel:[phone] formerly [facility], [address] [place] [address] [address], [place], [place], [id number], tel:[phone] [facility] No Information 1-200 7 Reddy OD Phani. [address] [facility] [address], [address], [place], [address], . tel:[phone] Referring Provider: Antonio Peña MD, [address] [place] [address], [address]. tel:[phone] Family History Family Member Type Diagnosis Age At Onset No Information Payers Payer name Insurance type Covered libertarian ID Amena riggs(s) [employer] Plan [id number] 2 Social History Type Description Quantity Date Captured Comments Sex Male Smoking Status No Information Chief Complaint And Reason For Visit No Information Reason For Referral Reason For Referral No Information History Of Present Illness Encounter Date Complaint History Of Prese nt Illness No Information Functional Status Date Functional Assessmen t No Information Instructions Date Instruction Additional Infor mation No Information Assessments Type Assessment Date No Information Patient Care Teams Name Effective Dates (start - stop) Status Members No Information
--- NOTE | ~2024-11-07 | CT_ITS ---
EXAMINATION: CT abdomen pelvis w con DATE: 11/07/2024 08:32 INDICATION: Renal cell carcinoma. TECHNIQUE: Computed tomography (CT) of the abdomen and pelvis was performed with 100 mL Omnipaque 350 intravenous contrast. Automated exposure control and iterative reconstruction technique were employed. The dose-length product was 816.22 mGy-cm. COMPARISON: CT abdomen and pelvis 07/25/2024, 05/03/24 FINDINGS: The visualized portions of lung bases demonstrate mild atelectasis. There is a 5 mm nodule in left lower lobe, stable from 05/03/24, likely benign. A calcified left lung nodule is consistent with old granulomatous disease. No pleural effusion. The heart size is normal. No pericardial effusion. There are cysts in the liver measuring up to 6 mm. The gallbladder, spleen, pancreas, adrenal glands, and right kidney are normal. There are changes of left nephrectomy. The prostate is moderately enlarged. A penile prosthesis is noted. There are no dilated loops of bowel. The appendix is normal. There are no pathologically enlarged lymph nodes. There is no free intraperitoneal fluid. There is moderate lumbar spondylosis and mild thoracic spondylosis. There is mild chronic anterior wedging of multiple thoracic vertebral bodies associated with Schmorl's nodes. IMPRESSION: 1. No specific evidence of metastatic disease. Reviewed, dictated and finalized at location E.
--- NOTE | ~2024-11-07 | XR_ITS ---
EXAMINATION: XR chest 2V, 11/07/2024 8:00 CDT HISTORY: Renal cell carcinoma COMPARISON: No comparisons available. Technique: 2 views obtained. Findings: The lungs are clear, no effusion. No pneumothorax. Heart is normal size. Mediastinal and hilar contours are within normal limits. Bony thorax no acute abnormality. Impression: No acute cardiopulmonary abnormality. Reviewed, dictated and finalized at location A. Impression: No acute cardiopulmonary abnormality.
--- OUTSIDE RECORDS SUMMARY | 2024-11-07 08:06 | XMS_ITS | Clinical Summary ---
Author Organization [facility] Address [address] [place] [address] Care Team Providers Care Stained Glass Glazier Helper Name Role Phone Antonio Peña MD Primary Care Provider + Source Comments [facility],non-owned Affiliates and Associated Physician Practices is amultiple site organization consisting of ambulatory clinics and hospital sitesin [place], [place], [place] and [place]. This disclosure is being madepursuant to the Care Everywhere program and may not contain all information available regarding this patient. Last updated 17.[facility] Allergies No known active allergies Medications * Be aware that medications may not be up to date on this document. Alwaysverify current medications with the patient. No known medications Immunizations Immunization Administration Dates Next Due INFLUENZA VACCINE, QUADR. (F LUZONE; FLULAVAL; FLUARIX; AFLURIA QUADRIVALENT; 6MO+), 0.5 ML (IIV4) 01/14/2017 iNFLUENZA VACCINE, RECOM-MCCANN, QUADR. 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 Gender Identity Not on file Sexual Orientation [...] 2006 ZOSTER VACCINE (1 of 2) 2006 DEPRESSION SCREENING 02/29/2024 COVID-19 VACCINE (1 - 2023-2 5 season) 2024 INFLUENZA VACCINE (#1) 2024 8, 01/14/2017 Respiratory Syncytial Virus (RSV) Vaccine Pt: or [...] complete this topic MENINGOCOCCAL (Group B) VACCINE SHARED DECISION-MAKING Aged Out No longer eligible based on patient's age to complete this topic MENINGOCOCCAL GROUPS A/C/Y/W VACCINE Aged Out No longer eligible b ased on patient's age to complete this topic Insurance AETNA Care Teams Stained Glass Glazier Helper Relationship Specialty Start Date End Date Antonio Peña MD NPI: [id number] [place] [id number] PCP - General Family Medicine 01/14/17
--- OUTSIDE RECORDS SUMMARY | 2024-11-07 08:06 | XMS_ITS | Encounter Summary ---
Author Organization [facility] Address [address] [place] [address] Phone Care Team Providers Care American Studies Professor Name Role Phone Antonio Peña MD Primary Care Prov ider Sandro Farris MD Unavailable [phone] Diana Fong MD Unavailable [phone] Yaquelin Murillo MD PhD Unavailable [phone] Kali Lewis MD Unavailable [phone] Encounter Details Date Type Department Care Team (Latest Contact Info) Description 08/06/2021 Orders Only GAINES SLEEP Scanning, Provider Social History Tobacco Use Types Packs/Day Years Used Date Smoking Tobacco: Former Smokeless Tobacco: Never Sex and Gender Information Value Date Recorded Sex Assigned at Not on file 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
--- OUTSIDE RECORDS SUMMARY | 2024-11-07 08:06 | XMS_ITS | Clinical Summary ---
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
--- OUTSIDE RECORDS SUMMARY | 2024-11-07 08:06 | XMS_ITS | Clinical Summary ---
Author Organization [facility] Address [address] [place] [address] Care Team Providers Care Blacktop Paver Operator Name Role Phone Antonio Peña MD Primary Care Prov ider Sandro Farris MD Unavailable [phone] Diana Fong MD Unavailable [phone] Yaquelin Murillo MD PhD Unavailable [phone] Kali Lewis MD Unavailable [phone] Allergies Active Allergy Reactions Criticality Noted Date [...] Plan (05/10/2024 5:18 PM CDT): Records from [facility] reviewed. CT abdomen pelvis shows 7.4 cm [...] polycythemia Assessment & Plan (02/02/2018 9:48 AM MULTIMEDIA PRODUCTION ASSISTANT): Defer to his urologist Mixed hyperlipidemia 02/02/2018 [...] control. Assessment & Plan (03/12/2020 3:19 PM MULTIMEDIA PRODUCTION ASSISTANT): Continue statin, optimize glycemic control Assessment & Plan (08/30/2019 2:37 PM CDT): Continue statin, optimize glycemic control Assessment & Plan (08/09/2018 2:06 PM CDT): Continue statin, optimize glycemic control Assessment & Plan (02/02/2018 9:50 AM MULTIMEDIA PRODUCTION ASSISTANT): Continue statin, [place] 3. Recent LDL within goal Type 2 [...] hypoglycemia. Assessment & Plan (03/12/2020 3:18 PM MULTIMEDIA PRODUCTION ASSISTANT): Glucoses higher overnight and lower during the day, so needs adjustments in his insulin within a good margin of safety. We will also try to get results of his recent labs from his PCP Assessment & Plan (08/30/2019 2:37 PM CDT): Overall improving, glucoses within a good margin of safety. We can continue current medication, for now Assessment & Plan (02/06/2019 1:49 PM MULTIMEDIA PRODUCTION ASSISTANT): Glucoses a little high sometimes after meals, [...] safety Assessment & Plan (02/02/2018 9:48 AM MULTIMEDIA PRODUCTION ASSISTANT): Glucoses appear to be okay, but he needs to check more often to maintain a good margin of safety. No change in therapy at this time otherwise Bunion 04/09/2015 Nocturia 04/07/2015 Oliguria 04/07/2015 Immunizations Immunization Administration Dates Next Due Influenza, Quadrivalent, Spl it, Preservative Free, Intramuscular 01/14/2017 Influenza, Trivalent, Preservative Free, Intramu scular 02/29/2016,11/28/2014 Surgical History Surgery Date Site/Laterality Comments [place] XCAPSL CTRC RMVL INSJ IO LENS PROSTH [...] Tobacco: Never Tobacco Cessation:Counseling Given: Not Answered [facility] Utilities Answer Date Recorded In the past 12 months has th e [employer], gas, oil, or water company threatened to [...] often do you attend chur ch or adventist services? More than 4 times per year 05/09/2024 Do you belong to any clubs o r organizations such as rastafari groups, unions, fraternal or athletic groups, or [...] any time in the past 12 m [facility], were you homeless or living in a alf (including now)? No 05/09/2024 Personal Safety Answer Date Recorded Have you ever been in or are you currently in a harmful physical or emotional relationship or is someone making you feel afraid or unsafe? Denies 05/10/2024 Sex and Gender Information Value Date Recorded Sex Assigned at Not on file Legal Sex Male 12:50 AM MULTIMEDIA PRODUCTION ASSISTANT Gender Identity Not on file Sexual [...] ORDERABLES Fi nal Result Performing Organization Address [facility] Co de Phone Number [facility] [address] [place] [address] * (ABNORMAL) Hemoglobin A1c (05/09/2024 4:51 AM CDT) Pathologist [facility] Hgb A1C 6.6(H) 4.0 - 5.6 % Estimated Average Glucose 143 mg/dL [facility] Comment: The ADA recommends reporting an estimated Average Glucose (eAG) with all Hemoglobin A1c results using the equation derived from a study of 507 normal and diabetic adults. Minority populations were underrepresented and children were not included. (Diabetes Care 31:6622-8853, 2008). The eAG is not equivalent to a fasting glucose. Blood 05/09/2024 4:51 AM CDT 05/09/2024 5:14 AM CDT Johann Mcginnis NP LAB BLOOD ORDERABLES Final Result Performing Organization Address [facility] Co de Phone Number [facility] [address] [place] [address] * Lipid panel (07/01/2022 9:59 AM CDT) Cholesterol 127 <200 mg/dL [facility] HDL 45 > OR = 40 mg/dL [facility] [place] Triglycerides 84 <150 mg/dL [facility] [place] LDL 66 mg/dL (calc) [facility] [place] Comment: Reference range: <100 Desirable range <100 mg/dL for primary prevention; <70 mg/dL for patients with CHD or diabetic patients with > or = 2 CHD risk factors. LDL-C is now calculated using the Anjel-Ponce calculation, which is a validated novel method providing better accuracy than the Friedewald equation in the estimation of LDL-C. Anjel GUZMÁN et al. TRINIDAD. 2013;310(19): 0957-6637 (http://education.Edustation.me/faq/YWO511) Chol/HDL ratio 2.8 <5.0 (calc) [facility] [place] Non-HDL, (LDL+VLDL) 82 <130 mg/dL (calc) [facility] Comment: For patients with diabetes plus 1 major ASCVD risk factor, treating to a non-HDL-C goal of <100 mg/dL (LDL-C of <70 mg/dL) is considered a therapeutic option. Blood 07/01/2022 9:59 AM CDT 07/01/2022 10:05 AM CDT Narrative [facility] - 07/05/2022 3:06 PM CDT FASTING:YES PATIENT UNABLE TO VOID; ADVISED TO RETURN FOR COLLECTION. FASTING: YES Geraldine Stanford MINE GEOLOGIST LAB BLOOD ORDERABLES Final Result [facility] [facility] [address] [place] [address] * Albumin Creatinine Ratio, Urine (10/01/2020 11:05 [...] Fong MD LAB URINE ORDERABLES Final Result [facility] [employer] [address] [address] from Last 3 Months or Most Recently Relevant to Health Maintenance Insurance MEDICARE [facility] MEDICARE [place] [employer] [place] MEDIC[place] Advance Directives For more information, please contact: [phone] * Full Code (Latest Code Status on File) Date Activated Date Inactivated Comments 05/08/2024 10:47 AM 05/11/2024 8:29 PM Care Teams Blacktop Paver Operator Relationship Specialty Start Date End Date Antonio Peña MD PCP - General 10/18/16 Sandro Farris MD Consulting Physician Urology 01/30/18 Diana Fong MD Referring Physician Endocrinology Diabetes & Metabolism 01/30/18 Yaquelin Murillo MD PhD [address] [place] [address] Referring Physician Neurology 02/06/19 [place] [address] [place] [address] Consulting Physician Urology 05/11/24
[2024-11-07 08:22] LABS: Estimated Glomerular Filt Rate 38
== END 2024-11-07 07:48 | disposition home or self-care (01) ==
PROVIDERS: PCP Family Medicine Adolescent Medicine; Visit Provider Urology
DX: C64.2 Malignant neoplasm of left kidney, except renal pelvis (principal)
CPT/HCPCS: 71046; 74177; Q9967

== ENCOUNTER → 2024-11-19 07:52 | Outpatient (CLI) | payer MEDICARE, OTHER, SELFPAY ==
--- OUTSIDE RECORDS SUMMARY | 2008-12-05 09:00 | XMS_ITS | Continuity of Care Document ---
Author Organization [facility] Address [address] [place] [address] [address] [place] [address] Phone Care Team Providers Care Vocational Rehabilitation Supervisor Name Role Phone Reddy OD, Phani Unavailable Unavailable Procedures Procedure Date Eye Exam & Treatment Refraction Eye Exam & Treatment Refraction Advance Directives Directive Yes / No Effective Date File Name No Information Encounters Encounter Description Practice Location Reason(s) For Visit Diagnoses Date Provider Providers Copied on Encounter [facility], [address] [place] [address] [address], [place], [place], [id number], tel:[phone] [facility] No Information Nov-0 8-200 9 Rdedy OD Phani. [address] [facility] , [address], [place], [address], . tel:[phone] Referring Provider: Antonio Peña MD, [address] [place] [address], [address]. tel:[phone] [facility], [address] [place] [address] [address], [place], [place], [id number], tel:[phone] [facility] No Information 1-200 7 Reddy OD Phani. [address] [facility] [address], [address], [place], [address], . tel:[phone] Referring Provider: Antonio Peña MD, [address] [place] [address], [address]. tel:[phone] Family History Family Member Type Diagnosis Age At Onset No Information Payers Payer name Insurance type Covered constitution party ID Amena riggs(s) [employer] Vision Plan [id number] 2 Social History Type Description Quantity Date [...]
--- OUTSIDE RECORDS SUMMARY | 2024-11-19 08:18 | XMS_ITS | Clinical Summary ---
Author Organization [facility] Address [address] [place] [address] Care Team Providers Care Senior Budget Analyst Name Role Phone Antonio Peña MD Primary Care Prov ider Sandro Farris MD Unavailable [phone] Diana Fong MD Unavailable [phone] Yaquelin Murillo MD PhD Unavailable [phone] Kali Lewis MD Unavailable [phone] Allergies Active Allergy Reactions Criticality Noted Date [...] Plan (05/10/2024 5:18 PM CDT): Records from [facility] reviewed. CT abdomen pelvis shows [...] polycythemia Assessment & Plan (02/02/2018 9:48 AM COOK FISH EGGS): Defer to his urologist Mixed hyperlipidemia 02/02/2018 [...] control. Assessment & Plan (03/12/2020 3:19 PM COOK FISH EGGS): Continue statin, optimize glycemic control Assessment & Plan (08/30/2019 2:37 PM CDT): Continue statin, optimize glycemic control Assessment & Plan (08/09/2018 2:06 PM CDT): Continue statin, optimize glycemic control Assessment & Plan (02/02/2018 9:50 AM COOK FISH EGGS): Continue statin, [place] 3. Recent LDL within goal Type 2 [...] hypoglycemia. Assessment & Plan (03/12/2020 3:18 PM COOK FISH EGGS): Glucoses higher overnight and lower during the day, so needs adjustments in his insulin within a good margin of safety. We will also try to get results of his recent labs from his PCP Assessment & Plan (08/30/2019 2:37 PM CDT): Overall improving, glucoses within a good margin of safety. We can continue current medication, for now Assessment & Plan (02/06/2019 1:49 PM COOK FISH EGGS): Glucoses a little high sometimes after meals, [...] safety Assessment & Plan (02/02/2018 9:48 AM COOK FISH EGGS): Glucoses appear to be okay, but he [...] Tobacco: Never Tobacco Cessation:Counseling Given: Not Answered [facility] Utilities Answer Date Recorded In the past 12 months has th e [employer], gas, oil, or water company threatened to [...] often do you attend chur ch or zoroastrianism services? More than 4 times per year 05/09/2024 Do you belong to any clubs o r organizations such as orthodoxy groups, unions, fraternal or athletic groups, or [...] any time in the past 12 m [facility], were you homeless or living in a skilled nursing (including now)? No 05/09/2024 Personal Safety Answer Date Recorded Have you ever been in or are you currently in a harmful physical or emotional relationship or is someone making you feel afraid or unsafe? Denies 05/10/2024 Sex and Gender Information Value Date Recorded Sex Assigned at Not on file Legal Sex Male 12:50 AM COOK FISH EGGS Gender Identity Not on file Sexual Orientation [...] Additional history exists Covid-19 Vaccine (4 - 2024-2 6 season) 2024 12/28/2020, 05/22/2020, 04/24/2020 Influenza Vaccine (#1) 2024 [...] nal Result Performing Organization Address [facility] Co de Phone Number [facility] [address] [place] [address] * (ABNORMAL) Hemoglobin A1c (05/09/2024 4:51 AM CDT) Pathologist [facility] Hgb A1C 6.6(H) 4.0 - 5.6 % Estimated Average Glucose 143 mg/dL [facility] Comment: The ADA recommends reporting an estimated Average Glucose (eAG) with all Hemoglobin A1c results using the equation derived from a study of 507 normal and diabetic adults. Minority populations were underrepresented and children were not included. (Diabetes Care 31:6749-2652, 2008). The eAG is not equivalent to a fasting glucose. Blood 05/09/2024 4:51 AM CDT 05/09/2024 5:14 AM CDT Johann Mcginnis NP LAB BLOOD ORDERABLES Final Result Performing Organization Address [facility] Co de Phone Number [facility] [address] [place] [address] * Lipid panel (07/01/2022 9:59 AM CDT) Cholesterol 127 <200 mg/dL [facility] [place] HDL 45 > OR = 40 mg/dL [facility] [place] Triglycerides 84 <150 mg/dL [facility] [place] LDL 66 mg/dL (calc) [facility] [place] Comment: Reference range: <100 Desirable range <100 mg/dL for primary prevention; <70 mg/dL for patients with CHD or diabetic patients with > or = 2 CHD risk factors. LDL-C is now calculated using the Anjel-Ponce calculation, which is a validated novel method providing better accuracy than the Friedewald equation in the estimation of LDL-C. Anjel GUZMÁN et al. TRINIDAD. 2013;310(19): 5294-9845 (http://education.RoomReveal/faq/BID633) Chol/HDL ratio 2.8 <5.0 (calc) [facility] Non-HDL, (LDL+VLDL) 82 <130 mg/dL (calc) [facility] Comment: For patients with diabetes plus 1 major ASCVD risk factor, treating to a non-HDL-C goal of <100 mg/dL (LDL-C of <70 mg/dL) is considered a therapeutic option. Blood 07/01/2022 9:59 AM CDT 07/01/2022 10:05 AM CDT Narrative [facility] - 07/05/2022 3:06 PM CDT FASTING:YES PATIENT UNABLE TO VOID; ADVISED TO RETURN FOR COLLECTION. FASTING: YES Geraldine Stanford MIDDLE SCHOOL MUSIC TEACHER LAB BLOOD ORDERABLES Final Result [facility] [address] [place] [address] * Albumin Creatinine Ratio, Urine (10/01/2020 11:05 [...] Fong MD LAB URINE ORDERABLES Final Result [facility] [address] [address] from Last 3 Months or Most Recently Relevant to Health Maintenance Insurance MEDICARE [facility] MEDICARE [place] [employer] [place] MEDICARE Advance Directives For more information, please contact: [phone] * Full Code (Latest Code Status on File) Date Activated Date Inactivated Comments 05/08/2024 10:47 AM 05/11/2024 8:29 PM Care Teams Senior Budget Analyst Relationship Specialty Start Date End Date Antonio Peña MD PCP - General 10/18/16 Sandro Farris MD Consulting Physician Urology 01/30/18 Diana Fong MD Referring Physician Endocrinology Diabetes & Metabolism 01/30/18 Yaquelin Murillo MD PhD [address] [place] [address] Referring Physician Neurology 02/06/19 [place] [address] [place] [address] Consulting Physician Urology 05/11/24
--- OUTSIDE RECORDS SUMMARY | 2024-11-19 08:18 | XMS_ITS | Clinical Summary ---
Author Organization [facility] Address [address] [place] [address] Care Team Providers Care Wellness Coordinator Name Role Phone Unavailable Primary Care Provider Unavailabl e Social History Tobacco Use Types Packs/Day Years Used Date Smoking Tobacco: Never Assessed Sex and Gender Information Value Date Recorded Sex Assigned at Not on file Legal Sex Male 9:53 AM PORTRAIT ARTIST Gender Identity Not on file Sexual Orientation [...]
--- OUTSIDE RECORDS SUMMARY | 2024-11-19 08:18 | XMS_ITS | Clinical Summary ---
Author Organization [facility] Address [address] [place] [address] Care Team Providers Care Psychiatric Lpn Name Role Phone Antonio Peña MD Primary Care Provider + Source Comments [employer] [facility],non-owned Affiliates and Associated Physician Practices is amultiple site organization consisting of ambulatory clinics and hospital sitesin [place], [place], [place] and [place]. This disclosure is being madepursuant to the Care Everywhere program and may not contain all information available regarding this patient. Last updated 17.[employer] [facility] Allergies No known active allergies Medications * [...] on file Legal Sex Male 5:44 PM JIG AND FIXTURE REPAIRER Gender Identity Not on file Sexual Orientation [...] complete this topic Insurance [employer] Care Teams Psychiatric Lpn Relationship Specialty Start Date End Date Antonio Peña MD NPI: [id number] [place] [id number] PCP - General Family Medicine 01/14/17
--- OUTSIDE RECORDS SUMMARY | 2024-11-19 08:18 | XMS_ITS | Encounter Summary ---
Author Organization [facility] Address [address] [place] [address] Phone Care Team Providers Care Addictions Recovery Specialist Name Role Phone Antonio Peña MD Primary Care Prov ider Sandro Farris MD Unavailable [phone] Diana Fong MD Unavailable [phone] Yaquelin Murillo MD PhD Unavailable [phone] Kali Lewis MD Unavailable [phone] Encounter Details Date Type Department Care Team (Latest Contact Info) Description 08/06/2021 Orders Only GAINES SLEEP Scanning, Provider Social History Tobacco Use Types Packs/Day Years Used Date Smoking Tobacco: Former Smokeless Tobacco: Never Sex and Gender Information Value Date Recorded Sex Assigned at Not on file Legal Sex Male 12:[address] ENGINEER Gender Identity Not on file Sexual Orientation [...] on filedocumented in this encounter Care Teams Addictions Recovery Specialist Relationship Specialty Start Date End Date Antonio Peña MD PCP - General 10/18/16 Sandro Farris MD Consulting Physician Urology 01/30/18 Diana Fong MD Referring Physician Endocrinology Diabetes & Metabolism 01/30/18 Yaquelin Murillo MD PhD [address] [place] [address] Referring Physician Neurology 02/06/19 [place] [address] [place] [address] Consulting Physician Urology 05/11/24 documented as of this encounter
--- NOTE | 2024-12-16 21:41 | WPDSLEEPSTUD ---
Sleep Study Date of Study: 11/19/24 Ordering Provider: Yaquelin Arizmendi MD Interpreting Physician: Yaquelin Arizmendi MD Sleep Study Type: Polysomnogram Height: 1.78 m Weight: 90.718 kg Body Mass Index: 28.7 Neck Circumference (inches): 19 [place]: 9 Reason for Sleep Study Obstructive sleep apnea and REM behavior disorder, difficulty tolerating auto PAP, memory impairment Sleep History Ruben Salguero Jr is a 69-year-old man with obstructive sleep apnea and REM behavior disorder. He describes his sleep pattern as erratic and inconsistent. This is contributing to memory loss and difficulty with reasoning for the past several years. His father had difficult sleep patterns but did not have memory loss. The patient has tried PAP, melatonin 10 mg. He is currently not on PAP, was using APAP 5-15 cm with an average pressure of CPAP 6 cm until he felt that it was not helping him, and he quit. He also lost 40 lb in the last year. His describes him acting out his dreams at night. He rarely awakens from sleep feeling short of breath. He rarely wakes at night with heartburn, belching or coughing.??He frequently snores and it is occasionally loud enough that others complain. He has trouble sleeping when he has a cold. He occasionally wakes up gasping for breath during the night. He rarely has breathing problems at night reported to him by others He never sweats excessively at night. He never notices his heart pounding or beating irregularly during the night. He frequently falls asleep during the day. He frequently falls asleep involuntarily, he never falls asleep while driving. He never experiences loss of muscle tone with strong emotion. He never has daytime difficulty at work due to excessive sleepiness. He never feels paralyzed on waking or falling asleep. He occasionally experiences vivid dreams upon waking or falling asleep. He never feels afraid of going to sleep. He occasionally has nightmares. He rused to recall his dreams, but now only seldom can recall dream content. He occasionally has thoughts racing through his mind. He rarely feels sad or depressed. He rarely feels anxiety. He rarely notices parts of his body jerk. He rarely kicks during the night, rarely speaks at night. He rarely feels crawling or aching feelings in his legs. He rarely feels leg pain at night. He never has morning jaw pain, never grinds his teeth at night. He rarely feels bothered by pain during the day, never awakened by pain during the night. He occasionally wakes up feeling stiff in the morning, and he occasionally wakes feeling sore or achy. He rarely awakens with pain in his neck, spine, or joints. Normal bedtime is 11:00 p.m., and the amount of time it takes to fall asleep is variable, sometimes quickly and sometimes taking a very long while.. He wakes between 2 and 3 times during the night for 5-10 minutes. While awake, he goes to the bathroom to urinate, he may get up for a little bit but some of the time he just lies in bed awake trying to return to sleep. He wakes on average at 8:00 a.m.. He reports getting between 8 and 9 hours of sleep regularly. On weekends, bedtime is an hor later, midnight, wake time is 8:00 a.m. or later. He typically gets between 8 and 9 hours of sleep per night. He takes naps in the afternoon of evening, and s short nap lasting 1015 minutes may be refreshing. Habits:??Tobacco: none Caffeine: 1 or 2 cups per day Alcohol: 1 or 2 per week Recreational substances: none PMFSH Past Medical History Medical History History of renal cell cancer (04/2024) Hyperlipidemia Hypertension Type 2 diabetes mellitus Obstructive sleep apnea REM behavioral disorder Dementia of the Alzheimer's type Surgical History Surgical History History of left radical nephrectomy (04/2024) History of cataract surgery Family History Family History Sibling Patient's sister is in good health Patient's brother is in good health Mother Family history of emphysema Father Family history of congestive heart failure Diabetes mellitus Cerebrovascular accident Heart disease Grandparent Diabetes mellitus Social History Social History Social History: Caffeine-coffee Surrogate medical decision maker: Ivis Salguero, spouse Code status: Full code. Smoking status: Never smoker Second hand tobacco smoke exposure: No Alcohol intake: current Drinks per week: 1 Alcohol use details: pt says he drinks about 4-5 beers a month Substance use: never Substance use type: does not use Current Housing: Decline to Answer Concerned About Future Housing: Decline to Answer Difficulty Paying Gas/Electric Bills: Decline to Answer Difficulty Paying for Meds: Decline to Answer Currently Unemployed: Decline to Answer Education: Decline to Answer Difficulty w/ Childcare or Family Care: Decline to Answer Spiritual care concerns: No Agree to blood products: Yes Medications Home Medications ?Medication ?Instructions ?Recorded ?Confirmed ?Type melatonin 1 mg tablet 2 mg PO QHS 04/29/21 12/05/24 History testosterone 1.62 % (40.5 mg/2.5 See Rx Instructions topical QHS 01/11/23 12/05/24 History gram) transdermal gel packet blood sugar diagnostic (OneTouch #100 ea 11/22/23 12/05/24 Rx Ultra Test strips) blood-glucose meter (OneTouch #1 ea 11/22/23 12/05/24 Rx Verio Flex Meter) lancets 30 gauge (Onetouch Delica #200 ea 11/22/23 12/05/24 Rx Safety Lancet) pen needle, diabetic 32 gauge x #100 ea 03/27/24 12/05/24 Rx 5/32 (BD Daniella 2nd Gen Pen Needle) donepezil 10 mg tablet (Aricept) 10 mg PO QHS #90 tabs 04/25/24 12/05/24 Rx memantine 10 mg tablet 10 mg PO BID #180 tabs 04/25/24 12/05/24 Rx cholecalciferol (vitamin D3) 625 625 mcg PO WEEKLY 08/02/24 12/05/24 History mcg (25,000 unit) capsule empagliflozin 25 mg-linagliptin 5 1 tablet PO DAILY #90 tabs 08/02/24 12/05/24 Rx mg tablet (Glyxambi) lisinopril 10 mg tablet 10 mg PO DAILY #90 tabs 08/02/24 12/05/24 Rx simvastatin 20 mg tablet 20 mg PO DAILY #90 tabs 08/02/24 12/05/24 Rx fexofenadine 60 mg tablet (Annamaria 60 mg PO Q12H 11/13/24 12/05/24 History Allergy) tramadol 50 mg tablet 50 mg PO BID PRN pain 7 days #14 12/07/24 Rx tabs insulin degludec 100 unit/mL (3 20 unit (0.2 mL) subcut DAILY #30 12/10/24 Rx mL) subcutaneous pen (Tresiba mL FlexTouch U-100 insulin) Sleep Procedure A full night polysomnogram using the [employer] multi-channel system recorded the standard physiologic parameters including EEG, EOG, submentalis EMG, anterior tibialis EMG, EKG, body position, nasal and oral airflow using nasal pressure sensor and thermistor. Respiratory parameters of chest and abdominal movements were recorded with Respiratory Inductance Plethysmography belts. Oxygen saturation was recorded by pulse oximetry. Video monitoring was also performed. Sleep stages, periodic limb movements, and EEG arousals were scored in 30 second epochs according to the criteria of the AASM Scoring Manual. The Apnea-Hypopnea Index was calculated using [facility] guidelines for definition of hypopnea with 4% O2 desaturations while scoring respiratory events. This was scheduled as a split night study but he did not meet criteria early enough in the night so this was conducted as a full night basic nocturnal polysomnogram. Sleep Architecture The total recording time was 411.9 minutes. The total sleep time was 322.0 minutes. Sleep latency was 2.9 minutes. REM latency was 47.5 minutes. Sleep efficiency was 78.2%. The patient had 18 awakenings for an awakening index of 3.4. Wake after sleep onset time was 87.5 minutes. The patient spent 27.0 minutes, 8.4% of total sleep time in Stage N1. The patient spent 209.5 minutes, 65.1% in Stage N2. The patient spent 37.0 minutes, 11.5% in Stage N3. The patient spent 48.5 minutes, 15.1% in Stage REM sleep. Respiratory Analysis The patient had 1 hypopnea, 24 obstructive apneas, 1 mixed apnea, and 22 central apneas for an overall Apnea Hypopnea Index of 8.9. The REM Apnea Hypopnea Index was 23.5. The NREM Apnea Hypopnea Index was 7.0. The patient had a Central Apnea Hypopnea Index of 4.5. There were no Respiratory Effort Related Arousals. The Respiratory Disturbance Index is 11.2 events per hour. There was no evidence of Moris-Eaton Respirations. Arousals There were 32 total arousals for an arousal index of 6.0. There were 16 spontaneous arousals for an index of 3.0. There was 1 arousal due to respiratory events for an index of 0.2. There were 9 arousals due to periodic limb movements for an index of 1.7. There were 7 arousals due to isolated limb movements for an index of 1.3. Periodic Limb Movements The patient had 69 isolated limb movements with an index of 12.9. The patient had 221 periodic limb movements with an index of 41.2. Patient had a total of 290 limb movements with a total limb movement index of 54.0. Oximetry Data The patient had an average oxygen saturation of 95.6% in sleep with a minimum oxygen saturation of 89% and a maximum oxygen saturation of 98%. The patient had 11 oxygen desaturations that were 4% or greater resulting in an Oxygen Desaturation Index of 2.0. The patient spent no total sleep time with an oxygen saturation below 88%. Snoring Profile Snoring was mild and intermittent. Cardiac Profile The EKG showed normal sinus rhythm, average pulse rate of 53 bpm with a minimum pulse of rate of 43 bpm and a maximum pulse rate of 94 bpm. No arrhythmias noted. EEG Profile Unremarkable, no evidence of seizures. He does have evidence of REM without atonia on multiple epochs including 104, 106, 109, 112, 114, 119, 549, 552, 680, 683, 684, 692, 700, 701, 705, 706, 711 through 313, 716, and 718. Assessment and Plan Assessment and Plan (1) Obstructive sleep apnea: Code(s): G47.33 - Obstructive sleep apnea (adult) (pediatric) Status: Acute Assessment and Plan: This basic nocturnal polysomnogram on 11/19/2024 shows mild obstructive sleep apnea, the overall apnea-hypopnea index is 8.9, central apnea index 4.5 which is half of the total index. events are worse in the supine position, the supine AHI is 36.9, nonsupine AHI is 7.8. The REM AHI is 19.8 non-REM AHI 7.0. The patient desaturated to 89%. He had excessive limb movements total limb movement index of 54 without significant arousals. He needs have a full night CPAP titration in the lab to properly treat his obstructive sleep apnea which will also help to manage his REM behavior disorder. He did not have enough events early enough in the night to proceed with a split night study. he was previously on auto PAP with a mean pressure of 6 cm and was not tolerating it well this may be due to the fact that he has equal number of central apneas and obstructive apneas. Auto PAP can worsen central apneas. He may not have been able to tolerate it because he needed a fixed pressure. He had significant limb movements but these did not cause arousals and he does not have specific complaints of arousals from sleep due to kicking. He rarely has complaints consistent with restless legs syndrome. (2) REM behavioral disorder: Code(s): G47.52 - REM sleep behavior disorder Status: Acute Assessment and Plan: He has a history of REM behavior disorder. This basic nocturnal polysomnogram is consistent with findings that are seen in REM behavior disorder. He has REM without atonia. Treating obstructive sleep apnea can help reduce episodes of REM behavior disorder along with medication therapy. Safety is recommended as people with unmanaged REM behavior disorder are at prone to injuring themselves and others. Data The data obtained during this sleep study is adequate for interpretation. Certification This sleep study has been reviewed by a board certified sleep medicine physician.
[2024-12-19 11:17] VITALS: BMI 28.7
== END ==
LOC: ANHCSM 07:53
PROVIDERS: PCP Family Medicine Adolescent Medicine; Visit Provider Internal Medicine Critical Care Medicine
DX: G47.33 Obstructive sleep apnea (adult) (pediatric) (principal); G47.52 REM sleep behavior disorder
CPT/HCPCS: 95810; 95811

== ENCOUNTER 2024-12-07 15:54 | Emergency (ER) | payer MEDICARE, OTHER, SELFPAY ==
--- NOTE | ~2024-12-07 | XR_ITS ---
EXAMINATION: XR chest 2V, 12/07/2024 16:35 CDT HISTORY: chest pain X 4-5DAYS COMPARISON: No comparisons available. Technique: 2 views obtained. Findings: The lungs are clear, no effusion. No pneumothorax. Heart is normal size. Mediastinal and hilar contours are within normal limits. Bony thorax no acute abnormality. Impression: No acute cardiopulmonary abnormality. Reviewed, dictated and finalized at location P. Impression: No acute cardiopulmonary abnormality.
--- NOTE | ~2024-12-07 | CT_ITS ---
EXAMINATION: CT chest abdomen pelvis w con DATE: 12/07/2024 17:20 INDICATION: Left-sided chest wall pain post trauma TECHNIQUE: Computed tomography (CT) of the chest, abdomen, and pelvis was performed with 100 mL Omnipaque-350 intravenous contrast. Automated exposure control and iterative reconstruction technique were employed. The dose-length product was 919.59 mGy-cm. COMPARISON: CT abdomen and pelvis dated 11/07/2024 FINDINGS: CHEST CT: Bilateral calcified pulmonary nodules along with calcite left hilar and mediastinal lymph nodes consistent with old granulomatous disease. No pneumonia, pulmonary edema, pleural effusion or pneumothorax. Heart size is normal. Atherosclerotic coronary artery calcification is. No pericardial effusion. Th oracic aorta is normal in caliber with no dissection. Moderate thoracic spondylosis. Nondisplaced fractures of the anterolateral left fourth-sixth ribs. ABDOMEN/PELVIS CT: Liver, gallbladder spleen, pancreas, bilateral adrenal glands and right kidney are normal. Status post left nephrectomy. Bowels including the appendix are normal. No prosthesis with catheter extending along the right inguinal canal and reservoir within the anterior pelvic abdominal wall along the deep margin of the rectus abdominis muscle. Prostatomegaly measuring 5.5 x 4.6 cm. Bladder is normal. No free intraperitoneal gas or fluid. No pathologically enlarged abdominal or pelvic lymphadenopathy. Severe disc height loss at L1-L2. Otherwise mild lumbar spondylosis. No acute osseous abnormality. IMPRESSION: 1. Nondisplaced fractures of the anterolateral left fourth-sixth ribs. No acute vascular or visceral organ injury in the chest, abdomen or pelvis. 2. Status post left nephrectomy. Reviewed, dictated and finalized at location A.
--- NOTE | 2024-12-07 15:56 | ECG_ITS ---
Test Date: 2024-12-07 16:02:46 Measurements Intervals [place] Rate: 65 P: 39 CT: 161 QRS: 35 QRSD: 92 T: 45 QT: 357 QTc: 371 Interpretive Statements SINUS RHYTHM LOW QRS VOLTAGE IN PRECORDIAL LEADS BORDERLINE ECG No previous ECG available for comparison Electronically Signed On 12-07-2024 18:34:05 CDT by Ronaldo Hilliard D.O.
[2024-12-07 16:20] LABS: Hematocrit 45.5 % (42.0-52.0); Hemoglobin 15.3 g/dL (14.0-18.0); Immature Granulocyte Percent A 0.5 % (0-0.5); Lymphocytes Absolute Auto 1.94 K/mm3 (0.9-3.2); Mean Corpuscular HGB Conc 33.6 g/dl (32-36); Mean Corpuscular Hemoglobin 30.8 pg (26-34); Mean Corpuscular Volume 91.5 fl (80-100); Nucleated Red Blood Cells Absolute Auto 0.000 K/mm3 (0.0-0.012); Nucleated Red Blood Cells Perc 0.0 % (0.0-0.2); Platelet Count Result 206 k/mm3 (150-375); Red Blood Count 4.97 M/mm3 (4.6-6.20); White Blood Count 9.2 K/mm3 (4.5-10.0)
[2024-12-07 16:31] LABS: INR 1.0; Prothrombin Time 13.5 Seconds (11.1-14.7)
[2024-12-07 16:32] LABS: Partial Thromboplastin Time 27.9 Seconds (22.3-36.8)
[2024-12-07 16:33] LABS: Alanine Aminotransferase 23 U/L (6-50); Albumin Level 4.5 g/dL (3.5-5.1); Alkaline Phosphatase 72 U/L (38-126); Anion Gap 8 mmol/L (4-12); Aspartate Amino Transferase 33 U/L (17-59); Bilirubin,Total 0.4 mg/dL (0.2-1.3); Blood Urea Nitrogen 24 mg/dL (9-20); Calcium 9.1 mg/dL (8.4-10.2); Carbon Dioxide 24 mmol/L (22-30); Chloride 105 mmol/L (98-107); Estimated CRCL calculation 49 ml/min; Estimated Glomerular Filt Rate 53; Glucose 170 mg/dL (65-110); Lipase 787 U/L (23-300); Potassium 4.6 mmol/L (3.4-5.0); Sodium 137 mmol/L (137-145); Total Protein 7.7 g/dL (6.3-8.2)
[2024-12-07 16:43] LABS: Troponin I < 0.012 ng/mL (0.000-0.034)
--- NOTE | 2024-12-07 17:42 | ED_ITS ---
HPI - General Adult General Chief complaint: Chest Pain Stated complaint: fall with chest pain Time Seen by Provider: 12/07/24 15:58 History of Present Illness HPI narrative: 69-year-old male present to the emergency department for evaluation for left- sided chest pain. Patient states he fell while he was cutting the grass approximately 1 week ago. Patient reports he has had persistent left sided rib pain since that time. Patient states he is unsure if he struck his head during the fall. Patient states he does have issues with memory loss. Patient denies any other pain or injury. Related Data Home Medications ?Medication ?Instructions ?Recorded ?Confirmed ?Last Taken ?Type melatonin 1 mg tablet 2 mg PO QHS 04/29/21 5 Unknown History testosterone 1.62 % (40.5 mg/2.5 See Rx Instructions t opical QHS 01/11/23 12/05/24 Unknown History gram) transdermal gel packet cholecalciferol (vitamin D3) 625 625 mcg PO WEEKLY 07/2212/05/24 Unknown History mcg (25,000 unit) capsule fexofenadine 60 mg tablet (Annamaria 60 mg PO Q12H 11/1312/05/24 Unknown History Allergy) Allergies Allergy/AdvReac Type Severity Reaction Status Date / Time No Known Allergies Allergy Verified 12/05/24 09:54 Review of Systems 2 Review of Systems: All systems reviewed & are unremarkable except as noted in HPI and below PMFSH Past Medical History Medical History History of renal cell cancer (04/2024) Hyperlipidemia Hypertension Type 2 diabetes mellitus Obstructive sleep apnea REM behavioral disorder Dementia of the Alzheimer's type Surgical History Surgical History History of left radical nephrectomy (04/2024) History of cataract surgery Family History Family History Sibling Patient's sister is in good health Patient's brother is in good health Mother Family history of emphysema Father Family history of congestive heart failure Diabetes mellitus Cerebrovascular accident Heart disease Grandparent Diabetes mellitus Social History Social History Social History: Caffeine-coffee Surrogate medical decision maker: Ivis Salguero, spouse Code status: Full code. Smoking status: Never smoker Second hand tobacco smoke exposure: No Alcohol intake: current Drinks per week: 1 Alcohol use details: pt says he drinks about 4-5 beers a month Substance use: never Substance use type: does not use Current Housing: Decline to Answer Concerned About Future Housing: Decline to Answer Difficulty Paying Gas/Electric Bills: Decline to Answer Difficulty Paying for Meds: Decline to Answer Currently Unemployed: Decline to Answer Education: Decline to Answer Difficulty w/ Childcare or Family Care: Decline to Answer Spiritual care concerns: No Agree to blood products: Yes Exam 2 Narrative: APPEARANCE: Well appearing, no pain, no distress, well-nourished. HEAD: normocephalic, atraumatic. EYES: PERRLA/EOMI, conjunctivae clear. NOSE: Normal no drainage EARS:TMS clear with good light reflex. THROAT: Pharynx clear, no exudate. NECK: Supple. No adenopathy, no masses. RESPIRATORY: Airway patent, respirations nonlabored. Clear to auscultation bilaterally, no rales, rhonchi, wheezing. CARDIOVASCULAR: Regular rate and rhythm without murmurs rubs or gallops. ABDOMINAL: Soft, nontender, nondistended, normal bowel sounds MUSCULOSKELETAL: Left-sided rib tenderness to palpation NEURO: Alert. Cranial nerves II through XII intact. Good gait. Good coordination SKIN: Warm, dry. Normal Color Course Course Emergency Course: Patient was discharged to home. Medical Decision Making [facility] Narrative Medical decision making narrative: 69-year-old male presents emergency department for evaluation for left-sided rib pain that occurred a week ago when he had a fall. Patient is currently afebrile with no leukocytosis and hemoglobin of 15.3. INR is 1.0. CT does show evidence of left-sided 4,5,6th rib fractures. These are not acute rib fractures. Patient is stable emergency department. Patient was provided incentive spirometer in addition to medications for pain control. Patient was encouraged of close follow-up with his primary care physician. Patient was also educated on reasons to return to the emergency department. Differential Diagnosis Differential Diagnosis: Pneumonia, pneumothorax, rib fracture, flail chest, lung contusion, subdural hematoma, subarachnoid hemorrhage Lab Data 12/07/24 16:10 12/07/24 16:10 Labs: Lab Results 12/07/24 Range/Units 16:10 WBC 9.2 (4.5-10.0) K/mm3 RBC 4.97 (4.6-6.20) M/mm3 Hgb 15.3 (14.0-18.0) g/dL Hct 45.5 (42.0-52.0) % MCV 91.5 (80-100) fl MCH 30.8 (26-34) pg MCHC 33.6 (32-36) g/dl RDW 12.7 (11.5-14.5) % Plt Count 206 (150-375) k/mm3 MPV 10.3 (7.4-10.4) fl Immature Gran % (Auto) 0.5 (0-0.5) % Neut % (Auto) 65.4 (45.5-73.1) % Lymph % (Auto) 21.1 (18.3-44.2) % Leon % (Auto) 9.5 H (2.6-8.5) % Eos % (Auto) 3.1 (0-4.4) % Baso % (Auto) 0.4 (0.2-1.2) % Lymph # (Auto) 1.94 (0.9-3.2) K/mm3 Leon # (Auto) 0.9 H (0.1-0.6) K/mm3 Eos # (Auto) 0.3 (0-0.3) K/mm3 Baso # (Auto) 0.0 (0.0-0.1) K/mm3 Abs Immat Gran (auto) 0.05 H (0.00-0.031) K/mm3 Absolute Neuts (auto) 6.0 (1.3-6.7) K/mm3 Absolute Nucleated RBC 0.000 (0.0-0.012) K/mm3 Nucleated RBC % 0.0 (0.0-0.2) % PT 13.5 (11.1-14.7) Seconds INR 1.0 APTT 27.9 (22.3-36.8) Seconds Sodium 137 (137-145) mmol/L Potassium 4.6 (3.4-5.0) mmol/L Chloride 105 (98-107) mmol/L Carbon Dioxide 24 (22-30) mmol/L Anion Gap 8 (4-12) mmol/L BUN 24 H (9-20) mg/dL Creatinine 1.35 H (0.7-1.3) mg/dL Estim Creat Clear Calc 49 ml/min Estimated GFR 53 L (59 - ) Glucose 170 H (65-110) mg/dL Calcium 9.1 (8.4-10.2) mg/dL Total Bilirubin 0.4 (0.2-1.3) mg/dL AST 33 (17-59) U/L ALT 23 (6-50) U/L Alkaline Phosphatase 72 (38-126) U/L Troponin I < 0.012 (0.000-0.034) ng/mL Total Protein 7.7 (6.3-8.2) g/dL Albumin 4.5 (3.5-5.1) g/dL Lipase 787 H (23-300) U/L Discharge Plan Discharge Clinical Impression: Fracture of rib Patient Disposition: Home Condition: Stable Instructions: Antibiotic Form Additional Instructions: Ibuprofen for pain control, tramadol as needed for additional pain control. Incentive spirometer as directed. Have close follow-up with your primary care physician. If you have any worsening symptoms including worsening will difficulty breathing, worsening pain or onset of fever then please call or return to the emergency department. Patient Language: Armenian Prescriptions: New tramadol 50 mg tablet 50 mg PO BID PRN (Reason: pain) 7 Days Qty: 14 0RF No Action melatonin 1 mg tablet 2 mg PO QHS testosterone 1.62 % (40.5 mg/2.5 gram) gel in packet See Rx Instructions topical QHS Rx Instructions: 3 pumps topically every night at bedtime; 3 PUMPS memantine 10 mg tablet 10 mg PO BID Qty: 180 3RF donepezil [Aricept] 10 mg tablet 10 mg PO QHS Qty: 90 5RF cholecalciferol (vitamin D3) 625 mcg (25,000 unit) capsule 625 mcg PO WEEKLY Glyxambi 25-5 mg tablet 1 tablet PO DAILY Qty: 90 1RF lisinopril 10 mg tablet 10 mg PO DAILY Qty: 90 1RF simvastatin 20 mg tablet 20 mg PO DAILY Qty: 90 1RF (DME) lancets [Onetouch Delica Safety Lancet] 30 gauge misc See Rx Instructions .Route Qty: 200 3RF Rx Instructions: As directed (DME) blood-glucose meter [OneTouch Verio Flex meter] [facility] See Rx Instructions .Route Qty: 1 3RF Rx Instructions: As directed (DME) OneTouch Ultra Test Strip See Rx Instructions .ROUTE .MEDSUPPLY Qty: 100 0RF Rx Instructions: Check glucose 1-2 times a day fexofenadine [Annamaria Allergy] 60 mg tablet 60 mg PO Q12H (DME) pen needle, diabetic [BD Daniella 2nd Gen Pen Needle] 32 gauge x 5/32 needle See Rx Instructions .Route Qty: 100 2RF Rx Instructions: As directed to inject Tresiba insulin degludec [Tresiba FlexTouch U-100] 100 unit/mL (3 mL) insulin pen 20 unit subcut DAILY Qty: 30 1RF Follow-up/Referrals: nAtonio Peña MD [Primary Care Provider, Family Practice]
== END 2024-12-07 18:29 | disposition home or self-care (01) ==
PROVIDERS: Emergency Medicine; Emergency Provider Emergency Medicine; PCP Family Medicine Adolescent Medicine
DX: S22.42XA Multiple fractures of ribs, left side, initial encounter for closed fracture (principal); I10 Essential (primary) hypertension; E11.9 Type 2 diabetes mellitus without complications; E78.5 Hyperlipidemia, unspecified; G30.9 Alzheimer's disease, unspecified; F02.80 Dementia in other diseases classified elsewhere, unspecified severity, without behavioral disturbance, psychotic disturbance, mood disturbance, and anxiety; G47.33 Obstructive sleep apnea (adult) (pediatric); G47.52 REM sleep behavior disorder; Z85.528 Personal history of other malignant neoplasm of kidney; Z90.5 Acquired absence of kidney; Z98.49 Cataract extraction status, unspecified eye; R94.31 Abnormal electrocardiogram [ECG] [EKG]; W18.30XA Fall on same level, unspecified, initial encounter; Y93.H2 Activity, gardening and landscaping
CPT/HCPCS: 36415; 71046; 71260; 74177; 80053; 83690; 84484; 85025; 85610; 85730; 93005; 99284; Q9967

== ENCOUNTER 2025-01-28 10:10 | Outpatient (CLI) | payer MEDICARE, OTHER, SELFPAY ==
--- NOTE | ~2025-01-28 | CT_ITS ---
EXAMINATION: CT abdomen pelvis w con DATE: 01/28/2025 10:59 INDICATION: Renal cell carcinoma. TECHNIQUE: Computed tomography (CT) of the abdomen and pelvis was performed with 100 mL Omnipaque 350 intravenous contrast. Automated exposure control and iterative reconstruction technique were employed. The dose-length product was 1131.69 mGy-cm. COMPARISON: CT 12/07/2024, 05/03/2024 FINDINGS: The visualized portions of the lung bases demonstrate mild atelectasis. There is a 4 mm nodule in left lower lobe, stable from 05/03/2024, likely benign. No pleural effusion. The heart size is normal. No pericardial effusion. There are cysts in the liver measuring up to 7 mm. The gallbladder, s pleen, pancreas, adrenal glands, and right kidney are normal. There are changes of left nephrectomy. A penile prosthesis is noted. The prostate is moderately enlarged. The appendix is normal. There are no dilated loops of bowel. There are no pathologically enlarged lymph nodes. There is no free intraperitoneal fluid. There is moderate thoracic and lumbar spondylosis. IMPRESSION: 1. No specific evidence of metastatic disease. Reviewed, dictated and finalized at location E. YMAN
--- NOTE | ~2025-01-28 | XR_ITS ---
EXAMINATION: XR chest 2V, 01/28/2025 10:15 PROGRAM MANAGER HISTORY: renal cell carcinoma COMPARISON: No comparisons available. Technique: 2 views obtained. Findings: The lungs are clear, no effusion. No pneumothorax. Heart is normal size. Mediastinal and hilar contours are within normal limits. Bony thorax no acute abnormality. Impression: No acute cardiopulmonary abnormality. Reviewed, dictated and finalized at location P. RAM MANAGER Impression: No acute cardiopulmonary abnormality.
[2025-01-28 10:43] LABS: Estimated Glomerular Filt Rate 47
== END 2025-01-28 10:11 | disposition home or self-care (01) ==
LOC: MICIMG 10:11
PROVIDERS: PCP Urology; Visit Provider Urology
DX: C64.2 Malignant neoplasm of left kidney, except renal pelvis (principal)
CPT/HCPCS: 71046; 74177; Q9967

== ENCOUNTER → 2025-02-07 07:49 | Outpatient (CLI) | payer MEDICARE, OTHER, SELFPAY ==
--- NOTE | 2025-03-11 11:40 | WPDSLEEPSTUD ---
Sleep Study Date of Study: 02/07/25 Ordering Provider: Yaquelin Arizmendi MD Interpreting Physician: Yaquelin Arizmendi MD Sleep Study Type: CPAP Titration Height: 1.78 m Weight: 94.801 kg Body Mass Index: 29.9 Neck Circumference (inches): 19 [place]: 10 Reason for Sleep Study * 11/19/2024 PSG : mild obstructive sleep apnea,AHI 8.9, central AHI 4.5; supine AHI is 36.9; REM AHI is 19.8, desaturated to 89%. Excessive limb movements without arousals. Obstructive sleep apnea, REM behavior disorder; cannot tolerate APAP, returns for full night CPAP titration. Sleep History This is from his 11/19/24 sleep history. Ruben Salguero is a 69-year-old man with obstructive sleep apnea and REM behavior disorder. He describes his sleep pattern as erratic and inconsistent. This is contributing to memory loss and difficulty with reasoning for the past several years. His father had difficult sleep patterns but did not have memory loss. The patient has tried PAP, melatonin 10 mg. He is currently not on PAP, was using APAP 5-15 cm with an average pressure of CPAP 6 cm until he felt that it was not helping him, and he quit. He also lost 40 lb in the last year. His describes him acting out his dreams at night. He rarely awakens from sleep feeling short of breath. He rarely wakes at night with heartburn, belching or coughing.??He frequently snores and it is occasionally loud enough that others complain. He has trouble sleeping when he has a cold. He occasionally wakes up gasping for breath during the night. He rarely has breathing problems at night reported to him by others He never sweats excessively at night. He never notices his heart pounding or beating irregularly during the night. He frequently falls asleep during the day. He frequently falls asleep involuntarily, he never falls asleep while driving. He never experiences loss of muscle tone with strong emotion. He never has daytime difficulty at work due to excessive sleepiness. He never feels paralyzed on waking or falling asleep. He occasionally experiences vivid dreams upon waking or falling asleep. He never feels afraid of going to sleep. He occasionally has nightmares. He rused to recall his dreams, but now only seldom can recall dream content. He occasionally has thoughts racing through his mind. He rarely feels sad or depressed. He rarely feels anxiety. He rarely notices parts of his body jerk. He rarely kicks during the night, rarely speaks at night. He rarely feels crawling or aching feelings in his legs. He rarely feels leg pain at night. He never has morning jaw pain, never grinds his teeth at night. He rarely feels bothered by pain during the day, never awakened by pain during the night. He occasionally wakes up feeling stiff in the morning, and he occasionally wakes feeling sore or achy. He rarely awakens with pain in his neck, spine, or joints. Normal bedtime is 11:00 p.m., and the amount of time it takes to fall asleep is variable, sometimes quickly and sometimes taking a very long while.. He wakes between 2 and 3 times during the night for 5-10 minutes. While awake, he goes to the bathroom to urinate, he may get up for a little bit but some of the time he just lies in bed awake trying to return to sleep. He wakes on average at 8:00 a.m.. He reports getting between 8 and 9 hours of sleep regularly. On weekends, bedtime is an hor later, midnight, wake time is 8:00 a.m. or later. He typically gets between 8 and 9 hours of sleep per night. He takes naps in the afternoon of evening, and s short nap lasting 1015 minutes may be refreshing. Habits:??Tobacco: none Caffeine: 1 or 2 cups per day Alcohol: 1 or 2 per week Recreational substances: none PMFSH Past Medical History Medical History History of renal cell cancer (04/2024) Hyperlipidemia Hypertension Type 2 diabetes mellitus Obstructive sleep apnea REM behavioral disorder Dementia of the Alzheimer's type Surgical History Surgical History History of left radical nephrectomy (04/2024) History of cataract surgery Family History Family History Sibling Patient's sister is in good health Patient's brother is in good health Mother Family history of emphysema Father Family history of congestive heart failure Diabetes mellitus Cerebrovascular accident Heart disease Grandparent Diabetes mellitus Social History Social History Social History: Caffeine-coffee Surrogate medical decision maker: Ivis Jose M, spouse Code status: Full code. Smoking status: Never smoker Second hand tobacco smoke exposure: No Alcohol intake: current Drinks per week: 1 Alcohol use details: pt says he drinks about 4-5 beers a month Substance use: never Substance use type: does not use Current Housing: Decline to Answer Concerned About Future Housing: Decline to Answer Difficulty Paying Gas/Electric Bills: Decline to Answer Difficulty Paying for Meds: Decline to Answer Currently Unemployed: Decline to Answer Education: Decline to Answer Difficulty w/ Childcare or Family Care: Decline to Answer Spiritual care concerns: No Agree to blood products: Yes Medications Home Medications ?Medication ?Instructions ?Recorded ?Confirmed ?Type melatonin 1 mg tablet 2 mg PO QHS 04/29/21 01/17/25 History testosterone 1.62 % (40.5 mg/2.5 See Rx Instructions topical QHS 01/11/23 01/17/25 History gram) transdermal gel packet blood sugar diagnostic (OneTouch #100 ea 11/22/23 01/17/25 Rx Ultra Test strips) blood-glucose meter (OneTouch #1 ea 11/22/23 01/17/25 Rx Verio Flex Meter) lancets 30 gauge (Onetouch Delica #200 ea 11/22/23 01/17/25 Rx Safety Lancet) donepezil 10 mg tablet (Aricept) 10 mg PO QHS #90 tabs 04/25/24 01/17/25 Rx memantine 10 mg tablet 10 mg PO BID #180 tabs 04/25/24 01/17/25 Rx cholecalciferol (vitamin D3) 625 625 mcg PO WEEKLY 08/02/24 01/17/25 History mcg (25,000 unit) capsule fexofenadine 60 mg tablet (Annamaria 60 mg PO Q12H 11/13/24 01/17/25 History Allergy) amoxicillin 875 mg-potassium 1 tablet PO BID #20 tabs 01/17/25 01/17/25 Rx clavulanate 125 mg tablet methylprednisolone 4 mg tablets in See Rx Instructions PO PER PKG DIR 01/17/25 01/17/25 Rx a dose pack #21 ea lisinopril 10 mg tablet 10 mg PO DAILY #90 tabs 01/29/25 Rx empagliflozin 25 mg-linagliptin 5 1 tablet PO DAILY #90 tabs 02/19/25 Rx mg tablet (Glyxambi) simvastatin 20 mg tablet 20 mg PO DAILY #90 tabs 02/19/25 Rx insulin degludec 100 unit/mL (3 20 unit (0.2 mL) subcut DAILY #30 03/01/25 Rx mL) subcutaneous pen (Tresiba mL FlexTouch U-100 insulin) pen needle, diabetic 32 gauge x #100 ea 03/11/25 Rx Sleep Procedure A full CPAP polysomnogram using the VeraLight multi-channel system recorded the standard physiologic parameters including EEG, EOG, submentalis EMG, anterior tibialis EMG, EKG, body position, nasal and oral airflow using nasal pressure sensor and thermistor. Respiratory parameters of chest and abdominal movements were recorded with Respiratory Inductance Plethysmography belts. Oxygen saturation was recorded by pulse oximetry. Video monitoring was also performed. Sleep stages, periodic limb movements, and EEG arousals were scored in 30 second epochs according to the criteria of the AASM Scoring Manual. The Apnea-Hypopnea Index was calculated using CMS guidelines for definition of hypopnea while scoring respiratory events. The patient was started on CPAP using a large [employer] and Flowgear Solo nasal pillow mask with an initial pressure of CPAP 5 cm increasing in once cm increments to a maximum of CPAP 9 cm. At CPAP 9 cm, patient spent 51 minutes in bed, 4 minutes awake, 35 minutes in non-REM and 12 minutes in REM. Sleep efficiency was 92.2%. The residual apnea-hypopnea index was 6.4 and the lowest saturation was 93%. He had REM in the left lateral position. This is the optimal pressure. Sleep Architecture The total recording time was 417.6 minutes. The total sleep time was 350.5 minutes. Sleep latency was 3.9 minutes. REM latency was 49.0 minutes. Sleep efficiency was 83.9%. The patient had 38 awakenings for an awakening index of 6.5. Wake after Sleep Onset time was 63.5 minutes. The patient spent 35.0 minutes, 10.0% of total sleep time in Stage N1. The patient spent 213.0 minutes, 60.8% in Stage N2. The patient spent 30.0 minutes, 8.6% in Stage N3. The patient spent 72.5 minutes, 20.7% in Stage REM. Respiratory Analysis The patient had 3 hypopneas, 5 obstructive apneas, no mixed apneas, and 83 central apneas for an overall Apnea Hypopnea Index of 15.6 events per hour. The REM Apnea Hypopnea Index was 8.3. The NREM Apnea Hypopnea Index was 17.5. The patient had a Central Apnea Hypopnea Index of 14.2. There were no Respiratory Effort Related Arousals. The Respiratory Disturbance Index is 18.8 events per hour. There was no evidence of Moris-Eaton Respirations although he had segments of sinusoidal breathing, worse in the supine position. Arousals There were 91 total arousals for an arousal index of 15.6. There were 45 spontaneous arousals for an index of 7.7. There were 11 arousals due to respiratory events for an index of 1.9. There were 33 arousals due to periodic limb movements for an index of 5.6. There were 5 arousals due to isolated limb movements for an index of 0.9. Periodic Limb Movements The patient had 34 isolated limb movements with an index of 5.8. The patient had 420 periodic limb movements with index of 71.9. Patient had a total of 454 limb movements with a total limb movement index of 77.7. Oximetry Data The patient had an average oxygen saturation of 95.6% in sleep with a minimum oxygen saturation of 92.0% and a maximum oxygen saturation of 98.0%. The patient had 11 oxygen desaturations that were 4% or greater resulting in an Oxygen Desaturation Index of 1.9. The patient spent no sleep time with an oxygen saturation below 88%. Snoring Profile During titration, snoring was mild, and this was eliminated at the optimal pressure. Cardiac Profile The EKG showed normal sinus rhythm. The patient had an average pulse rate of 50 bpm with a minimum pulse rate of 41 bpm and a maximum pulse rate of 72 bpm. No arrhythmias noted. EEG Profile Unremarkable, no evidence of seizures. He does have evidence of REM without atonia on multiple epochs. Assessment and Plan Assessment and Plan (1) Obstructive sleep apnea: Code(s): G47.33 - Obstructive sleep apnea (adult) (pediatric) Status: Acute Assessment and Plan: This full night CPAP titration on 02/07/2025 shows an optimal pressure of CPAP 9 cm using a large [employer] Solo nasal pillow mask with and heated humidity. At CPAP 9 cm, patient spent 51 minutes in bed, 4 minutes awake, 35 minutes in non-REM and 12 minutes in REM. Sleep efficiency was 92.2%. The residual apnea-hypopnea index was 6.4 and the lowest saturation was 93%. He had REM in the left lateral position. This is the optimal pressure. The patient should be prescribed this ResMed equipment as well as tubing, filters and reservoir. This should be used with all episodes of sleep. Compliance should be reviewed within 31-90 days of starting therapy for usage greater than 4 hours per night greater than 70% of the nights. The patient should be asked about symptoms such as excessive daytime sleepiness, quality of sleep, decreased nocturia, increased mental functioning such as memory, mood, and concentration. He had central emergent apneas, had some on the baseline. At CPAP 9 cm, these were not significant. REM behavior disorder; clinically and demonstrated on his 11/19/24 PSG and this full night titration. Treating EDI will improved episodes of REM behavior. Safety is stressed. He has excessive periodic limb movements without arousals. PLM index was 71. Ferritin level is indicated to exclude iron deficiency anemia as a contributing factor. Ferritin should be 75 ng/mL or greater. If ferritin is below this, iron supplementation should be given to achieve ferritin of 75 ng/mL. There are nonpharmacologic methods to treat limb movements including daily exercise, stretching calf muscles before bed, avoiding excessive amounts of caffeine and alcohol, vitamin B supplementation, magnesium lotion massaged into legs before bed, and use of a weighted blanket. Pharmacologic therapy is very effective for restless legs syndrome and limb movements during sleep and may include [id number] voltage-gated calcium channel ligands such as gabapentin which is preferable to dopaminergic agents which can have augmentation. Data The data obtained during this sleep study is adequate for interpretation. Certification This sleep study has been reviewed by a board certified sleep medicine physician.
[2025-03-12 13:02] VITALS: BMI 29.9
== END ==
PROVIDERS: PCP Family Medicine Adolescent Medicine; Visit Provider Internal Medicine Critical Care Medicine
DX: G47.33 Obstructive sleep apnea (adult) (pediatric) (principal); G47.52 REM sleep behavior disorder; I10 Essential (primary) hypertension
CPT/HCPCS: 95811